=== PATIENT | male | born 1955 | race Hispanic/Latino ===

== ENCOUNTER 2018-12-13 10:05 | Outpatient (CLI) | payer MEDICAID, OTHER ==
[2018-12-13] MEDS ORDERED: XYLOCAINE TOPICAL 4% TP ONE (10:11)
[2018-12-13] MEDS ORDERED: AD OINTMENT TP SCH (12:00)
== END 2018-12-13 10:06 | disposition home or self-care (01) ==
LOC: WOUND 10:05
PROVIDERS: ATTEND Surgery
DX: I87.311 Chronic venous hypertension (idiopathic) with ulcer of right lower extremity (principal); E11.622 Type 2 diabetes mellitus with other skin ulcer; L97.812 Non-pressure chronic ulcer of other part of right lower leg with fat layer exposed; E11.40 Type 2 diabetes mellitus with diabetic neuropathy, unspecified; I89.0 Lymphedema, not elsewhere classified; F17.210 Nicotine dependence, cigarettes, uncomplicated

== ENCOUNTER 2018-12-20 10:57 | Outpatient (CLI) | payer OTHER | END 2018-12-20 10:58 | disposition home or self-care (01) | LOC: WOUND 10:57 | PROVIDERS: ATTEND Surgery | DX: E11.622 Type 2 diabetes mellitus with other skin ulcer (principal); I87.311 Chronic venous hypertension (idiopathic) with ulcer of right lower extremity; L97.812 Non-pressure chronic ulcer of other part of right lower leg with fat layer exposed; E11.40 Type 2 diabetes mellitus with diabetic neuropathy, unspecified; I89.0 Lymphedema, not elsewhere classified; F17.290 Nicotine dependence, other tobacco product, uncomplicated ==

== ENCOUNTER 2018-12-27 10:53 | Outpatient (CLI) | payer OTHER ==
[2018-12-27] MEDS ORDERED: XYLOCAINE TOPICAL 4% TP ONE (11:00)
== END 2018-12-27 10:54 | disposition home or self-care (01) ==
LOC: WOUND 10:53
PROVIDERS: ATTEND Surgery
DX: E11.622 Type 2 diabetes mellitus with other skin ulcer (principal); L97.812 Non-pressure chronic ulcer of other part of right lower leg with fat layer exposed; I87.311 Chronic venous hypertension (idiopathic) with ulcer of right lower extremity; E11.40 Type 2 diabetes mellitus with diabetic neuropathy, unspecified; I89.0 Lymphedema, not elsewhere classified; I10 Essential (primary) hypertension; I87.8 Other specified disorders of veins; F17.290 Nicotine dependence, other tobacco product, uncomplicated

== ENCOUNTER 2019-03-25 04:42 | Inpatient (IN) | payer OTHER ==
[2019-03-25] MEDS ORDERED: NACL 0.9% 1000 ML 1,000 ML IV ONE ×6 (05:02→16:36)
[2019-03-25 05:46] LABS: Hematocrit 31.5 % (35.5-45.6); Hemoglobin 10.6 gm/dl (11.8-15.2); Mean Corpuscular HGB Conc 34 % (32-34); Mean Corpuscular Volume 93 fl (84-94); Platelet Count 519 K/mm3 (140-440); Red Blood Count 3.38 M/mm3 (3.65-5.03); Red Cell Distribution Width 14.5 % (13.2-15.2)
--- NOTE | 2019-03-25 05:46 | XRay Report ---
PROCEDURE: XR CHEST 1V AP TECHNIQUE: Chest radiograph single view. HISTORY: hypotension COMPARISONS: None . FINDINGS: Single frontal view of the chest was acquired. The heart is mildly large. There is no evide nce of congestive heart failure. There is no consolidative infiltrate. IMPRESSION: Mild cardiomegaly. Otherwise, no active disease in the chest This document is electronically signed by Justin Foley MD., March 25 2019 05:44:58 AM ET
[2019-03-25 06:10] LABS: Albumin 2.2 g/dL (3.9-5); Calcium 8.8 mg/dL (8.4-10.2)
[2019-03-25] MEDS ORDERED: ZOSYN/NS 4.5GM/100ML 4.5 GM/100 ML VIAL IV ONE (06:10)
[2019-03-25] MEDS ORDERED: VANCOMYCIN PHARMACY TO DOSE IV ONE (06:18)
[2019-03-25] MEDS ORDERED: VANCOMYCIN 2,000 MG in NACL 0.9% 500 ML 500 ML IV ONE ×2 (06:30→11:30)
--- NOTE | 2019-03-25 07:05 | Cat Scan Report ---
PROCEDURE: CT ABDOMEN PELVIS WO CON TECHNIQUE: Routine axial imaging was obtained of the abdomen and pelvis without oral or IV contrast. Sagittal and coronal reconstructions were reviewed. HISTORY: abd pain COMPARISONS: None FINDINGS: Images through the lung bases reveal atelectatic changes and airspace disease in the left lower lobe. Pneumonia cannot be excluded. There is minimal atelectasis in the right lung base. The liver is normal in size and reveals diminished attenuation compatible hepatic steatosis. The gall bladder and biliary tree appear normal. The pancreas reveals partial fatty replacement. The spleen an d adrenal glands appear normal. The kidneys show no evidence of stones or hydronephrosis. There is a 2.5 cm benign cortical cyst in the middle third of the right kidney. There is calcification of the ab dominal aorta which is normal in caliber. The bowel loops are normal in caliber and course. The colon is not well-distended. Because of this the mucosa appears subtly prominent. There is minimal free fl uid in the pelvis and upper abdomen. In the pelvis the prostate gland and bladder appear normal. The skeletal structures reveal degenerative arthritic changes in the lumbar spine. IMPRESSION: Left lower lobe atelectatic changes and airspace disease. Developing pneumonia cannot be excluded. Mi nimal atelectasis right lung base. Hepatic steatosis. Partial fatty replacement of the pancreas. Small cortical cyst in the right kidney.. No evidence of hydronephrosis. Slight prominence of the mucosa in the colon which is in part related to poor distention of the colon . Mild colitis still cannot be excluded. Minimal ascites. Degenerative arthritic changes lumbar spine. Appendix not identified. No evidence of any inflammatory process in the right lower quadrant. This document is electronically signed by Natanael Hou MD., March 25 2019 07:02:38 AM ET
[2019-03-25] MEDS ORDERED: ATROVENT IH ONE (07:08)
[2019-03-25] MEDS ORDERED: PROVENTIL IH ONE ×2 (07:08→17:34)
[2019-03-25 07:31] LABS: INR 1.11 (0.87-1.13)
[2019-03-25 07:32] LABS: Partial Thromboplastin Time 31.4 Sec. (24.2-36.6)
[2019-03-25 07:35] LABS: Band Neutrophils # (Manual) 1.5 K/mm3; Basophils % (Manual) 0 % (0.0-1.8); Eosinophils % (Manual) 0 % (0.0-4.3); Myelocytes # (Manual) 0.5 K/mm3; Total Cells Counted 100
[2019-03-25 07:36] LABS: Anisocytosis 1+; Platelet Estimate Consistent w Auto
--- NOTE | 2019-03-25 07:47 | Emergency Department Report ---
ED General Adult HPI - General Chief complaint: Abdominal Pain Stated complaint: ABD PAIN Time Seen by Provider: 03/25/19 06:06 Source: patient, EMS Mode of arrival: Stretcher Limitations: No Limitations - History of Present Illness Initial comments: This is a 63 year old type II diabetic male who has had abdominal pain for approximately 1 week. It appears he mostly in the periumbilical suprapubic area. EMS was summoned on Wednesday and responded. Patient was informed he had an irregular heart rhythm at that time. He admits he did not want to go to the hospital. He states "hindsight is ". It is nice gentleman and quite cooperative. He presented to the emergency department prior to my arrival and was found to have a blood pressure in the 60s. Some preliminary medical screening was ordered. Initially after my encounter a plain CT of the abdomen was ordered to screen the patient for any sort of intra-abdominal catastrophe. It was essentially negative. Patient presents with his who states that he has been going to Dr. Casas at the wound care clinic; see associated records. Apparently he has not been admitted to the hospital here before. He has no prior history of abdominal surgery. He has wounds of his left leg as well as bilateral lymphedema. Patient admits to increasing leg swelling and redness. He denies any shortness of breath. However his breathing is obviously labored. He denies chest pain. He states the abdominal pain is been intermittent for nearly a week. -: Gradual, week(s) Location: abdomen Radiation: non-radiation Quality: aching Consistency: constant Improves with: none Worsens with: none Associated Symptoms: denies other symptoms Treatments Prior to Arrival: none - Related Data Allergies Allergy/AdvReac Type Severity Reaction Status Date / Time venom-honey bee AdvReac Shortness Verified 03/25/19 04:55 of Breath ED Review of Systems ROS: Stated complaint: ABD PAIN Other details as noted in HPI Constitutional: denies: chills, fever Eyes: denies: eye pain, eye discharge, vision change ENT: denies: ear pain, throat pain Respiratory: denies: cough, shortness of breath, wheezing Cardiovascular: denies: chest pain, palpitations Endocrine: no symptoms reported Gastrointestinal: abdominal pain. denies: nausea, vomiting, diarrhea Genitourinary: denies: urgency, dysuria Musculoskeletal: as per HPI. 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 Absent: tenderness, meningismus - Respiratory Respiratory exam: Present: respiratory distress, rhonchi (lateral) - Cardiovascular Cardiovascular Exam: Present: tachycardia, irregular rhythm. Absent: systolic murmur, diastolic murmur, rubs, gallop - GI/Abdominal GI/Abdominal exam: Present: soft, distended, tenderness (mild suprapubic), normal bowel sounds. Absent: guarding, rebound, rigid, organomegaly, mass (Limited exam) - Rectal Rectal exam: Present: deferred - Extremities Exam Extremities exam: Present: other (Jah lymphedema bilaterally with erythema of both legs and dressed wound on the right. Somewhat poorly palpated peripheral pulses but severe edema present. No signs of arterial ischemia) - Back Exam Back exam: Present: normal inspection - Neurological Exam Neurological exam: Present: alert, oriented X3 - Psychiatric Psychiatric exam: Present: normal affect, normal mood - Skin Skin exam: Present: warm, dry, intact, normal color. Absent: rash ED Course Vital Signs 03/25/19 03/25/19 03/25/19 04:44 04:49 05:00 Temperature 97.7 F Pulse Rate 81 85 82 Pulse Rate [ Anterior Bilateral] Respiratory 23 22 25 H Rate Respiratory Rate [Anterior Bilateral] Blood Pressure 63/32 59/20 O2 Sat by Pulse 96 90 Oximetry 03/25/19 03/25/19 03/25/19 05:15 05:30 05:45 Temperature Pulse Rate 77 83 86 Pulse Rate [ Anterior Bilateral] Respiratory 24 28 H 25 H Rate Respiratory Rate [Anterior Bilateral] Blood Pressure 58/31 61/29 71/35 O2 Sat by Pulse Oximetry 03/25/19 03/25/19 03/25/19 06:00 06:15 06:52 Temperature Pulse Rate 93 H 95 H 100 H Pulse Rate [ Anterior Bilateral] Respiratory 26 H 23 31 H Rate Respiratory Rate [Anterior Bilateral] Blood Pressure 63/36 74/44 O2 Sat by Pulse 99 Oximetry 03/25/19 03/25/19 03/25/19 06:59 07:04 07:06 Temperature Pulse Rate 96 H 98 H Pulse Rate [ Anterior Bilateral] Respiratory 34 H 28 H 29 H Rate Respiratory Rate [Anterior Bilateral] Blood Pressure O2 Sat by Pulse Oximetry 03/25/19 03/25/19 03/25/19 07:08 07:10 07:12 Temperature Pulse Rate 98 H 99 H 99 H Pulse Rate [ Anterior Bilateral] Respiratory 26 H 28 H 27 H Rate Respiratory Rate [Anterior Bilateral] Blood Pressure 80/43 O2 Sat by Pulse 80 L Oximetry 03/25/19 03/25/19 03/25/19 07:13 07:14 07:15 Temperature Pulse Rate 101 H 98 H 98 H Pulse Rate [ Anterior Bilateral] Respiratory 28 H 26 H 28 H Rate Respiratory Rate [Anterior Bilateral] Blood Pressure 80/43 80/43 73/42 O2 Sat by Pulse 95 91 Oximetry 03/25/19 03/25/19 03/25/19 07:16 07:20 07:30 Temperature Pulse Rate 105 H 98 H Pulse Rate [ 101 H Anterior Bilateral] Respiratory 28 H 29 H Rate Respiratory 24 Rate [Anterior Bilateral] Blood Pressure 79/39 82/45 O2 Sat by Pulse 91 Oximetry 03/25/19 03/25/19 03/25/19 07:40 07:42 07:46 Temperature Pulse Rate 104 H 111 H Pulse Rate [ 106 H Anterior Bilateral] Respiratory 29 H 26 H Rate Respiratory 22 Rate [Anterior Bilateral] Blood Pressure 93/54 89/46 O2 Sat by Pulse 90 Oximetry 03/25/19 03/25/19 03/25/19 07:50 07:56 08:00 Temperature Pulse Rate 115 H 111 H 106 H Pulse Rate [ Anterior Bilateral] Respiratory 21 22 27 H Rate Respiratory Rate [Anterior Bilateral] Blood Pressure 79/46 79/39 84/54 O2 Sat by Pulse 81 L 92 80 L Oximetry 03/25/19 03/25/19 03/25/19 08:06 08:10 08:16 Temperature Pulse Rate 141 H 114 H 121 H Pulse Rate [ Anterior Bilateral] Respiratory 20 21 21 Rate Respiratory Rate [Anterior Bilateral] Blood Pressure 84/54 79/39 104/64 O2 Sat by Pulse 86 90 Oximetry 03/25/19 03/25/19 03/25/19 08:20 08:26 08:30 Temperature Pulse Rate 143 H 151 H 155 H Pulse Rate [ Anterior Bilateral] Respiratory 22 22 19 Rate Respiratory Rate [Anterior Bilateral] Blood Pressure 104/64 104/64 99/56 O2 Sat by Pulse 86 85 80 L Oximetry 03/25/19 03/25/19 03/25/19 08:36 08:40 08:45 Temperature Pulse Rate 143 H 150 H 163 H Pulse Rate [ Anterior Bilateral] Respiratory 24 16 19 Rate Respiratory Rate [Anterior Bilateral] Blood Pressure 99/56 99/56 105/60 O2 Sat by Pulse 75 L 65 L 69 L Oximetry 03/25/19 03/25/19 03/25/19 08:50 08:56 09:00 Temperature Pulse Rate 137 H 117 H 120 H Pulse Rate [ Anterior Bilateral] Respiratory 16 17 22 Rate Respiratory Rate [Anterior Bilateral] Blood Pressure 105/60 105/60 105/60 O2 Sat by Pulse 91 89 87 Oximetry 03/25/19 03/25/19 03/25/19 09:06 09:10 09:16 Temperature Pulse Rate 122 H 116 H 114 H Pulse Rate [ Anterior Bilateral] Respiratory 22 25 H 27 H Rate Respiratory Rate [Anterior Bilateral] Blood Pressure 79/47 79/47 75/57 O2 Sat by Pulse 91 60 L Oximetry 03/25/19 03/25/19 03/25/19 09:20 09:26 09:30 Temperature Pulse Rate 114 H 112 H 112 H Pulse Rate [ Anterior Bilateral] Respiratory 24 20 22 Rate Respiratory Rate [Anterior Bilateral] Blood Pressure 75/57 75/57 117/85 O2 Sat by Pulse 89 Oximetry - Reevaluation(s) Reevaluation #1: CT abdomen and pelvis really showed nothing acute. Dr. Chavarria was involved in the case early on and came to see the patient. The patient required fluid bolus spite it is elevated BNP as he was substantially hypotensive. His blood pressure did transiently rise to the 90s and low 100s. However, it dropped to the 70s again despite fluid. Patient continued to state that he was not having breathing difficulty although he did appear to have an obvious increased work of breathing. Ultimately it was decided to place a central line in his right femoral vein. This was really the only available access as the patient literally has no neck and a very kyphotic chest. Anatomically this was the only option short of a PICC line which was not available. That was placed without difficulty. I decided to utilize dopamine with the hope that this might be a better choice than Levophed considering the patient's congestive heart failure. A Elder was placed. Patient was given antibiotic coverage initially by me and further coverage per hospitalist staff. Patient continued to mentate well. He states his abdominal pain had improved. He was given bicarbonate and insulin/D50. It is expected that his potassium of 5.6 should improve considering his prerenal state. Another BMP is ordered. Lactic acid level of 4 decreased to 2.4. The patient did not complain of shortness of breath. Notwithstanding, he was placed on BiPAP. I did observe him to be ventilating well after BiPAP which he accepted without difficulty. Patient will be admitted to the intensive care unit for further care and evaluation and treatment by the hospitalist staff/their consultants. 03/25/19 11:30 03/25/19 11:35 03/25/19 11:36 - Central Line Placement Right Femoral Consent Obtained: verbal consent Time Out Performed: No Patient Placed on Monitor/Pulse Ox: Yes Prep: mask, gown, gloves Central Line Prep: Povidone-Iodine 1%, Chlorhexidine scrub Local Anesthesia Used: Lidocaine 1% Amount of Anesthesia Used (mls): 8 Ultrasound Used for Placement: No Central Line Lumen Inserted: triple Bloods Obtained for Lab: No Central Line Position: good blood return (dark red nonpulsatile), sutured in place with nyl Dressing Applied: Tegaderm, other (antibiotic this) Patient Tolerated Procedure: well (single attempt) Complications: none ED Medical Decision Making - Lab Data Result diagrams: 03/25/19 05:20 03/25/19 05:20 Laboratory Results - last 24 hr 03/25/19 03/25/19 03/25/19 05:11 05:20 05:20 WBC 25.2 H RBC 3.38 L Hgb 10.6 L Hct 31.5 L MCV 93 MCH 31 MCHC 34 RDW 14.5 Plt Count 519 H Add Manual Diff Complete Total Counted 100 Seg Neuts % (Manual) 80.0 H Band Neutrophils % 6.0 Lymphocytes % (Manual) 5.0 L Reactive Lymphs % (Man) 0 Monocytes % (Manual) 7.0 Eosinophils % (Manual) 0 Basophils % (Manual) 0 Metamyelocytes % 0 Myelocytes % 2.0 Promyelocytes % 0 Blast Cells % 0 Nucleated RBC % Not Reportable Seg Neutrophils # Man 20.2 H Band Neutrophils # 1.5 Lymphocytes # (Manual) 1.3 Abs React Lymphs (Man) 0.0 Monocytes # (Manual) 1.8 H Eosinophils # (Manual) 0.0 Basophils # (Manual) 0.0 Metamyelocytes # 0.0 Myelocytes # 0.5 Promyelocytes # 0.0 Blast Cells # 0.0 WBC Morphology Not Reportable Hypersegmented Neuts Not Reportable Hyposegmented Neuts Not Reportable Hypogranular Neuts Not Reportable Smudge Cells Not Reportable Toxic Granulation Not Reportable Toxic Vacuolation Not Reportable Dohle Bodies Not Reportable Pelger-Huet Anomaly Not Reportable Gianluca Rods Not Reportable Platelet Estimate Consistent w auto Clumped Platelets Not Reportable Plt Clumps, EDTA Not Reportable Large Platelets Not Reportable Giant Platelets Not Reportable Platelet Satelliting Not Reportable Plt Morphology Comment Not Reportable RBC Morphology Not Reportable Dimorphic RBCs Not Reportable Polychromasia Not Reportable Hypochromasia Not Reportable Poikilocytosis Not Reportable Anisocytosis 1+ Microcytosis Not Reportable Macrocytosis Not Reportable Spherocytes Not Reportable Pappenheimer Bodies Not Reportable Sickle Cells Not Reportable Target Cells Not Reportable Tear Drop Cells Not Reportable Ovalocytes Not Reportable Helmet Cells Not Reportable [place] Bodies Not Reportable [place] Rings Not Reportable Kwame Cells Not Reportable Bite Cells Not Reportable Crenated Cell Not Reportable Elliptocytes Not Reportable Acanthocytes (Spur) Not Reportable Rouleaux Not Reportable Hemoglobin C Crystals Not Reportable Schistocytes Not Reportable Malaria parasites Not Reportable Didier Bodies Not Reportable Hem Pathologist Commnt No PT INR APTT POC ABG pH POC ABG pCO2 POC ABG pO2 POC ABG HCO3 POC ABG Total CO2 POC ABG O2 Sat POC ABG Base Excess FiO2 Sodium 156 H Potassium 5.4 H Chloride 117.6 H Carbon Dioxide 16 L Anion Gap 28 BUN 99 H Creatinine 4.3 H Estimated GFR 14 BUN/Creatinine Ratio 23 Glucose 73 L POC Glucose 74 Lactic Acid Calcium 8.8 Magnesium Total Bilirubin 0.30 AST 54 H ALT 35 Alkaline Phosphatase 185 H Total Creatine Kinase CK-MB (CK-2) CK-MB (CK-2) Rel Index Troponin T NT-Pro-B Natriuret Pep Total Protein 7.3 Albumin 2.2 L Albumin/Globulin Ratio 0.4 Lipase Blood Type Antibody Screen 03/25/19 03/25/19 03/25/19 05:20 05:20 05:40 WBC RBC Hgb Hct MCV MCH MCHC RDW Plt Count Add Manual Diff Total Counted Seg Neuts % (Manual) Band Neutrophils % Lymphocytes % (Manual) Reactive Lymphs % (Man) Monocytes % (Manual) Eosinophils % (Manual) Basophils % (Manual) Metamyelocytes % Myelocytes % Promyelocytes % Blast Cells % Nucleated RBC % Seg Neutrophils # Man Band Neutrophils # Lymphocytes # (Manual) Abs React Lymphs (Man) Monocytes # (Manual) Eosinophils # (Manual) Basophils # (Manual) Metamyelocytes # Myelocytes # Promyelocytes # Blast Cells # WBC Morphology Hypersegmented Neuts Hyposegmented Neuts Hypogranular Neuts Smudge Cells Toxic Granulation Toxic Vacuolation Dohle Bodies Pelger-Huet Anomaly Gianluca Rods Platelet Estimate Clumped Platelets Plt Clumps, EDTA Large Platelets Giant Platelets Platelet Satelliting Plt Morphology Comment RBC Morphology Dimorphic RBCs Polychromasia Hypochromasia Poikilocytosis Anisocytosis Microcytosis Macrocytosis Spherocytes Pappenheimer Bodies Sickle Cells Target Cells Tear Drop Cells Ovalocytes Helmet Cells [place] Bodies [place] Rings [place] Cells Bite Cells Crenated Cell Elliptocytes Acanthocytes (Spur) Rouleaux Hemoglobin C Crystals Schistocytes Malaria parasites Didier Bodies Hem Pathologist Commnt PT INR APTT POC ABG pH POC ABG pCO2 POC ABG pO2 POC ABG HCO3 POC ABG Total CO2 POC ABG O2 Sat POC ABG Base Excess FiO2 Sodium Potassium Chloride Carbon Dioxide Anion Gap BUN Creatinine Estimated GFR BUN/Creatinine Ratio Glucose POC Glucose 81 Lactic Acid 4.00 H* Calcium Magnesium 2.30 Total Bilirubin AST ALT Alkaline Phosphatase Total Creatine Kinase 773 H CK-MB (CK-2) 40.0 H CK-MB (CK-2) Rel Index 5.1 H Troponin T < 0.010 NT-Pro-B Natriuret Pep 976.1 H Total Protein Albumin Albumin/Globulin Ratio Lipase 36 Blood Type Antibody Screen 03/25/19 03/25/19 03/25/19 06:47 07:14 07:29 WBC RBC Hgb Hct MCV MCH MCHC RDW Plt Count Add Manual Diff Total Counted Seg Neuts % (Manual) Band Neutrophils % Lymphocytes % (Manual) Reactive Lymphs % (Man) Monocytes % (Manual) Eosinophils % (Manual) Basophils % (Manual) Metamyelocytes % Myelocytes % Promyelocytes % Blast Cells % Nucleated RBC % Seg Neutrophils # Man Band Neutrophils # Lymphocytes # (Manual) Abs React Lymphs (Man) Monocytes # (Manual) Eosinophils # (Manual) Basophils # (Manual) Metamyelocytes # Myelocytes # Promyelocytes # Blast Cells # WBC Morphology Hypersegmented Neuts Hyposegmented Neuts Hypogranular Neuts Smudge Cells Toxic Granulation Toxic Vacuolation Dohle Bodies Pelger-Huet Anomaly Gianluca Rods Platelet Estimate Clumped Platelets Plt Clumps, EDTA Large Platelets Giant Platelets Platelet Satelliting Plt Morphology Comment RBC Morphology Dimorphic RBCs Polychromasia Hypochromasia Poikilocytosis Anisocytosis Microcytosis Macrocytosis Spherocytes Pappenheimer Bodies Sickle Cells Target Cells Tear Drop Cells Ovalocytes Helmet Cells [place] Bodies [place] Rings [place] Cells Bite Cells Crenated Cell Elliptocytes Acanthocytes (Spur) Rouleaux Hemoglobin C Crystals Schistocytes Malaria parasites Didier Bodies Hem Pathologist Commnt PT 15.0 H INR 1.11 APTT 31.4 POC ABG pH 7.270 L POC ABG pCO2 37.2 POC ABG pO2 65 L POC ABG HCO3 17.1 POC ABG Total CO2 18 POC ABG O2 Sat 90 POC ABG Base Excess -10 FiO2 32 Sodium Potassium Chloride Carbon Dioxide Anion Gap BUN Creatinine Estimated GFR BUN/Creatinine Ratio Glucose POC Glucose 109 H Lactic Acid Calcium Magnesium Total Bilirubin AST ALT Alkaline Phosphatase Total Creatine Kinase CK-MB (CK-2) CK-MB (CK-2) Rel Index Troponin T NT-Pro-B Natriuret Pep Total Protein Albumin Albumin/Globulin Ratio Lipase Blood Type Antibody Screen 03/25/19 03/25/19 03/25/19 08:49 08:54 09:31 WBC RBC Hgb Hct MCV MCH MCHC RDW Plt Count Add Manual Diff Total Counted Seg Neuts % (Manual) Band Neutrophils % Lymphocytes % (Manual) Reactive Lymphs % (Man) Monocytes % (Manual) Eosinophils % (Manual) Basophils % (Manual) Metamyelocytes % Myelocytes % Promyelocytes % Blast Cells % Nucleated RBC % Seg Neutrophils # Man Band Neutrophils # Lymphocytes # (Manual) Abs React Lymphs (Man) Monocytes # (Manual) Eosinophils # (Manual) Basophils # (Manual) Metamyelocytes # Myelocytes # Promyelocytes # Blast Cells # WBC Morphology Hypersegmented Neuts Hyposegmented Neuts Hypogranular Neuts Smudge Cells Toxic Granulation Toxic Vacuolation Dohle Bodies Pelger-Huet Anomaly Gianluca Rods Platelet Estimate Clumped Platelets Plt Clumps, EDTA Large Platelets Giant Platelets Platelet Satelliting Plt Morphology Comment RBC Morphology Dimorphic RBCs Polychromasia Hypochromasia Poikilocytosis Anisocytosis Microcytosis Macrocytosis Spherocytes Pappenheimer Bodies Sickle Cells Target Cells Tear Drop Cells Ovalocytes Helmet Cells [place] Bodies [place] Rings Kwame Cells Bite Cells Crenated Cell Elliptocytes Acanthocytes (Spur) Rouleaux Hemoglobin C Crystals Schistocytes Malaria parasites Didier Bodies Hem Pathologist Commnt PT INR APTT POC ABG pH POC ABG pCO2 POC ABG pO2 POC ABG HCO3 POC ABG Total CO2 POC ABG O2 Sat POC ABG Base Excess FiO2 Sodium Potassium Chloride Carbon Dioxide Anion Gap BUN Creatinine Estimated GFR BUN/Creatinine Ratio Glucose POC Glucose Lactic Acid 2.40 H* 1.70 Calcium Magnesium Total Bilirubin AST ALT Alkaline Phosphatase Total Creatine Kinase CK-MB (CK-2) CK-MB (CK-2) Rel Index Troponin T NT-Pro-B Natriuret Pep Total Protein Albumin Albumin/Globulin Ratio Lipase Blood Type O POSITIVE Antibody Screen Negative 03/25/19 11:06 WBC RBC Hgb Hct MCV MCH MCHC RDW Plt Count Add Manual Diff Total Counted Seg Neuts % (Manual) Band Neutrophils % Lymphocytes % (Manual) Reactive Lymphs % (Man) Monocytes % (Manual) Eosinophils % (Manual) Basophils % (Manual) Metamyelocytes % Myelocytes % Promyelocytes % Blast Cells % Nucleated RBC % Seg Neutrophils # Man Band Neutrophils # Lymphocytes # (Manual) Abs React Lymphs (Man) Monocytes # (Manual) Eosinophils # (Manual) Basophils # (Manual) Metamyelocytes # Myelocytes # Promyelocytes # Blast Cells # WBC Morphology Hypersegmented Neuts Hyposegmented Neuts Hypogranular Neuts Smudge Cells Toxic Granulation Toxic Vacuolation Dohle Bodies Pelger-Huet Anomaly Gianluca Rods Platelet Estimate Clumped Platelets Plt Clumps, EDTA Large Platelets Giant Platelets Platelet Satelliting Plt Morphology Comment RBC Morphology Dimorphic RBCs Polychromasia Hypochromasia Poikilocytosis Anisocytosis Microcytosis Macrocytosis Spherocytes Pappenheimer Bodies Sickle Cells Target Cells Tear Drop Cells Ovalocytes Helmet Cells [place] Bodies [place] Rings Kwame Cells Bite Cells Crenated Cell Elliptocytes Acanthocytes (Spur) Rouleaux Hemoglobin C Crystals Schistocytes Malaria parasites Didier Bodies Hem Pathologist Commnt PT INR APTT POC ABG pH 7.169 L POC ABG pCO2 43.7 POC ABG pO2 63 L POC ABG HCO3 15.9 POC ABG Total CO2 17 POC ABG O2 Sat 85 POC ABG Base Excess -13 FiO2 45 Sodium Potassium Chloride Carbon Dioxide Anion Gap BUN Creatinine Estimated GFR BUN/Creatinine Ratio Glucose POC Glucose Lactic Acid Calcium Magnesium Total Bilirubin AST ALT Alkaline Phosphatase Total Creatine Kinase CK-MB (CK-2) CK-MB (CK-2) Rel Index Troponin T NT-Pro-B Natriuret Pep Total Protein Albumin Albumin/Globulin Ratio Lipase Blood Type Antibody Screen - EKG Data -: EKG Interpreted by Ga EKG shows normal: axis (normal), intervals (intraventricular conduction delay right bundloid) Rate: tachycardia - EKG Data When compared to previous EKG there are: previous EKG unavailable Interpretation: nonspecific ST-T wave luz Atrial fibrillation versus multifocal atrial tachycardia 03/25/19 11:43 - Radiology Data Radiology results: report reviewed (CT abdomen and pelvis have initiated, Dopplers no DVT no mention of arterial flow problems, chest x-ray cardiomegaly without decompensation) Critical Care Time: Yes Critical care time in (mins) excluding proc time.: 110 Critical care attestation.: If time is entered above; I have spent that time in minutes in the direct care of this critically ill patient, excluding procedure time. ED Disposition Clinical Impression: Septic shock, Lymphangitis, Atrial fibrillation with RVR, Prerenal azotemia, Hyperkalemia Disposition: [id number] OP ADMIT IP TO THIS HOSP Is pt being admited?: Yes Does the pt Need Aspirin: Yes Condition: Stable Time of Disposition: 11:44
[2019-03-25] MEDS ORDERED: D50W (25GM) Syringe IV ONE ×4 (07:50→23:00)
[2019-03-25] MEDS ORDERED: HumuLIN R IV ONE ×3 (07:50→23:00)
[2019-03-25] MEDS ORDERED: XYLOCAINE 1% 20 mL ONE (08:20)
--- NOTE | 2019-03-25 09:04 | Vascular Lab Report ---
PROCEDURE: VL VENOUS DUPLEX LE BILAT TECHNIQUE: Grayscale, color and spectral Doppler ultrasound evaluation of both lower extremities for DVT HISTORY: leg swelling hypotension COMPARISONS: None FINDINGS: The deep veins in the right lower extremity demonstrate normal compression, color Doppler appearance and spectral Doppler waveforms. Normal respiratory variation and response to augmentation (where perf ormed.) The deep veins in the left lower extremity demonstrate normal compression, color Doppler appearance a nd spectral Doppler waveforms. Normal respiratory variation and response to augmentation (where perfo rmed.) IMPRESSION: No sonographic evidence of DVT in the imaged portions of the right and left lower extremities. This document is electronically signed by Washington Doyle MD., March 25 2019 09:02:48 AM ET
[2019-03-25] MEDS ORDERED: INTROPIN DRIP 800 MG/D5W 250 ML 800 MG/250 ML BAG IV ONE (09:36)
[2019-03-25] MEDS ORDERED: XYLOCAINE 1% 20 mL INFILTRATI ONE (09:51)
[2019-03-25] MEDS ORDERED: VANCOMYCIN PHARMACY TO DOSE IV SCH (11:00)
[2019-03-25] MEDS: DUONEB *Not for PRN Use IH SCH ×3 (11:13→20:49)
--- NOTE | 2019-03-25 11:57 | History and Physical Report ---
History of Present Illness Date of examination: 03/25/19 Date of admission: 03/25/19 09:37 Chief complaint: Abdominal pain History of present illness: Patient is poor historian 63-year-old male with past medical history significant for morbid obesity, bilateral neck edema, diabetes mellitus, hypertension presented to the emergency department with complaints of lower abdominal pain. Pain was sharp, 10 out of 10 intensity, with no radiation, not alleviating or aggravating factors identified. Patient had bowel movement last night. Patient denied nausea, vomiting, diarrhea, constipation, fever, chills. Patient also complains shortness of breath on exertion, denied chest pain, palpitation that admitted for occasional cough productive of whitish sputum. Patient said he has chronic bilateral leg swelling but recently it is getting worse. There is a discharge from right leg. Patient said he was scheduled to see a wound doctor. In the emergency department patient was in septic shock, acute renal failure, lactic acidosis, respiratory failure and A. fib with RVR. Patient will be admitted to ICU for further evaluation and management. Back Sewer, community product specialist and body masker consulted. REVIEW OF SYSTEMS: GENERAL: no weight change, no fatigue, no fever HEAD: no head ache EYES: no blurry vision, no acute visual loss EARS: no hearing loss, no discharge, no earache NOSE: no stuffiness, no sneezing, no discharge MOUTH, THROAT AND NECK: no bleeding gums, no sore throat, no swollen neck CARDIAC: As stated in the HPI. RESPIRATORY: As stated in HPI. GI: As stated in HPI. URINARY: no change in frequency, no urgency, no polyuria, no hematuria, no incontinence MUSCULOSKELETAL: no muscle weakness, no pain, no joint stiffness NEUROLOGIC: no loss of sensation/numbness, no tingling, no tremors, no weakness/paralysis HEMATOLOGIC: no anemia, no easy bruising SKIN: no rashes ENDOCRINE: no heat/cold intolerance, no polyuria, no polydipsia, no thyroid problems, no diabetes PSYCHIATRIC: no anxiety, no depression, no suicidal ideations Past History Past Medical History: diabetes, hypertension Past Surgical History: Other (removal of skin cancer on his shoulder area) Social history: smoking (smoked 2 packs of cigarettes per day), full code. denies: alcohol abuse, prescription drug abuse, IV drug use Family history: no significant family history Medications and Allergies Allergies Allergy/AdvReac Type Severity Reaction Status Date / Time venom-honey bee AdvReac Shortness Verified 03/25/19 04:55 of Breath Active Meds: Active Medications Albuterol/Ipratropium (Duoneb *Not For Prn Use*) 1 ampul IH Q4HRT [facility] Last Admin: 03/25/19 11:13 Dose: 1 ampul Documented by: Arformoterol Tartrate (Brovana Nebu) 15 mcg IH Q12HRT [facility] Aspirin (Baby Aspirin) 162 mg PO QDAY ONE Stop: 03/26/19 11:45 Budesonide (Pulmicort) 0.5 mg IH Q12HRT [facility] Dopamine HCl/Dextrose (Intropin Drip 800 Mg/D5w 250 Ml) 800 mg in 250 mls @ 5.475 mls/hr IV TITR ONE; Protocol Stop: 03/27/19 07:15 Last Titration: 03/25/19 10:15 Dose: 4 mcg/kg/min, 10.95 mls/hr Documented by: Sodium Chloride (Nacl 0.9% 1000 Ml) 1,000 mls @ 999 mls/hr IV BOLUS ONE Stop: 03/25/19 11:59 Cefepime HCl 0.5 gm/ Sodium (Chloride) 100 mls @ 200 mls/hr IV Q12HR [facility] Sodium Chloride (Nacl 0.9% 1000 Ml) 1,000 mls @ 999 mls/hr IV BOLUS ONE Stop: 03/25/19 12:45 Vasopressin 20 unit/ Sodium (Chloride) 101 mls @ 9.09 mls/hr IV TITR [facility]; Protocol Exam - Physical Exam Narrative exam: Patient is in cardiopulmonary distress. The patient appeared well nourished and normally developed. Vital signs as documented. Head exam is unremarkable. No scleral icterus . Neck is without jugular venous distension, thyromegaly, or carotid bruits. Lungs wheezing all over the chest Cardiac exam reveals regular rate and Rhythm. Tachycardic. Abdominal exam reveals mild abdominal tenderness and rigidity. Extremities bilateral lower extremity swelling, non-pitting edema. Oozing wound in the right lower leg. BARIATRIC PHYSICIAN: Alert and oriented 3. No focal weakness. - Constitutional Vitals: Temp Pulse Resp BP Pulse Ox 99.2 F 124 H 25 H 109/65 96 03/25/19 10:47 03/25/19 11:15 03/25/19 11:15 03/25/19 11:04 03/25/19 11:04 Results - Labs CBC & Chem 7: 03/25/19 05:20 03/25/19 05:20 Labs: Laboratory Last Values WBC 25.2 K/mm3 (4.5-11.0) H 03/25/19 05:20 RBC 3.38 M/mm3 (3.65-5.03) L 03/25/19 05:20 Hgb 10.6 gm/dl (11.8-15.2) L 03/25/19 05:20 Hct 31.5 % (35.5-45.6) L 03/25/19 05:20 MCV 93 fl (84-94) 03/25/19 05:20 MCH 31 pg (28-32) 03/25/19 05:20 MCHC 34 % (32-34) 03/25/19 05:20 RDW 14.5 % (13.2-15.2) 03/25/19 05:20 Plt Count 519 K/mm3 (140-440) H 03/25/19 05:20 Add Manual Diff Complete 03/25/19 05:20 Total Counted 100 03/25/19 05:20 Seg Neuts % (Manual) 80.0 % (40.0-70.0) H 03/25/19 05:20 6.0 % 03/25/19 05:20 5.0 % (13.4-35.0) L 03/25/19 05:20 Reactive Lymphs % (Man) 0 % 03/25/19 05:20 7.0 % (0.0-7.3) 03/25/19 05:20 0 % (0.0-4.3) 03/25/19 05:20 0 % (0.0-1.8) 03/25/19 05:20 0 % 03/25/19 05:20 2.0 % 03/25/19 05:20 0 % 03/25/19 05:20 0 % 03/25/19 05:20 Nucleated RBC % Not Reportable 03/25/19 05:20 Seg Neutrophils # Man 20.2 K/mm3 (1.8-7.7) H 03/25/19 05:20 Band Neutrophils # 1.5 K/mm3 03/25/19 05:20 1.3 K/mm3 (1.2-5.4) 03/25/19 05:20 Abs React Lymphs (Man) 0.0 K/mm3 03/25/19 05:20 1.8 K/mm3 (0.0-0.8) H 03/25/19 05:20 0.0 K/mm3 (0.0-0.4) 03/25/19 05:20 0.0 K/mm3 (0.0-0.1) 03/25/19 05:20 0.0 K/mm3 03/25/19 05:20 0.5 K/mm3 03/25/19 05:20 0.0 K/mm3 03/25/19 05:20 Blast Cells # 0.0 K/mm3 03/25/19 05:20 WBC Morphology Not Reportable 03/25/19 05:20 Hypersegmented Neuts Not Reportable 03/25/19 05:20 Hyposegmented Neuts Not Reportable 03/25/19 05:20 Hypogranular Neuts Not Reportable 03/25/19 05:20 Not Reportable 03/25/19 05:20 Not Reportable 03/25/19 05:20 Not Reportable 03/25/19 05:20 Not Reportable 03/25/19 05:20 Not Reportable 03/25/19 05:20 Not Reportable 03/25/19 05:20 Consistent w auto 03/25/19 05:20 Not Reportable 03/25/19 05:20 Plt Clumps, EDTA Not Reportable 03/25/19 05:20 Not Reportable 03/25/19 05:20 Not Reportable 03/25/19 05:20 Not Reportable 03/25/19 05:20 Plt Morphology Comment Not Reportable 03/25/19 05:20 RBC Morphology Not Reportable 03/25/19 05:20 Dimorphic RBCs Not Reportable 03/25/19 05:20 Not Reportable 03/25/19 05:20 Not Reportable 03/25/19 05:20 Not Reportable 03/25/19 05:20 1+ 03/25/19 05:20 Not Reportable 03/25/19 05:20 Not Reportable 03/25/19 05:20 Not Reportable 03/25/19 05:20 Not Reportable 03/25/19 05:20 Not Reportable 03/25/19 05:20 Not Reportable 03/25/19 05:20 Not Reportable 03/25/19 05:20 Not Reportable 03/25/19 05:20 Not Reportable 03/25/19 05:20 Not Reportable 03/25/19 05:20 Not Reportable 03/25/19 05:20 Not Reportable 03/25/19 05:20 Not Reportable 03/25/19 05:20 Not Reportable 03/25/19 05:20 Not Reportable 03/25/19 05:20 Acanthocytes (Spur) Not Reportable 03/25/19 05:20 Rouleaux Not Reportable 03/25/19 05:20 Not Reportable 03/25/19 05:20 Not Reportable 03/25/19 05:20 Not Reportable 03/25/19 05:20 Not Reportable 03/25/19 05:20 Hem Pathologist Commnt No 03/25/19 05:20 PT 15.0 Sec. (12.2-14.9) H 03/25/19 07:14 INR 1.11 (0.87-1.13) 03/25/19 07:14 APTT 31.4 Sec. (24.2-36.6) 03/25/19 07:14 POC ABG pH 7.169 (7.35-7.45) L 03/25/19 11:06 POC ABG pCO2 43.7 (35-45) 03/25/19 11:06 POC ABG pO2 63 (80-105) L 03/25/19 11:06 POC ABG HCO3 15.9 (22-26 mml/L) 03/25/19 11:06 POC ABG Total CO2 17 (23-27mmol/L) 03/25/19 11:06 POC ABG O2 Sat 85 03/25/19 11:06 POC ABG Base Excess -13 ((-2) - (+3)mmol/L) 03/25/19 11:06 45 % 03/25/19 11:06 Sodium 156 mmol/L (137-145) H 03/25/19 05:20 Potassium 5.4 mmol/L (3.6-5.0) H 03/25/19 05:20 Chloride 117.6 mmol/L (98-107) H 03/25/19 05:20 Carbon Dioxide 16 mmol/L (22-30) L 03/25/19 05:20 28 mmol/L 03/25/19 05:20 BUN 99 mg/dL (9-20) H 03/25/19 05:20 4.3 mg/dL (0.8-1.5) H 03/25/19 05:20 Estimated GFR 14 ml/min 03/25/19 05:20 23 % 03/25/19 05:20 Glucose 73 mg/dL (75-100) L 03/25/19 05:20 POC Glucose 109 (70-105) H 03/25/19 06:47 Lactic Acid 1.70 mmol/L (0.7-2.0) 03/25/19 09:31 Calcium 8.8 mg/dL (8.4-10.2) 03/25/19 05:20 Magnesium 2.30 mg/dL (1.7-2.3) 03/25/19 05:20 0.30 mg/dL (0.1-1.2) 03/25/19 05:20 AST 54 units/L (5-40) H 03/25/19 05:20 ALT 35 units/L (7-56) 03/25/19 05:20 185 units/L (35-129) H 03/25/19 05:20 773 units/L (55-170) H 03/25/19 05:20 CK-MB (CK-2) 40.0 ng/mL (0.0-4.0) H 03/25/19 05:20 CK-MB (CK-2) Rel Index 5.1 (0-4) H 03/25/19 05:20 < 0.010 ng/mL (0.00-0.029) 03/25/19 05:20 NT-Pro-B Natriuret Pep 976.1 pg/mL (0-900) H 03/25/19 05:20 7.3 g/dL (6.3-8.2) 03/25/19 05:20 2.2 g/dL (3.9-5) L 03/25/19 05:20 0.4 % 03/25/19 05:20 36 units/L (13-60) 03/25/19 05:20 Blood Type O POSITIVE 03/25/19 08:54 Antibody Screen Negative 03/25/19 08:54 Assessment and Plan Assessment and plan: Septic shock, source could be likely right leg wound - Patient was given multiple IV doses of fluids - Started on Levophed - Patient is on IV vancomycin and Zosyn - Blood and urine culture - Back Sewer consulted Metabolic acidosis - Elevated lactic acid level - We give him bicarbonate and will put him on bicarbonate drip - Continue management as above Right leg wound - Wound care consulted Acute renal failure, likely vasomotor nephropathy - We'll continue with IV fluids - Monitor BMP Hypernatremia - Likely due to dehydration Abdominal pain - CT abdomen and pelvis is negative - Symptomatic management Diabetes mellitus - Sliding-scale insulin, Accu-Chek, ADA diet Alcohol abuse -I will put him on CIWA protocol COPD - Duonebs, Brovana and Pulmicort, nebulizer treatment, BiPAP - We'll likely give Solu-Medrol because of severe infection DVT prophylaxis - Heparin The high probability of a clinically significant, sudden or life threatening deterioration of the [CV, renal] system(s) required my full and direct attention, intervention and personal management. The aggregate critical care time was [] minutes. This time is in addition to time spent performing reported procedures but includes the following: [x] Data Review and interpretation [x] Patient assessment and monitoring of vital signs [x] Documentation [x] Medication orders and management Advance Directives: Yes VTE prophylaxis?: Chemical Plan of care discussed with patient/family: Yes
[2019-03-25] MEDS ORDERED: NACL 0.9% 1000 ML 2,000 ML ONE ×2 (11:59→16:33)
[2019-03-25] MEDS: BROVANA NEBU IH SCH ×2 (12:00→20:49)
[2019-03-25] MEDS: PULMICORT IH SCH ×2 (12:00→20:49)
[2019-03-25] MEDS ORDERED: BROVANA NEBU IH ONE ×2 (12:02→20:49)
[2019-03-25] MEDS ORDERED: PULMICORT IH ONE ×2 (12:02→20:50)
[2019-03-25] MEDS ORDERED: D50W (25GM) Syringe IV PRN (12:07)
[2019-03-25] MEDS: MAXIPIME 0.5 GM in NACL 0.9% 100 ML IV SCH (12:13)
[2019-03-25] MEDS: Vasostrict 20 UNIT in NACL 0.9% 100 ML IV SCH (12:29)
[2019-03-25] MEDS ORDERED: SODIUM BICARBONATE 150 MEQ in STERILE WATER 1,000 ML IV SCH (13:00)
[2019-03-25] MEDS ORDERED: MAXIPIME/NS 1 GM/100 ML 1 GM/100 ML BAG IV SCH (14:00)
[2019-03-25] MEDS: HEPARIN SUB-Q SCH (14:04)
[2019-03-25] MEDS ORDERED: HEPARIN ONE (14:08)
--- NOTE | 2019-03-25 14:31 | Consultation ---
History of Present Illness - Reason for Consult Consult date: 03/25/19 acute renal failure, hyperkalemia - History of Present Illness The patient is a 63 YO male with history significant for Morbid obesity, DM type 2, Hypertension, COPD, heavy tobacco use, chronic bilateral leg swelling and Liz betic R leg infection who presented to [facility] ED with complaints of lower abdominal pain. Patient was not able to provide history and the information was obtained from his at the bedside. Pain was sharp, 10 out of 10, no radiation and constant. His also found him confused and short of breath. No h/o nausea, vomiting, diarrhea, constipation, fever, chills, cp, syncope or urinary symptoms. He was prescribed Neurontin, Bactrim and Etodolac. Patient was admitted for septic shock, KAIDEN, respiratory failure and A. fib with RVR. Creatinine is 4.3 with k 5.4. Dental Assistant was consulted for evaluation and management of KAIDEN. Past History Past Medical History: diabetes, hypertension Past Surgical History: Other (removal of skin cancer on his shoulder area) Social history: smoking (smoked 2 packs of cigarettes per day), full code. denies: alcohol abuse, prescription drug abuse, IV drug use Family history: no significant family history Medications and Allergies Allergies Allergy/AdvReac Type Severity Reaction Status Date / Time venom-honey bee AdvReac Shortness Verified 03/25/19 04:55 of Breath Active Meds: Active Medications Albuterol/Ipratropium (Duoneb *Not For Prn Use*) 1 ampul IH Q4HRT [facility] Last Admin: 03/25/19 11:13 Dose: 1 ampul Documented by: Arformoterol Tartrate (Brovana Nebu) 15 mcg IH Q12HRT [facility] Last Admin: 03/25/19 12:00 Dose: 15 mcg Documented by: Aspirin (Baby Aspirin) 162 mg PO QDAY ONE Stop: 03/26/19 11:45 Budesonide (Pulmicort) 0.5 mg IH Q12HRT [facility] Last Admin: 03/25/19 12:00 Dose: 0.5 mg Documented by: Dextrose (D50w (25gm) Syringe) 50 ml IV PRN PRN PRN Reason: Hypoglycemia Heparin Sodium (Porcine) (Heparin) 5,000 unit SUB-Q Q8HR [facility] Last Admin: 03/25/19 14:04 Dose: 5,000 unit Documented by: Dopamine HCl/Dextrose (Intropin Drip 800 Mg/D5w 250 Ml) 800 mg in 250 mls @ 5.475 mls/hr IV TITR ONE; Protocol Stop: 03/27/19 07:15 Last Titration: 03/25/19 13:16 Dose: 0 mcg/kg/min, 0 mls/hr Documented by: Cefepime HCl 0.5 gm/ Sodium (Chloride) 100 mls @ 200 mls/hr IV Q12HR [facility] Last Admin: 03/25/19 12:13 Dose: 200 mls/hr Documented by: Vasopressin 20 unit/ Sodium (Chloride) 101 mls @ 9.09 mls/hr IV TITR [facility]; Protocol Last Admin: 03/25/19 12:29 Dose: 0.03 units/min, 9.09 mls/hr Documented by: Sodium Bicarbonate 150 meq/ (Sterile Water) 1,150 mls @ 75 mls/hr IV DIRECT [facility] Last Admin: 03/25/19 14:04 Dose: 75 mls/hr Documented by: Insulin Human Lispro (Humalog) 0 unit SUB-Q ACHS [facility]; Protocol Review of Systems ROS unobtainable: due to mental status Exam - Vital Signs Vital signs: Vital Signs Temp Pulse Resp BP Pulse Ox 97.7 F 81 23 63/32 96 03/25/19 04:44 03/25/19 04:44 03/25/19 04:44 03/25/19 04:44 03/25/19 04:44 - General Appearance General appearance: well-developed, well-nourished, obese, other (on BIPAP) EENT: ATNC, PERRL Neck: Present: neck supple, trachea midline Respiratory: Ronchi Heart: regular, S1S2, no murmurs Gastrointestinal: Present: normoactive bowel sounds, obese. Absent: tenderness Integumentary: erythema (both LEs), chronic venous stasis, other (R leg covered with dressing) Neurologic: other (able to move extremities) Musculoskeletal: Present: other (1+ edema of both LEs noted) Results - Lab Results 03/25/19 05:20 03/25/19 15:14 Most recent lab results Calcium 8.8 mg/dL (8.4-10.2) 03/25/19 05:20 Magnesium 2.30 mg/dL (1.7-2.3) 03/25/19 05:20 - Image Kidney/bladder ultrasound: other Assessment and Plan 1. Acute kidney injury: Vasomotor KAIDEN in the setting of hypotension / shock. CT abdomen was negative for hydro. Urine studies ordered. Continue IV fluids. Renal prognosis is guarded. Avoid nephrotoxic agents. Meds dosage based on GFR. Patient's gave permission for dialysis if needed. 2. FEN: Hyperkalemia, s/p Insulin-dextrose. Anion gap MA in the setting of lactic acidosis and KAIDEN. Continue Bicarb drip. Hypernatremia. Monitor lytes. 3. Septic shock: On Vasopressin. 4. Respiratory failure: On BIPAP. H/o COPD. 5. Diabetic LE infection. 6. Anemia: POA. 7. DM type 2.
[2019-03-25 15:18] LABS: Creatinine,Urine 69.5 mg/dL (0.1-20.0)
[2019-03-25 15:23] LABS: Bilirubin,Urine NEG (Negative); Blood,Urine SM (Negative); Color,Urine Yellow (Yellow); Hyaline Casts,Urine 6 /LPF; Mucus,Urine FEW /HPF; Protein,Urine <15 mg/dL mg/dL (Negative); WBC,Urine < 1.0 /HPF (0.0-6.0)
--- NOTE | 2019-03-25 15:39 | Consultation ---
History of Present Illness Consult date: 03/25/19 Requesting physician: BRII TAI Reason for consult: other (Metabolic acidosis) History of present illness: 63-year-old male with past medical history significant for morbid obesity, bilateral neck edema, diabetes mellitus, hypertension presented to the emergency department with complaints of lower abdominal pain. Pain was sharp, 10 out of 10 intensity, with no radiation, not alleviating or aggravating factors identified. Patient had bowel movement last night. Patient denied nausea, vomiting, diarrhea, constipation, fever, chills. Patient also complains shortness of breath on exertion, denied chest pain, palpitation that admitted for occasional cough productive of whitish sputum. Patient said he has chronic bilateral leg swelling but recently it is getting worse. There is a discharge from right leg. Patient said he was scheduled to see a wound doctor. Called this am by RT to report critical ABG which showed severe metabolic acidosis likely secondary to sepsis and lactic acidosis. CT of abdomen pelvis done but without contrast was negative. Reanl following as well. Past History Past Medical History: diabetes, hypertension, other (obesity, chronic lymphedema) Past Surgical History: Other (removal of skin cancer on his shoulder area) Social history: smoking (smoked 2 packs of cigarettes per day), full code. denies: alcohol abuse, prescription drug abuse, IV drug use Family history: no significant family history Medications and Allergies Allergies Allergy/AdvReac Type Severity Reaction Status Date / Time venom-honey bee AdvReac Shortness Verified 03/25/19 04:55 of Breath Active Meds: Active Medications Albuterol/Ipratropium (Duoneb *Not For Prn Use*) 1 ampul IH Q4HRT [facility] Last Admin: 03/25/19 11:13 Dose: 1 ampul Documented by: Arformoterol Tartrate (Brovana Nebu) 15 mcg IH Q12HRT [facility] Last Admin: 03/25/19 12:00 Dose: 15 mcg Documented by: Aspirin (Baby Aspirin) 162 mg PO QDAY ONE Stop: 03/26/19 11:45 Budesonide (Pulmicort) 0.5 mg IH Q12HRT [facility] Last Admin: 03/25/19 12:00 Dose: 0.5 mg Documented by: Dextrose (D50w (25gm) Syringe) 50 ml IV PRN PRN PRN Reason: Hypoglycemia Heparin Sodium (Porcine) (Heparin) 5,000 unit SUB-Q Q8HR [facility] Last Admin: 03/25/19 14:04 Dose: 5,000 unit Documented by: Dopamine HCl/Dextrose (Intropin Drip 800 Mg/D5w 250 Ml) 800 mg in 250 mls @ 5.475 mls/hr IV TITR ONE; Protocol Stop: 03/27/19 07:15 Last Titration: 03/25/19 13:16 Dose: 0 mcg/kg/min, 0 mls/hr Documented by: Cefepime HCl 0.5 gm/ Sodium (Chloride) 100 mls @ 200 mls/hr IV Q12HR [facility] Last Admin: 03/25/19 12:13 Dose: 200 mls/hr Documented by: Vasopressin 20 unit/ Sodium (Chloride) 101 mls @ 9.09 mls/hr IV TITR [facility]; Protocol Last Admin: 03/25/19 12:29 Dose: 0.03 units/min, 9.09 mls/hr Documented by: Sodium Bicarbonate 150 meq/ (Sterile Water) 1,150 mls @ 75 mls/hr IV DIRECT [facility] Last Admin: 03/25/19 14:04 Dose: 75 mls/hr Documented by: Insulin Human Lispro (Humalog) 0 unit SUB-Q ACHS [facility]; Protocol Review of Systems All systems: negative Physical Examination Vital signs: Vital Signs Temp Pulse Resp BP Pulse Ox 97.7 F 81 23 63/32 96 03/25/19 04:44 03/25/19 04:44 03/25/19 04:44 03/25/19 04:44 03/25/19 04:44 General appearance: appears uncomfortable, other (morbidly obese) Eyes: non-icteric ENT: oropharynx dry Neck: supple, other (extremely large in circumference) Effort: mildly labored Ascultation: Bilateral: diminished breath sounds Cardiovascular: irregular rhythm Gastrointestinal: hypoactive bowel sounds, non-tender Extremities: anasarca unable to assess Results - Laboratory Findings CBC and BMP: 03/26/19 05:35 03/26/19 05:35 ABG POC ABG pH 7.169 (7.35-7.45) L 03/25/19 11:06 POC ABG pCO2 43.7 (35-45) 03/25/19 11:06 POC ABG pO2 63 (80-105) L 03/25/19 11:06 POC ABG HCO3 15.9 (22-26 mml/L) 03/25/19 11:06 POC ABG Total CO2 17 (23-27mmol/L) 03/25/19 11:06 POC ABG O2 Sat 85 03/25/19 11:06 PT/INR, D-dimer PT 15.0 Sec. (12.2-14.9) H 03/25/19 07:14 INR 1.11 (0.87-1.13) 03/25/19 07:14 Abnormal lab findings: Abnormal Labs 03/25/19 03/25/19 03/25/19 05:20 05:20 05:20 WBC 25.2 H RBC 3.38 L Hgb 10.6 L Hct 31.5 L Plt Count 519 H Seg Neuts % (Manual) 80.0 H Lymphocytes % (Manual) 5.0 L Seg Neutrophils # Man 20.2 H Monocytes # (Manual) 1.8 H PT POC ABG pH POC ABG pO2 Sodium 156 H Potassium 5.4 H Chloride 117.6 H Carbon Dioxide 16 L BUN 99 H Creatinine 4.3 H Glucose 73 L POC Glucose Hemoglobin A1c Lactic Acid 4.00 H* AST 54 H Alkaline Phosphatase 185 H Total Creatine Kinase CK-MB (CK-2) CK-MB (CK-2) Rel Index NT-Pro-B Natriuret Pep Albumin 2.2 L Urine Creatinine 03/25/19 03/25/19 03/25/19 05:20 06:47 07:14 WBC RBC Hgb Hct Plt Count Seg Neuts % (Manual) Lymphocytes % (Manual) Seg Neutrophils # Man Monocytes # (Manual) PT 15.0 H POC ABG pH POC ABG pO2 Sodium Potassium Chloride Carbon Dioxide BUN Creatinine Glucose POC Glucose 109 H Hemoglobin A1c Lactic Acid AST Alkaline Phosphatase Total Creatine Kinase 773 H CK-MB (CK-2) 40.0 H CK-MB (CK-2) Rel Index 5.1 H NT-Pro-B Natriuret Pep 976.1 H Albumin Urine Creatinine 03/25/19 03/25/19 03/25/19 07:29 08:49 11:06 WBC RBC Hgb Hct Plt Count Seg Neuts % (Manual) Lymphocytes % (Manual) Seg Neutrophils # Man Monocytes # (Manual) PT POC ABG pH 7.270 L 7.169 L POC ABG pO2 65 L 63 L Sodium Potassium Chloride Carbon Dioxide BUN Creatinine Glucose POC Glucose Hemoglobin A1c Lactic Acid 2.40 H* AST Alkaline Phosphatase Total Creatine Kinase CK-MB (CK-2) CK-MB (CK-2) Rel Index NT-Pro-B Natriuret Pep Albumin Urine Creatinine 03/25/19 03/25/19 12:58 14:45 WBC RBC Hgb Hct Plt Count Seg Neuts % (Manual) Lymphocytes % (Manual) Seg Neutrophils # Man Monocytes # (Manual) PT POC ABG pH POC ABG pO2 Sodium Potassium Chloride Carbon Dioxide BUN Creatinine Glucose POC Glucose Hemoglobin A1c 6.4 H Lactic Acid AST Alkaline Phosphatase Total Creatine Kinase CK-MB (CK-2) CK-MB (CK-2) Rel Index NT-Pro-B Natriuret Pep Albumin Urine Creatinine 69.5 H - Diagnostic Findings Chest x-ray: image reviewed Assessment and Plan 63 y/o morbidly obese male with septic shock, severe metabolic acidosis and worsening renal failure. 1. Given 2 more amps of NaHCO3. Renal about to see, may require bicarb drip. I changed dopamine to vasopressin and BP has been stable. Suspect patient is severely volume deplete given Na of 156 on admit. Continue fluid resuscitation. May need HD 2. At this point it does not appears the patient requires intubation 3. Broad spec abx therapy. CCT 31 minutes.
[2019-03-25 15:50] LABS: Calcium 7.4 mg/dL (8.4-10.2)
[2019-03-25] MEDS ORDERED: PROVENTIL IH STA (16:08)
[2019-03-25] MEDS ORDERED: HumaLOG SUB-Q SCH (16:30)
[2019-03-25] MEDS: SODIUM BICARBONATE 150 MEQ in STERILE WATER 1,000 ML IV SCH ×2 (16:56→23:04)
[2019-03-25] MEDS ORDERED: CALCIUM GLUCONATE 2,000 MG in NACL 0.9% 100 ML IV ONE (17:00)
[2019-03-25] MEDS ORDERED: DUONEB *Not for PRN Use IH ONE ×2 (17:01→20:50)
[2019-03-25] MEDS ORDERED: HumuLIN R ONE (17:03)
[2019-03-25] MEDS ORDERED: DIPRIVAN 10 MG/ML 1,000 MG/100 ML BOTTLE IV ONE (18:07)
[2019-03-25] MEDS ORDERED: LEVOPHED DRIP 4 MG/NS 250 ML 4 MG/250 ML BAG IV ONE (18:07)
[2019-03-25] MEDS: DIPRIVAN 10 MG/ML 1,000 MG/100 ML BOTTLE IV SCH (18:12)
[2019-03-25] MEDS: LEVOPHED DRIP 4 MG/NS 250 ML 4 MG/250 ML BAG IV SCH (18:15)
[2019-03-25] MEDS ORDERED: AMIDATE IV ONE (18:19)
[2019-03-25] MEDS ORDERED: ZEMURON IV ONE (18:20)
[2019-03-25] MEDS ORDERED: ARTIFICIAL TEARS OPHTH OINT OU PRN (18:31)
[2019-03-25] MEDS ORDERED: VASELINE LIP THERAPY TP PRN (18:31)
--- NOTE | 2019-03-25 18:38 | Event Note ---
Date: 03/25/19 I received a call from Dr. Tanner, burn out tender lace, asking if I can intubate Mr. Pierce due to persistent hypoxia. Mr. Pierce is a 63 years old male admitted for sepsis. Patient on BiPAP but his oxygen saturation remained in the mid 80s percent. Patient in need of emergency intubation. Using a drug assisted intubation , Patient intubated by me using a glidoscope. A 7.5 endotracheal tube passed through the vocal cord with no difficulties. There is an immediate color change. Good breath sounds on both sides. Chest x-ray order to confirm the tube. Patient tolerated the procedure very well was no complication. Chest x-ray showed a endotracheal tube in a satisfactory position.
--- NOTE | 2019-03-25 19:35 | XRay Report ---
PROCEDURE: XR CHEST 1V AP TECHNIQUE: Chest radiograph single view. HISTORY: ETT placement COMPARISONS: CXR 03/25/2019 at 5:18 AM . FINDINGS: Heart: Heart is enlarged but stable. Mediastinum/Vessels: Normal. Lungs/Pleural space: Normal. Bony thorax: No acute osseous abnormality. Life support devices: Endotracheal tube terminates 4.5 cm above the alison.. IMPRESSION: No acute cardiopulmonary abnormality. Satisfactory ET tube placement. Stable cardiomegal y This document is electronically signed by Quin Clifford MD., March 25 2019 07:33:02 PM ET
[2019-03-25 20:14] LABS: Albumin 1.6 g/dL (3.9-5); Calcium 7.5 mg/dL (8.4-10.2)
[2019-03-25] MEDS ORDERED: KIONEX PR ONE (23:00)
[2019-03-26] MEDS: MAXIPIME 0.5 GM in NACL 0.9% 100 ML IV SCH ×3 (00:51→21:56)
[2019-03-26] MEDS: HEPARIN SUB-Q SCH ×4 (00:53→21:56)
--- NOTE | 2019-03-26 01:47 | XRay Report ---
PROCEDURE: XR ABDOMEN 1V AP TECHNIQUE: Abdominal radiograph, single view. HISTORY: Dobbhoff placement COMPARISONS: None . FINDINGS: Bowel gas pattern: Nonobstructive . Masses or calcifications: None . Bony structures: No significant abnormality . Other: NG tube is in the upper abdomen which could be at the gastroesophageal junction or in the fun dus of the stomach. . IMPRESSION: Normal bowel gas pattern.. NG tube is in the upper abdomen which could be at the gastroesophageal evangelina ction or in the fundus of the stomach. . This document is electronically signed by Janes Yates MD., March 26 2019 01:45:40 AM ET
[2019-03-26] MEDS: DUONEB *Not for PRN Use IH SCH ×4 (01:54→19:44)
--- NOTE | 2019-03-26 02:41 | XRay Report ---
PROCEDURE: XR ABDOMEN 1V AP TECHNIQUE: Abdominal radiograph, single view. HISTORY: dobhoff placement COMPARISONS: None . FINDINGS: Bowel gas pattern: Nonobstructive . Masses or calcifications: None . Bony structures: No significant abnormality . Other: The feeding tube ends in the distal stomach . IMPRESSION: The feeding tube ends in the distal stomach. This document is electronically signed by Brenda Stafford DO., March 26 2019 02:40:09 AM ET
[2019-03-26] MEDS: DIPRIVAN 10 MG/ML 1,000 MG/100 ML BOTTLE IV SCH ×2 (05:01→19:20)
[2019-03-26] MEDS ORDERED: INTROPIN DRIP 800 MG/D5W 250 ML 800 MG/250 ML BAG IV SCH (06:00)
[2019-03-26 06:12] LABS: Hematocrit 31.9 % (35.5-45.6); Hemoglobin 10.8 gm/dl (11.8-15.2); Mean Corpuscular HGB Conc 34 % (32-34); Mean Corpuscular Volume 93 fl (84-94); Platelet Count 528 K/mm3 (140-440); Red Blood Count 3.42 M/mm3 (3.65-5.03)
[2019-03-26] MEDS: LEVOPHED DRIP 4 MG/NS 250 ML 4 MG/250 ML BAG IV SCH ×2 (06:45→16:00)
[2019-03-26 06:47] LABS: Band Neutrophils # (Manual) 2.1 K/mm3; Basophils % (Manual) 0 % (0.0-1.8); Eosinophils % (Manual) 0 % (0.0-4.3); Total Cells Counted 100
[2019-03-26 06:48] LABS: Large Platelets 1+; Platelet Estimate Appears Increased; RBC Morphology Normal
[2019-03-26] MEDS: SODIUM BICARBONATE 150 MEQ in STERILE WATER 1,000 ML IV SCH (06:50)
[2019-03-26] MEDS: Vasostrict 20 UNIT in NACL 0.9% 100 ML IV SCH ×2 (07:46→18:14)
[2019-03-26] MEDS: HumaLOG SUB-Q SCH ×3 (07:59→18:18)
--- NOTE | 2019-03-26 08:19 | Progress Note ---
Assessment and Plan 63 y/o morbidly obese male with septic shock, severe metabolic acidosis and worsening renal failure. 1. increased rate on bicarb drip to 150. Increase RR to 24. PEAK pressures in the high 20's. Likely needs HD to fix acidemia, cannot do it all with vent changes. 2. Wean Diprovan for RASS of 0. Will need triglycerides in 48 hours. 3. Broad spec abx therapy. 4. Follow up renal recs, thinking her will need HD 5. Overall prognosis is guarded to poor. CCT 31 minutes. Subjective Date of service: 03/26/19 Interval history: patient required intubation yesterday evening. Even after several fluid boluses BUN and CR continue to rise. Made about 450 per nursing last night during their shift. Currently on Vaso, Dopamine and Levo. Patient is very sensitive to dopamine. No family present at bedside. Objective Vital Signs - 12hr 03/25/19 03/25/19 03/25/19 20:00 20:15 20:30 Temperature Pulse Rate 106 H 106 H 106 H Pulse Rate [ Anterior Bilateral] Respiratory 19 20 20 Rate Respiratory Rate [Anterior Bilateral] Blood Pressure 92/38 97/44 95/40 O2 Sat by Pulse 94 94 92 Oximetry 03/25/19 03/25/19 03/25/19 20:45 20:50 21:00 Temperature Pulse Rate 106 H 105 H Pulse Rate [ 104 H Anterior Bilateral] Respiratory 20 15 Rate Respiratory 20 Rate [Anterior Bilateral] Blood Pressure 101/47 96/49 O2 Sat by Pulse 93 93 Oximetry 03/25/19 03/25/19 03/25/19 21:01 21:05 21:15 Temperature Pulse Rate 105 H Pulse Rate [ 106 H Anterior Bilateral] Respiratory 21 Rate Respiratory 20 Rate [Anterior Bilateral] Blood Pressure 93/46 O2 Sat by Pulse 100 98 Oximetry 03/25/19 03/25/19 03/25/19 21:30 21:52 22:00 Temperature 97.1 F L Pulse Rate 104 H Pulse Rate [ Anterior Bilateral] Respiratory 19 Rate Respiratory Rate [Anterior Bilateral] Blood Pressure 97/52 103/61 O2 Sat by Pulse 93 Oximetry 03/25/19 03/25/19 03/25/19 22:19 22:30 22:45 Temperature Pulse Rate 115 H 109 H 111 H Pulse Rate [ Anterior Bilateral] Respiratory 24 20 21 Rate Respiratory Rate [Anterior Bilateral] Blood Pressure 110/60 99/28 96/55 O2 Sat by Pulse 88 87 92 Oximetry 03/25/19 03/25/19 03/25/19 23:00 23:16 23:30 Temperature Pulse Rate 108 H 106 H 103 H Pulse Rate [ Anterior Bilateral] Respiratory 18 19 20 Rate Respiratory Rate [Anterior Bilateral] Blood Pressure 108/44 96/62 108/25 O2 Sat by Pulse Oximetry 03/25/19 03/25/19 03/26/19 23:32 23:45 00:00 Temperature 97.8 F Pulse Rate 103 H 102 H 101 H Pulse Rate [ Anterior Bilateral] Respiratory 18 21 Rate Respiratory Rate [Anterior Bilateral] Blood Pressure 108/25 105/56 97/67 O2 Sat by Pulse 93 90 88 Oximetry 03/26/19 03/26/19 03/26/19 00:15 00:30 00:45 Temperature Pulse Rate 101 H 101 H 104 H Pulse Rate [ Anterior Bilateral] Respiratory 14 22 20 Rate Respiratory Rate [Anterior Bilateral] Blood Pressure 111/45 114/54 110/54 O2 Sat by Pulse 89 93 93 Oximetry 03/26/19 03/26/19 03/26/19 01:00 01:15 01:30 Temperature Pulse Rate 107 H 111 H 109 H Pulse Rate [ Anterior Bilateral] Respiratory 26 H 19 19 Rate Respiratory Rate [Anterior Bilateral] Blood Pressure 110/54 117/51 108/45 O2 Sat by Pulse 80 L 85 90 Oximetry 03/26/19 03/26/19 03/26/19 01:45 01:55 02:00 Temperature Pulse Rate 108 H 112 H Pulse Rate [ 113 H Anterior Bilateral] Respiratory 17 19 Rate Respiratory 22 Rate [Anterior Bilateral] Blood Pressure 94/55 100/47 O2 Sat by Pulse 68 L 95 Oximetry 03/26/19 03/26/19 03/26/19 02:11 02:16 02:30 Temperature Pulse Rate 103 H 105 H Pulse Rate [ 104 H Anterior Bilateral] Respiratory 18 20 Rate Respiratory 21 Rate [Anterior Bilateral] Blood Pressure 98/52 102/56 O2 Sat by Pulse 96 94 Oximetry 03/26/19 03/26/19 03/26/19 02:45 03:00 03:15 Temperature Pulse Rate 114 H 112 H 105 H Pulse Rate [ Anterior Bilateral] Respiratory 21 19 19 Rate Respiratory Rate [Anterior Bilateral] Blood Pressure 119/72 101/58 88/43 O2 Sat by Pulse 85 89 90 Oximetry 03/26/19 03/26/19 03/26/19 03:30 03:42 03:45 Temperature Pulse Rate 107 H 104 H 105 H Pulse Rate [ Anterior Bilateral] Respiratory 20 21 Rate Respiratory Rate [Anterior Bilateral] Blood Pressure 88/43 78/54 100/46 O2 Sat by Pulse 91 93 94 Oximetry 03/26/19 03/26/19 03/26/19 04:00 04:15 04:30 Temperature Pulse Rate 108 H 105 H 109 H Pulse Rate [ Anterior Bilateral] Respiratory 24 21 23 Rate Respiratory Rate [Anterior Bilateral] Blood Pressure 108/51 105/51 117/69 O2 Sat by Pulse 87 93 89 Oximetry 03/26/19 03/26/19 03/26/19 04:45 05:00 05:15 Temperature Pulse Rate 111 H 108 H 106 H Pulse Rate [ Anterior Bilateral] Respiratory 27 H 24 24 Rate Respiratory Rate [Anterior Bilateral] Blood Pressure 109/67 106/61 91/55 O2 Sat by Pulse 88 88 89 Oximetry 03/26/19 03/26/19 03/26/19 05:30 05:46 06:00 Temperature Pulse Rate 103 H 102 H 102 H Pulse Rate [ Anterior Bilateral] Respiratory 24 17 27 H Rate Respiratory Rate [Anterior Bilateral] Blood Pressure 101/45 96/25 86/55 O2 Sat by Pulse 93 87 92 Oximetry 03/26/19 03/26/19 06:15 06:30 Temperature Pulse Rate 100 H 101 H Pulse Rate [ Anterior Bilateral] Respiratory 21 23 Rate Respiratory Rate [Anterior Bilateral] Blood Pressure 99/51 104/57 O2 Sat by Pulse 92 93 Oximetry Constitutional: appears uncomfortable, other (morbidly obese) Eyes: non-icteric ENT: oropharynx dry Neck: supple, other (extremely large in circumference) Effort: mildly labored Ascultation: Bilateral: diminished breath sounds Cardiovascular: irregular rhythm Gastrointestinal: hypoactive bowel sounds, non-tender Extremities: anasarca Neurologic: unable to assess CBC and BMP: 03/26/19 05:35 03/26/19 05:35 ABG, PT/INR, D-dimer: ABG POC ABG pH 7.183 (7.35-7.45) L 03/26/19 04:41 POC ABG pCO2 56.9 (35-45) H 03/26/19 04:41 POC ABG pO2 77 (80-105) L 03/26/19 04:41 POC ABG HCO3 21.4 (22-26 mml/L) 03/26/19 04:41 POC ABG Total CO2 23 (23-27mmol/L) 03/26/19 04:41 POC ABG O2 Sat 91 03/26/19 04:41 PT/INR, D-dimer PT 15.0 Sec. (12.2-14.9) H 03/25/19 07:14 INR 1.11 (0.87-1.13) 03/25/19 07:14 Abnormal lab findings: Abnormal Labs 03/25/19 03/25/19 03/25/19 05:20 05:20 05:20 WBC 25.2 H RBC 3.38 L Hgb 10.6 L Hct 31.5 L Plt Count 519 H Seg Neuts % (Manual) 80.0 H Lymphocytes % (Manual) 5.0 L Seg Neutrophils # Man 20.2 H Lymphocytes # (Manual) Monocytes # (Manual) 1.8 H PT POC ABG pH POC ABG pCO2 POC ABG pO2 Sodium 156 H Potassium 5.4 H Chloride 117.6 H Carbon Dioxide 16 L BUN 99 H Creatinine 4.3 H Glucose 73 L POC Glucose Hemoglobin A1c Lactic Acid 4.00 H* Calcium AST 54 H Alkaline Phosphatase 185 H Total Creatine Kinase CK-MB (CK-2) CK-MB (CK-2) Rel Index NT-Pro-B Natriuret Pep Total Protein Albumin 2.2 L Urine Creatinine 03/25/19 03/25/19 03/25/19 05:20 06:47 07:14 WBC RBC Hgb Hct Plt Count Seg Neuts % (Manual) Lymphocytes % (Manual) Seg Neutrophils # Man Lymphocytes # (Manual) Monocytes # (Manual) PT 15.0 H POC ABG pH POC ABG pCO2 POC ABG pO2 Sodium Potassium Chloride Carbon Dioxide BUN Creatinine Glucose POC Glucose 109 H Hemoglobin A1c Lactic Acid Calcium AST Alkaline Phosphatase Total Creatine Kinase 773 H CK-MB (CK-2) 40.0 H CK-MB (CK-2) Rel Index 5.1 H NT-Pro-B Natriuret Pep 976.1 H Total Protein Albumin Urine Creatinine 03/25/19 03/25/19 03/25/19 07:29 08:49 11:06 WBC RBC Hgb Hct Plt Count Seg Neuts % (Manual) Lymphocytes % (Manual) Seg Neutrophils # Man Lymphocytes # (Manual) Monocytes # (Manual) PT POC ABG pH 7.270 L 7.169 L POC ABG pCO2 POC ABG pO2 65 L 63 L Sodium Potassium Chloride Carbon Dioxide BUN Creatinine Glucose POC Glucose Hemoglobin A1c Lactic Acid 2.40 H* Calcium AST Alkaline Phosphatase Total Creatine Kinase CK-MB (CK-2) CK-MB (CK-2) Rel Index NT-Pro-B Natriuret Pep Total Protein Albumin Urine Creatinine 03/25/19 03/25/19 03/25/19 12:58 14:45 15:14 WBC RBC Hgb Hct Plt Count Seg Neuts % (Manual) Lymphocytes % (Manual) Seg Neutrophils # Man Lymphocytes # (Manual) Monocytes # (Manual) PT POC ABG pH POC ABG pCO2 POC ABG pO2 Sodium 136 L D Potassium 5.5 H Chloride Carbon Dioxide 17 L BUN 97 H Creatinine 4.4 H Glucose 122 H POC Glucose Hemoglobin A1c 6.4 H Lactic Acid Calcium 7.4 L D AST Alkaline Phosphatase Total Creatine Kinase CK-MB (CK-2) CK-MB (CK-2) Rel Index NT-Pro-B Natriuret Pep Total Protein Albumin Urine Creatinine 69.5 H 03/25/19 03/25/19 03/25/19 19:23 23:17 23:27 WBC RBC Hgb Hct Plt Count Seg Neuts % (Manual) Lymphocytes % (Manual) Seg Neutrophils # Man Lymphocytes # (Manual) Monocytes # (Manual) PT POC ABG pH 7.147 L POC ABG pCO2 51.8 H POC ABG pO2 76 L Sodium Potassium 5.6 H Chloride Carbon Dioxide 18 L BUN 95 H Creatinine 3.9 H Glucose 135 H POC Glucose 192 H Hemoglobin A1c Lactic Acid Calcium 7.5 L AST 93 H Alkaline Phosphatase 144 H Total Creatine Kinase CK-MB (CK-2) CK-MB (CK-2) Rel Index NT-Pro-B Natriuret Pep Total Protein 6.2 L Albumin 1.6 L Urine Creatinine 03/26/19 03/26/19 03/26/19 04:41 05:35 05:35 WBC 15.3 H RBC 3.42 L Hgb 10.8 L Hct 31.9 L Plt Count 528 H Seg Neuts % (Manual) 81.0 H Lymphocytes % (Manual) 3.0 L Seg Neutrophils # Man 12.4 H Lymphocytes # (Manual) 0.5 L Monocytes # (Manual) PT POC ABG pH 7.183 L POC ABG pCO2 56.9 H POC ABG pO2 77 L Sodium 136 L Potassium 5.9 H Chloride 97.5 L Carbon Dioxide 20 L BUN 100 H Creatinine 4.8 H Glucose 169 H POC Glucose Hemoglobin A1c Lactic Acid Calcium 7.0 L AST Alkaline Phosphatase Total Creatine Kinase CK-MB (CK-2) CK-MB (CK-2) Rel Index NT-Pro-B Natriuret Pep Total Protein Albumin Urine Creatinine 03/26/19 07:41 WBC RBC Hgb Hct Plt Count Seg Neuts % (Manual) Lymphocytes % (Manual) Seg Neutrophils # Man Lymphocytes # (Manual) Monocytes # (Manual) PT POC ABG pH POC ABG pCO2 POC ABG pO2 Sodium Potassium Chloride Carbon Dioxide BUN Creatinine Glucose POC Glucose 172 H Hemoglobin A1c Lactic Acid Calcium AST Alkaline Phosphatase Total Creatine Kinase CK-MB (CK-2) CK-MB (CK-2) Rel Index NT-Pro-B Natriuret Pep Total Protein Albumin Urine Creatinine
[2019-03-26] MEDS ORDERED: HumuLIN R IV ONE ×3 (08:31→22:23)
[2019-03-26] MEDS ORDERED: D50W (25GM) Syringe IV ONE ×3 (08:31→22:23)
[2019-03-26] MEDS ORDERED: CALCIUM GLUCONATE 2,000 MG in NACL 0.9% 100 ML IV ONE ×2 (08:31→22:23)
[2019-03-26] MEDS ORDERED: PROVENTIL IH STA (08:31)
[2019-03-26] MEDS: PULMICORT IH SCH ×2 (08:46→19:44)
[2019-03-26] MEDS: BROVANA NEBU IH SCH ×2 (08:47→19:44)
[2019-03-26] MEDS: SODIUM BICARBONATE 150 MEQ in D5W 1,000 ML IV SCH ×2 (09:26→18:17)
[2019-03-26] MEDS: KIONEX PO SCH ×2 (09:26→16:57)
[2019-03-26] MEDS ORDERED: BABY ASPIRIN PO ONE (11:44)
--- NOTE | 2019-03-26 11:59 | Progress Note ---
Assessment and Plan Assessment and plan: Abdominal pain History of present illness: Patient is poor historian 63-year-old male with past medical history significant for morbid obesity, bilateral neck edema, diabetes mellitus, hypertension presented to the emergency department with complaints of lower abdominal pain. Pain was sharp, 10 out of 10 intensity, with no radiation, not alleviating or aggravating f actors identified. Patient had bowel movement last night. Patient denied nausea, vomiting, diarrhea, constipation, fever, chills. Patient also complains shortness of breath on exertion, denied chest pain, palpitation that admitted for occasional cough productive of whitish sputum. Patient said he has chronic bilateral leg swelling but recently it is getting worse. There is a discharge from right leg. Patient said he was scheduled to see a wound doctor. In the emergency department patient was in septic shock, acute renal failure, lactic acidosis, respiratory failure and A. fib with RVR. Patient will be admitted to ICU for further evaluation and management. 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 acute respiratory failure on MV > 96 hours Septic shock/ severe sepsis, source could be likely right leg wound vs intra- abdominal source IV abx, pressors, ID on board Metabolic acidosis cont bicarb ggt Right leg wound, R leg cellulitis? abscess, -had increased drainage per his - Wound care consulted, GS consulted, vascular consulted Acute renal failure, likely ATN cont pressors and ivf Hypernatremia - Likely due to dehydration, cont free water replacement Abdominal pain - CT abdomen and pelvis is negative - Symptomatic management -DW dr ruelas, there is some free air, KUB is wnl, need repeat CT A/P Diabetes mellitus - Sliding-scale insulin, Accu-Chek, ADA diet Alcohol abuse CIWA protocol COPD exacerbation mgt per pulmonology DVT prophylaxis - Heparin The high probability of a clinically significant, sudden or life threatening deterioration of the [CV, renal] system(s) required my full and direct attention, intervention and personal management. The aggregate critical care time was [] minutes. This time is in addition to time spent performing reported procedures but includes the following: [x] Data Review and interpretation [x] Patient assessment and monitoring of vital signs [x] Documentation [x] Medication orders and management History Interval history: Patient had fever MAXIMUM TEMPERATURE of 100.5 No vomiting Continues to be vent dependent, continues to be tachycardic No seizures Hospitalist Physical - Physical exam Narrative exam: General.: Appears ill, toxic appearance, intubated HEENT: Moist mucous membranes, extraocular muscles intact, no lymphadenopathy Neck: supple Cardiac: S1-S2 heard Lungs: Decreased air entry Abdomen: soft , nontender, nondistended, bowel sounds positive Extremities: Bilateral lower extremity lymphedema, there is a necrotic wound on the right lateral leg which is draining some foul-smelling mucopurulent drainage Skin: No rash Neurologic: no gross focal deficits Psych: calm, and cooperative - Constitutional Vitals: Temp Pulse Resp BP Pulse Ox 97.7 F 108 H 22 101/54 90 03/26/19 08:00 03/26/19 11:30 03/26/19 11:30 03/26/19 11:30 03/26/19 11:30 Results - Labs CBC & Chem 7: 03/26/19 05:35 03/27/19 19:30 Labs: Laboratory Last Values WBC 15.3 K/mm3 (4.5-11.0) H 03/26/19 05:35 RBC 3.42 M/mm3 (3.65-5.03) L 03/26/19 05:35 Hgb 10.8 gm/dl (11.8-15.2) L 03/26/19 05:35 Hct 31.9 % (35.5-45.6) L 03/26/19 05:35 MCV 93 fl (84-94) 03/26/19 05:35 MCH 32 pg (28-32) 03/26/19 05:35 MCHC 34 % (32-34) 03/26/19 05:35 RDW 15.0 % (13.2-15.2) 03/26/19 05:35 Plt Count 528 K/mm3 (140-440) H 03/26/19 05:35 Lymph % (Auto) Media Services Coordinator 03/26/19 05:35 [place] % (Auto) Media Services Coordinator 03/26/19 05:35 Eos % (Auto) Media Services Coordinator 03/26/19 05:35 Baso % (Auto) Media Services Coordinator 03/26/19 05:35 Lymph # Media Services Coordinator 03/26/19 05:35 [place] # Media Services Coordinator 03/26/19 05:35 Eos # Media Services Coordinator 03/26/19 05:35 Baso # Media Services Coordinator 03/26/19 05:35 Add Manual Diff Complete 03/26/19 05:35 Total Counted 100 03/26/19 05:35 Seg Neutrophils % Media Services Coordinator 03/26/19 05:35 Seg Neuts % (Manual) 81.0 % (40.0-70.0) H 03/26/19 05:35 14.0 % 03/26/19 05:35 3.0 % (13.4-35.0) L 03/26/19 05:35 Reactive Lymphs % (Man) 0 % 03/26/19 05:35 2.0 % (0.0-7.3) 03/26/19 05:35 0 % (0.0-4.3) 03/26/19 05:35 0 % (0.0-1.8) 03/26/19 05:35 0 % 03/26/19 05:35 0 % 03/26/19 05:35 0 % 03/26/19 05:35 0 % 03/26/19 05:35 Nucleated RBC % Not Reportable 03/26/19 05:35 Seg Neutrophils # Media Services Coordinator 03/26/19 05:35 Seg Neutrophils # Man 12.4 K/mm3 (1.8-7.7) H 03/26/19 05:35 Band Neutrophils # 2.1 K/mm3 03/26/19 05:35 0.5 K/mm3 (1.2-5.4) L 03/26/19 05:35 Abs React Lymphs (Man) 0.0 K/mm3 03/26/19 05:35 0.3 K/mm3 (0.0-0.8) 03/26/19 05:35 0.0 K/mm3 (0.0-0.4) 03/26/19 05:35 0.0 K/mm3 (0.0-0.1) 03/26/19 05:35 0.0 K/mm3 03/26/19 05:35 0.0 K/mm3 03/26/19 05:35 0.0 K/mm3 03/26/19 05:35 Blast Cells # 0.0 K/mm3 03/26/19 05:35 WBC Morphology Not Reportable 03/26/19 05:35 Hypersegmented Neuts Not Reportable 03/26/19 05:35 Hyposegmented Neuts Not Reportable 03/26/19 05:35 Hypogranular Neuts Not Reportable 03/26/19 05:35 Not Reportable 03/26/19 05:35 Not Reportable 03/26/19 05:35 Not Reportable 03/26/19 05:35 Not Reportable 03/26/19 05:35 Not Reportable 03/26/19 05:35 Not Reportable 03/26/19 05:35 Appears increased 03/26/19 05:35 Not Reportable 03/26/19 05:35 Plt Clumps, EDTA Not Reportable 03/26/19 05:35 1+ 03/26/19 05:35 Not Reportable 03/26/19 05:35 Not Reportable 03/26/19 05:35 Plt Morphology Comment Not Reportable 03/26/19 05:35 RBC Morphology Normal 03/26/19 05:35 Dimorphic RBCs Not Reportable 03/26/19 05:35 Not Reportable 03/26/19 05:35 Not Reportable 03/26/19 05:35 Not Reportable 03/26/19 05:35 Not Reportable 03/26/19 05:35 Not Reportable 03/26/19 05:35 Not Reportable 03/26/19 05:35 Not Reportable 03/26/19 05:35 Not Reportable 03/26/19 05:35 Not Reportable 03/26/19 05:35 Not Reportable 03/26/19 05:35 Not Reportable 03/26/19 05:35 Not Reportable 03/26/19 05:35 Not Reportable 03/26/19 05:35 Not Reportable 03/26/19 05:35 Not Reportable 03/26/19 05:35 Not Reportable 03/26/19 05:35 Not Reportable 03/26/19 05:35 Not Reportable 03/26/19 05:35 Not Reportable 03/26/19 05:35 Acanthocytes (Spur) Not Reportable 03/26/19 05:35 Rouleaux Not Reportable 03/26/19 05:35 Not Reportable 03/26/19 05:35 Not Reportable 03/26/19 05:35 Not Reportable 03/26/19 05:35 Not Reportable 03/26/19 05:35 Hem Pathologist Commnt No 03/26/19 05:35 PT 15.0 Sec. (12.2-14.9) H 03/25/19 07:14 INR 1.11 (0.87-1.13) 03/25/19 07:14 APTT 31.4 Sec. (24.2-36.6) 03/25/19 07:14 POC ABG pH 7.183 (7.35-7.45) L 03/26/19 04:41 POC ABG pCO2 56.9 (35-45) H 03/26/19 04:41 POC ABG pO2 77 (80-105) L 03/26/19 04:41 POC ABG HCO3 21.4 (22-26 mml/L) 03/26/19 04:41 POC ABG Total CO2 23 (23-27mmol/L) 03/26/19 04:41 POC ABG O2 Sat 91 03/26/19 04:41 POC ABG Base Excess -7 ((-2) - (+3)mmol/L) 03/26/19 04:41 100 % 03/26/19 04:41 Sodium 136 mmol/L (137-145) L 03/26/19 05:35 Potassium 5.9 mmol/L (3.6-5.0) H 03/26/19 05:35 Chloride 97.5 mmol/L (98-107) L 03/26/19 05:35 Carbon Dioxide 20 mmol/L (22-30) L 03/26/19 05:35 24 mmol/L 03/26/19 05:35 BUN 100 mg/dL (9-20) H 03/26/19 05:35 4.8 mg/dL (0.8-1.5) H 03/26/19 05:35 Estimated GFR 12 ml/min 03/26/19 05:35 21 % 03/26/19 05:35 Glucose 169 mg/dL (75-100) H 03/26/19 05:35 POC Glucose 172 (70-105) H 03/26/19 07:41 6.4 % (4-6) H 03/25/19 12:58 Lactic Acid 1.50 mmol/L (0.7-2.0) 03/25/19 12:58 Calcium 7.0 mg/dL (8.4-10.2) L 03/26/19 05:35 Magnesium 2.30 mg/dL (1.7-2.3) 03/25/19 05:20 0.30 mg/dL (0.1-1.2) 03/25/19 19:23 AST 93 units/L (5-40) H 03/25/19 19:23 ALT 42 units/L (7-56) 03/25/19 19:23 144 units/L (35-129) H 03/25/19 19:23 773 units/L (55-170) H 03/25/19 05:20 CK-MB (CK-2) 40.0 ng/mL (0.0-4.0) H 03/25/19 05:20 CK-MB (CK-2) Rel Index 5.1 (0-4) H 03/25/19 05:20 < 0.010 ng/mL (0.00-0.029) 03/25/19 05:20 NT-Pro-B Natriuret Pep 976.1 pg/mL (0-900) H 03/25/19 05:20 6.2 g/dL (6.3-8.2) L 03/25/19 19:23 1.6 g/dL (3.9-5) L 03/25/19 19:23 0.3 % 03/25/19 19:23 36 units/L (13-60) 03/25/19 05:20 Yellow (Yellow) 03/25/19 14:45 Clear (Clear) 03/25/19 14:45 5.0 (5.0-7.0) 03/25/19 14:45 Ur Specific [place] 1.013 (1.003-1.030) 03/25/19 14:45 <15 mg/dl mg/dL (Negative) 03/25/19 14:45 Neg mg/dL (Negative) 03/25/19 14:45 Neg mg/dL (Negative) 03/25/19 14:45 Sm (Negative) 03/25/19 14:45 Neg (Negative) 03/25/19 14:45 Neg (Negative) 03/25/19 14:45 2.0 mg/dL (<2.0) 03/25/19 14:45 Ur Leukocyte Esterase Neg (Negative) 03/25/19 14:45 < 1.0 /HPF (0.0-6.0) 03/25/19 14:45 9.0 /HPF (0.0-6.0) 03/25/19 14:45 U Epithel Cells (Auto) 1.0 /HPF (0-13.0) 03/25/19 14:45 Hyaline Casts 6 /LPF 03/25/19 14:45 Few /HPF 03/25/19 14:45 69.5 mg/dL (0.1-20.0) H 03/25/19 14:45 52 mmol/L 03/25/19 14:45 Blood Type O POSITIVE 03/25/19 08:54 Antibody Screen Negative 03/25/19 08:54 Active Medications - Current Medications Current Medications: Generic Name Dose Route Start Last Admin Trade Name Freq PRN Reason Stop Dose Admin Albuterol/Ipratropium 1 ampul 03/26/19 02:00 03/26/19 08:46 Duoneb *Not For Prn Use* IH 1 ampul Q6HRT GIO Administration Arformoterol Tartrate 15 mcg 03/25/19 12:45 03/26/19 08:47 Brovana Nebu IH 15 mcg Q12HRT GIO Administration Budesonide 0.5 mg 03/25/19 12:45 03/26/19 08:46 Pulmicort IH 0.5 mg Q12HRT GIO Administration Dextrose 50 ml 03/25/19 12:07 D50w (25gm) Syringe IV PRN PRN Hypoglycemia Heparin Sodium (Porcine) 5,000 unit 03/25/19 14:00 03/26/19 07:57 Heparin SUB-Q 5,000 unit Q8HR GIO Administration Hydrophilic Ointment 1 applic 03/25/19 18:31 Vaseline Lip Therapy TP Q2HR PRN Dry Lips Cefepime HCl 0.5 gm/ Sodium 100 mls @ 200 mls/hr 03/25/19 10:00 03/26/19 10:07 Chloride IV 200 mls/hr Q12HR GIO Administration Vasopressin 20 unit/ Sodium 101 mls @ 9.09 mls/hr 03/25/19 12:00 03/26/19 07:46 Chloride IV 0.03 units/min TITR GIO 9.09 mls/hr Administration Protocol 0.03 UNITS/MIN Norepinephrine 4 mg in 250 mls @ 7.5 mls/hr 03/25/19 18:27 03/26/19 11:30 Levophed Drip 4 Mg/Ns 250 Ml IV 6 mcg/min TITR GIO 22.5 mls/hr Titration Protocol 2 MCG/MIN Propofol 1,000 mg in 100 mls @ 4.38 mls/hr 03/25/19 19:00 03/26/19 10:15 Diprivan 10 Mg/Ml IV 5 mcg/kg/min TITR GIO 4.38 mls/hr Titration Protocol 5 MCG/KG/MIN Dopamine HCl/Dextrose 800 mg in 250 mls @ 5.475 mls/hr 03/26/19 06:00 03/26/19 10:05 Intropin Drip 800 Mg/D5w 250 Ml IV 0 mcg/kg/min TITR GIO 0 mls/hr Titration Protocol 2 MCG/KG/MIN Sodium Bicarbonate 150 meq/ 1,150 mls @ 125 mls/hr 03/26/19 09:00 03/26/19 09:26 Dextrose IV 125 mls/hr DIRECT GIO Administration Insulin Human Lispro 0 unit 03/26/19 07:00 03/26/19 07:59 Humalog SUB-Q 1 unit Q6HR GIO Administration Protocol Multi-Ingred Cream/Lotion/Oil/Oint 1 applic 03/25/19 18:31 Artificial Tears Ophth Oint OU Q4HR PRN Dry Eye(s) Sodium Polystyrene Sulfonate 30 gm 03/26/19 09:00 03/26/19 09:26 Kionex PO 03/26/19 12:01 30 gm Q6HR GIO Administration
--- NOTE | 2019-03-26 12:03 | Progress Note ---
Assessment and Plan 1. Acute kidney injury: Vasomotor KAIDEN in the setting of hypotension / shock. CT abdomen was negative for hydro. Renal function continue to decline. Continue IV fluids. Renal prognosis is guarded. Avoid nephrotoxic agents. Meds dosage based on GFR. D/w patient's and son regarding treatment options for hyperkalemia. Patient would not tolerate hemodialysis at this point due to severe hypotension / shock requiring 2 different pressors. They gave permission for dialysis if needed. Monitor for CVIR TECH needs. 2. FEN: Hyperkalemia, continue Insulin-dextrose, IV Calcium and Albuterol. Anion gap MA in the setting of lactic acidosis and KAIDEN. Continue Bicarb drip. Hypernatremia, improved. Monitor lytes. 3. Septic shock: On Levophed and Vasopressin. 4. Respiratory failure: On vent. H/o COPD. 5. Diabetic LE infection. 6. Anemia: POA. 7. DM type 2. 8. A.fib: SR now. Subjective Date of service: 03/26/19 Interval history: Patient was seen and examined at the bedside. and son at the bedside. Objective - Vital Signs Vital signs: Vital Signs - 12hr 03/26/19 03/26/19 03/26/19 00:15 00:30 00:45 Temperature Pulse Rate 101 H 101 H 104 H Pulse Rate [ Anterior Bilateral] Pulse Rate [ From Monitor] Respiratory 14 22 20 Rate Respiratory Rate [Anterior Bilateral] Blood Pressure 111/45 114/54 110/54 O2 Sat by Pulse 89 93 93 Oximetry 03/26/19 03/26/19 03/26/19 01:00 01:15 01:30 Temperature Pulse Rate 107 H 111 H 109 H Pulse Rate [ Anterior Bilateral] Pulse Rate [ From Monitor] Respiratory 26 H 19 19 Rate Respiratory Rate [Anterior Bilateral] Blood Pressure 110/54 117/51 108/45 O2 Sat by Pulse 80 L 85 90 Oximetry 03/26/19 03/26/19 03/26/19 01:45 01:55 02:00 Temperature Pulse Rate 108 H 112 H Pulse Rate [ 113 H Anterior Bilateral] Pulse Rate [ 112 H From Monitor] Respiratory 17 19 Rate Respiratory 22 Rate [Anterior Bilateral] Blood Pressure 94/55 100/47 O2 Sat by Pulse 68 L 95 Oximetry 03/26/19 03/26/19 03/26/19 02:11 02:16 02:30 Temperature Pulse Rate 103 H 105 H Pulse Rate [ 104 H Anterior Bilateral] Pulse Rate [ From Monitor] Respiratory 18 20 Rate Respiratory 21 Rate [Anterior Bilateral] Blood Pressure 98/52 102/56 O2 Sat by Pulse 96 94 Oximetry 03/26/19 03/26/19 03/26/19 02:45 03:00 03:15 Temperature Pulse Rate 114 H 112 H 105 H Pulse Rate [ Anterior Bilateral] Pulse Rate [ From Monitor] Respiratory 21 19 19 Rate Respiratory Rate [Anterior Bilateral] Blood Pressure 119/72 101/58 88/43 O2 Sat by Pulse 85 89 90 Oximetry 03/26/19 03/26/19 03/26/19 03:30 03:42 03:45 Temperature Pulse Rate 107 H 104 H 105 H Pulse Rate [ Anterior Bilateral] Pulse Rate [ From Monitor] Respiratory 20 21 Rate Respiratory Rate [Anterior Bilateral] Blood Pressure 88/43 78/54 100/46 O2 Sat by Pulse 91 93 94 Oximetry 03/26/19 03/26/19 03/26/19 04:00 04:15 04:30 Temperature Pulse Rate 108 H 105 H 109 H Pulse Rate [ Anterior Bilateral] Pulse Rate [ From Monitor] Respiratory 24 21 23 Rate Respiratory Rate [Anterior Bilateral] Blood Pressure 108/51 105/51 117/69 O2 Sat by Pulse 87 93 89 Oximetry 03/26/19 03/26/19 03/26/19 04:45 05:00 05:15 Temperature 97.3 F L Pulse Rate 111 H 108 H 106 H Pulse Rate [ Anterior Bilateral] Pulse Rate [ From Monitor] Respiratory 27 H 24 24 Rate Respiratory Rate [Anterior Bilateral] Blood Pressure 109/67 106/61 91/55 O2 Sat by Pulse 88 88 89 Oximetry 03/26/19 03/26/19 03/26/19 05:30 05:46 06:00 Temperature Pulse Rate 103 H 102 H 102 H Pulse Rate [ Anterior Bilateral] Pulse Rate [ 102 H From Monitor] Respiratory 24 17 27 H Rate Respiratory Rate [Anterior Bilateral] Blood Pressure 101/45 96/25 86/55 O2 Sat by Pulse 93 87 92 Oximetry 03/26/19 03/26/19 03/26/19 06:15 06:30 06:45 Temperature Pulse Rate 100 H 101 H 101 H Pulse Rate [ Anterior Bilateral] Pulse Rate [ From Monitor] Respiratory 21 23 24 Rate Respiratory Rate [Anterior Bilateral] Blood Pressure 99/51 104/57 85/49 O2 Sat by Pulse 92 93 93 Oximetry 03/26/19 03/26/19 03/26/19 07:00 07:15 07:30 Temperature Pulse Rate 101 H 100 H 101 H Pulse Rate [ Anterior Bilateral] Pulse Rate [ From Monitor] Respiratory 26 H 21 24 Rate Respiratory Rate [Anterior Bilateral] Blood Pressure 106/53 94/29 94/53 O2 Sat by Pulse 93 94 92 Oximetry 03/26/19 03/26/19 03/26/19 07:46 08:00 08:16 Temperature 97.7 F Pulse Rate 109 H 101 H 103 H Pulse Rate [ Anterior Bilateral] Pulse Rate [ 101 H From Monitor] Respiratory 24 25 H 25 H Rate Respiratory Rate [Anterior Bilateral] Blood Pressure 76/52 97/49 104/41 O2 Sat by Pulse 91 93 91 Oximetry 03/26/19 03/26/19 03/26/19 08:22 08:30 08:35 Temperature Pulse Rate 103 H 105 H Pulse Rate [ 104 H 104 H Anterior Bilateral] Pulse Rate [ From Monitor] Respiratory 1 L 26 H Rate Respiratory 24 24 Rate [Anterior Bilateral] Blood Pressure 113/50 113/50 O2 Sat by Pulse 89 89 Oximetry 03/26/19 03/26/19 03/26/19 08:46 09:00 09:15 Temperature Pulse Rate 105 H 103 H 100 H Pulse Rate [ Anterior Bilateral] Pulse Rate [ From Monitor] Respiratory 24 24 24 Rate Respiratory Rate [Anterior Bilateral] Blood Pressure 108/73 105/61 112/58 O2 Sat by Pulse 90 90 91 Oximetry 03/26/19 03/26/19 03/26/19 09:30 09:45 10:00 Temperature Pulse Rate 102 H 109 H 114 H Pulse Rate [ Anterior Bilateral] Pulse Rate [ From Monitor] Respiratory 24 25 H 25 H Rate Respiratory Rate [Anterior Bilateral] Blood Pressure 106/55 106/51 116/58 O2 Sat by Pulse 91 89 89 Oximetry 03/26/19 03/26/19 03/26/19 10:15 10:30 10:46 Temperature Pulse Rate 113 H 115 H 115 H Pulse Rate [ Anterior Bilateral] Pulse Rate [ From Monitor] Respiratory 25 H 24 25 H Rate Respiratory Rate [Anterior Bilateral] Blood Pressure 123/56 126/66 115/61 O2 Sat by Pulse 90 91 89 Oximetry 06/09/19 06/09/19 06/09/19 11:00 11:15 11:30 Temperature Pulse Rate 111 H 112 H 108 H Pulse Rate [ Anterior Bilateral] Pulse Rate [ From Monitor] Respiratory 24 25 H 22 Rate Respiratory Rate [Anterior Bilateral] Blood Pressure 106/52 111/60 101/54 O2 Sat by Pulse 91 90 90 Oximetry - General Appearance General appearance: well-developed, well-nourished, appears stated age, obese, sedated on ventilator, intubated EENT: ATNC, PERRL Neck: supple Respiratory: Present: Clear to Ascultation Cardiology: regular, S1S2, no murmurs Gastrointestinal: no tenderness, obese, other (BS sluggish) Integumentary: erythema (both LEs) Neurologic: obtunded Musculoskeletal: other (1+ edema of both LEs noted) - Lab 03/26/19 05:35 03/26/19 21:24 Most recent lab results Calcium 7.0 mg/dL (8.4-10.2) L 03/26/19 05:35 Magnesium 2.30 mg/dL (1.7-2.3) 03/25/19 05:20 69.5 mg/dL (0.1-20.0) H 03/25/19 14:45 52 mmol/L 03/25/19 14:45 Medications & Allergies - Medications Allergies/Adverse Reactions: Allergies venom-honey bee Adverse Reaction (Verified 03/25/19 04:55) Shortness of Breath Home Medications: Home Medications Medication Instructions Recorded Confirmed Last Taken Type Bactrim 400-80 mg Tablet 2 tab PO BID 03/26/19 03/26/19 03/23/19 History Etodolac 500 mg PO BID 03/26/19 03/26/19 03/23/19 10:00 History Gabapentin [Neurontin] 300 mg PO BID 03/26/19 03/26/19 03/23/19 10:00 History Lisinopril 03/26/19 03/24/19 10:00 History metFORMIN 03/26/19 03/24/19 History predniSONE [Deltasone] 40 mg PO QDAY 03/26/19 03/26/19 03/23/19 10:00 History Active Medications: Generic Name Dose Route Start Last Admin Trade Name Freq PRN Reason Stop Dose Admin Albuterol/Ipratropium 1 ampul 03/26/19 02:00 03/26/19 08:46 Duoneb *Not For Prn Use* IH 1 ampul Q6HRT GIO Administration Arformoterol Tartrate 15 mcg 03/25/19 12:45 03/26/19 08:47 Brojuhi Nebu IH 15 mcg Q12HRT GIO Administration Budesonide 0.5 mg 03/25/19 12:45 03/26/19 08:46 Pulmicort IH 0.5 mg Q12HRT GIO Administration Dextrose 50 ml 03/25/19 12:07 D50w (25gm) Syringe IV PRN PRN Hypoglycemia Heparin Sodium (Porcine) 5,000 unit 03/25/19 14:00 03/26/19 07:57 Heparin SUB-Q 5,000 unit Q8HR GIO Administration Hydrophilic Ointment 1 applic 03/25/19 18:31 Vaseline Lip Therapy TP Q2HR PRN Dry Lips Cefepime HCl 0.5 gm/ Sodium 100 mls @ 200 mls/hr 03/25/19 10:00 03/26/19 10:07 Chloride IV 200 mls/hr Q12HR GIO Administration Vasopressin 20 unit/ Sodium 101 mls @ 9.09 mls/hr 03/25/19 12:00 03/26/19 07:46 Chloride IV 0.03 units/min TITR GIO 9.09 mls/hr Administration Protocol 0.03 UNITS/MIN Norepinephrine 4 mg in 250 mls @ 7.5 mls/hr 03/25/19 18:27 03/26/19 11:30 Levophed Drip 4 Mg/Ns 250 Ml IV 6 mcg/min TITR GIO 22.5 mls/hr Titration Protocol 2 MCG/MIN Propofol 1,000 mg in 100 mls @ 4.38 mls/hr 03/25/19 19:00 03/26/19 10:15 Diprivan 10 Mg/Ml IV 5 mcg/kg/min TITR GIO 4.38 mls/hr Titration Protocol 5 MCG/KG/MIN Dopamine HCl/Dextrose 800 mg in 250 mls @ 5.475 mls/hr 03/26/19 06:00 03/26/19 10:05 Intropin Drip 800 Mg/D5w 250 Ml IV 0 mcg/kg/min TITR GIO 0 mls/hr Titration Protocol 2 MCG/KG/MIN Sodium Bicarbonate 150 meq/ 1,150 mls @ 125 mls/hr 03/26/19 09:00 03/26/19 09:26 Dextrose IV 125 mls/hr DIRECT GIO Administration Insulin Human Lispro 0 unit 03/26/19 07:00 03/26/19 07:59 Humalog SUB-Q 1 unit Q6HR GIO Administration Protocol Multi-Ingred Cream/Lotion/Oil/Oint 1 applic 03/25/19 18:31 Artificial Tears Ophth Oint OU Q4HR PRN Dry Eye(s)
[2019-03-26] MEDS ORDERED: AMIDATE IV ONE (13:26)
[2019-03-26] MEDS ORDERED: ZEMURON IV ONE (13:26)
[2019-03-26 13:27] LABS: Calcium 7.3 mg/dL (8.4-10.2)
--- NOTE | 2019-03-26 13:37 | Consultation ---
History of Present Illness Consult date: 03/26/19 Consult reason: atrial fibrillation History of present illness: The patient is a 63-year-old male with diabetes, chronic nonhealing diabetic ulcer on his right lower leg, presents to the emergency room with increasing shortness of breath, abdominal pain, altered mental status and respiratory failure, ultimately intubated and is currently sedated on the vent. Further evaluation revealed a severe leukocytosis and he has a diagnosis of sepsis. Cardiac consultation is requested for the finding of a rapid atrial fibrillation on presentation. Despite his long history of diabetes, no patient's states no history of coronary artery disease, heart failure or cardiac tachyarrhythmias. 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 On review of his telemetry, during the night he apparently has spontaneously resolved to a mild sinus tachycardia, currently 107/min. The ECG otherwise shows an incomplete right bundle branch block, but no acute ST or T-wave abnormalities. Laboratory values show an elevation of the CK-MB at 5.1%, but negative troponin levels. Past History Past Medical History: diabetes, hypertension, other (obesity, chronic lymphedema) Past Surgical History: Other (removal of skin cancer on his shoulder area) Social history: smoking (smoked 2 packs of cigarettes per day), full code. denies: alcohol abuse, prescription drug abuse, IV drug use Family history: no significant family history Medications and Allergies Allergies Allergy/AdvReac Type Severity Reaction Status Date / Time venom-honey bee AdvReac Shortness Verified 03/25/19 04:55 of Breath Home Medications Medication Instructions Recorded Confirmed Last Taken Type Bactrim 400-80 mg Tablet 2 tab PO BID 03/26/19 03/26/19 03/23/19 History Etodolac 500 mg PO BID 03/26/19 03/26/19 03/23/19 10:00 History Gabapentin [Neurontin] 300 mg PO BID 03/26/19 03/26/19 03/23/19 10:00 History Lisinopril 03/26/19 03/24/19 10:00 History metFORMIN 03/26/19 03/24/19 History predniSONE [Deltasone] 40 mg PO QDAY 03/26/19 03/26/19 03/23/19 10:00 History Active Meds: Active Medications Albuterol/Ipratropium (Duoneb *Not For Prn Use*) 1 ampul IH Q6HRT GIO Last Admin: 03/26/19 08:46 Dose: 1 ampul Documented by: Arformoterol Tartrate (Brovana Nebu) 15 mcg IH Q12HRT GIO Last Admin: 03/26/19 08:47 Dose: 15 mcg Documented by: Budesonide (Pulmicort) 0.5 mg IH Q12HRT GIO Last Admin: 03/26/19 08:46 Dose: 0.5 mg Documented by: Dextrose (D50w (25gm) Syringe) 50 ml IV PRN PRN PRN Reason: Hypoglycemia Heparin Sodium (Porcine) (Heparin) 5,000 unit SUB-Q Q8HR GIO Last Admin: 03/26/19 13:01 Dose: 5,000 unit Documented by: Hydrophilic Ointment (Vaseline Lip Therapy) 1 applic TP Q2HR PRN PRN Reason: Dry Lips Cefepime HCl 0.5 gm/ Sodium (Chloride) 100 mls @ 200 mls/hr IV Q12HR GIO Last Admin: 03/26/19 10:07 Dose: 200 mls/hr Documented by: Vasopressin 20 unit/ Sodium (Chloride) 101 mls @ 9.09 mls/hr IV TITR GIO; Protocol Last Admin: 03/26/19 07:46 Dose: 0.03 units/min, 9.09 mls/hr Documented by: Norepinephrine (Levophed Drip 4 Mg/Ns 250 Ml) 4 mg in 250 mls @ 7.5 mls/hr IV TITR GIO; Protocol Last Titration: 03/26/19 12:46 Dose: 6 mcg/min, 22.5 mls/hr Documented by: Propofol (Diprivan 10 Mg/Ml) 1,000 mg in 100 mls @ 4.38 mls/hr IV TITR GIO; Protocol Last Titration: 03/26/19 10:15 Dose: 5 mcg/kg/min, 4.38 mls/hr Documented by: Dopamine HCl/Dextrose (Intropin Drip 800 Mg/D5w 250 Ml) 800 mg in 250 mls @ 5.475 mls/hr IV TITR GIO; Protocol Last Titration: 03/26/19 10:05 Dose: 0 mcg/kg/min, 0 mls/hr Documented by: Sodium Bicarbonate 150 meq/ (Dextrose) 1,150 mls @ 125 mls/hr IV DIRECT GIO Last Admin: 03/26/19 09:26 Dose: 125 mls/hr Documented by: Insulin Human Lispro (Humalog) 0 unit SUB-Q Q6HR GIO; Protocol Last Admin: 03/26/19 12:43 Dose: 2 unit Documented by: Multi-Ingred Cream/Lotion/Oil/Oint (Artificial Tears Ophth Oint) 1 applic OU Q4HR PRN PRN Reason: Dry Eye(s) Review of Systems ROS unobtainable: due to endotracheal tube, due to mental status Physical Examination Vital Signs Temp Pulse Resp BP Pulse Ox 97.7 F 81 23 63/32 96 03/25/19 04:44 03/25/19 04:44 03/25/19 04:44 03/25/19 04:44 03/25/19 04:44 General appearance: other (patient is sedated, on the vent) HEENT: Positive: PERRL Neck: Positive: neck supple Cardiac: Positive: Regular Rhythm Lungs: Positive: Decreased Breath Sounds Neuro: Positive: Weakness (patient is sedated, and event) Abdomen: Positive: Soft Male genitourinary: Positive: deferred Skin: Positive: Clear Extremities: Absent: edema Results 03/26/19 05:35 03/26/19 12:55 Cardiac Enzymes 03/25/19 Range/Units 19:23 AST 93 H (5-40) units/L CBC 03/26/19 Range/Units 05:35 WBC 15.3 H (4.5-11.0) K/mm3 RBC 3.42 L (3.65-5.03) M/mm3 Hgb 10.8 L (11.8-15.2) gm/dl Hct 31.9 L (35.5-45.6) % Plt Count 528 H (140-440) K/mm3 Lymph # [employer] [place] # [employer] Eos # [employer] Baso # [employer] Comprehensive Metabolic Panel 03/25/19 03/25/19 03/26/19 Range/Units 15:14 19:23 05:35 Sodium 136 L D 137 136 L (137-145) mmol/L Potassium 5.5 H 5.6 H 5.9 H (3.6-5.0) mmol/L Chloride 100.6 104.3 97.5 L (98-107) mmol/L Carbon Dioxide 17 L 18 L 20 L (22-30) mmol/L BUN 97 H 95 H 100 H (9-20) mg/dL Creatinine 4.4 H 3.9 H 4.8 H (0.8-1.5) mg/dL Glucose 122 H 135 H 169 H (75-100) mg/dL Calcium 7.4 L D 7.5 L 7.0 L (8.4-10.2) mg/dL AST 93 H (5-40) units/L ALT 42 (7-56) units/L Alkaline Phosphatase 144 H (35-129) units/L Total Protein 6.2 L (6.3-8.2) g/dL Albumin 1.6 L (3.9-5) g/dL 03/26/19 Range/Units 12:55 Sodium 137 (137-145) mmol/L Potassium 5.7 H (3.6-5.0) mmol/L Chloride 98.5 (98-107) mmol/L Carbon Dioxide 21 L (22-30) mmol/L BUN 100 H (9-20) mg/dL Creatinine 4.9 H (0.8-1.5) mg/dL Glucose 164 H (75-100) mg/dL Calcium 7.3 L (8.4-10.2) mg/dL AST (5-40) units/L ALT (7-56) units/L Alkaline Phosphatase (35-129) units/L Total Protein (6.3-8.2) g/dL Albumin (3.9-5) g/dL EKG interpretations - Telemetry EKG Rhythm: Atrial Fibrillation Assessment and Plan - Patient Problems (1) Atrial fibrillation with RVR Current Visit: Yes Status: Acute Plan to address problem: Patient presented with respiratory failure, sepsis, acute kidney injury, and rapid atrial fibrillation. Atrial fibrillation has spontaneously resolved, patient reports no prior history of paroxysmal atrial fibrillation. We will treat with intravenous metoprolol, and order an electrocardiogram for left atrial size, left ventricular chamber size and systolic function. Further cardiac evaluation and management will depend on clinical course.
[2019-03-26 22:03] LABS: Calcium 7.1 mg/dL (8.4-10.2)
[2019-03-27] MEDS: HumaLOG SUB-Q SCH ×2 (01:06→06:16)
[2019-03-27] MEDS: DUONEB *Not for PRN Use IH SCH ×4 (02:16→19:32)
[2019-03-27] MEDS: LEVOPHED DRIP 4 MG/NS 250 ML 4 MG/250 ML BAG IV SCH ×4 (02:51→17:04)
[2019-03-27] MEDS: Vasostrict 20 UNIT in NACL 0.9% 100 ML IV SCH ×2 (04:11→17:04)
[2019-03-27] MEDS: HEPARIN SUB-Q SCH ×2 (06:23→17:02)
[2019-03-27] MEDS ORDERED: CALCIUM GLUCONATE 2,000 MG in NACL 0.9% 100 ML IV ONE ×4 (08:00→21:20)
[2019-03-27] MEDS ORDERED: HumuLIN R IV ONE ×4 (08:00→21:26)
[2019-03-27] MEDS ORDERED: D50W (25GM) Syringe IV ONE ×4 (08:00→21:25)
[2019-03-27] MEDS: PULMICORT IH SCH ×2 (09:04→19:32)
[2019-03-27] MEDS: BROVANA NEBU IH SCH (09:04)
--- NOTE | 2019-03-27 09:11 | Progress Note ---
Assessment and Plan Acute respiratory failure, mechanical ventilation support Severe sepsis Shock on pressors A. fib episode Right lower extremity ulcer Hyperkalemia Acute on chronic renal failure Recommendations Continue antibiotics and adjust per cultures nephrology follow-up. Looks like he will need a status report at some point Echocardiogram BETSY for assessment of right, left ventricular function status Serial BP monitoring Keep MAP > 65 Monitor UO, keep > 30 cc/ hr Serial lactate levels q 6-8 hr x 4 NSS bolus-patient already got 6 L fluids PRBC if Hgb < 7 monitor for any bleeding Mechanical ventilation support reviewed, ventilator triage done. Currently tidal volume 550 mL, PEEP 20 , bedside oximetry 85-87% but likely unreliable in the presence or hypotension. Adjusted volume to 500 cc, after PIP of over 50 cm H2O noted, PEEP level down to 18. This produced PIP of 42 but no change on blood pressure otherwise. We'll reassess with ABGs Sedation as needed for patient comfort, adjust to RASS -1 to - 3 Maintain extubation precautions Surgical consult done, already in progress. DVT prophylaxis PPI prophylaxis Currently DO NOT RESUSCITATE. Prognosis is poor, concerned of intra-abdominal crisis at this point Critical care time was 31 minutes of [id number] evaluation and coordination of care Subjective Date of service: 03/27/19 Principal diagnosis: shock, sepsis, respiratory failure Interval history: Intubated and poorly responsive on ventilatory support Objective Vital Signs - 12hr 03/26/19 03/26/19 03/26/19 21:15 21:30 21:45 Temperature Pulse Rate 111 H 111 H 115 H Pulse Rate [ From Monitor] Respiratory 24 24 23 Rate Blood Pressure 93/45 103/43 94/52 O2 Sat by Pulse 84 84 83 L Oximetry 03/26/19 03/26/19 03/26/19 22:00 22:04 22:15 Temperature Pulse Rate 115 H 112 H 116 H Pulse Rate [ From Monitor] Respiratory 24 24 24 Rate Blood Pressure 102/49 110/50 115/53 O2 Sat by Pulse 83 L 83 L 82 L Oximetry 03/26/19 03/26/19 03/26/19 22:30 22:45 22:50 Temperature Pulse Rate 115 H 114 H Pulse Rate [ From Monitor] Respiratory 24 24 Rate Blood Pressure 120/55 114/49 O2 Sat by Pulse 82 L 83 L 82 L Oximetry 03/26/19 03/26/19 03/26/19 23:00 23:15 23:30 Temperature Pulse Rate 117 H 117 H 114 H Pulse Rate [ From Monitor] Respiratory 22 25 H 24 Rate Blood Pressure 120/52 112/64 112/50 O2 Sat by Pulse 82 L 80 L 82 L Oximetry 03/26/19 03/27/19 03/27/19 23:45 00:00 00:08 Temperature 98.0 F Pulse Rate 114 H 130 H 123 H Pulse Rate [ 130 H From Monitor] Respiratory 24 24 Rate Blood Pressure 107/43 119/56 119/56 O2 Sat by Pulse 80 L 74 L 77 L Oximetry 03/27/19 03/27/19 03/27/19 00:15 00:30 00:45 Temperature Pulse Rate 121 H 126 H 120 H Pulse Rate [ From Monitor] Respiratory 24 24 24 Rate Blood Pressure 110/49 130/50 107/51 O2 Sat by Pulse 76 L 74 L 78 L Oximetry 03/27/19 03/27/19 03/27/19 01:00 01:15 01:30 Temperature Pulse Rate 116 H 115 H 110 H Pulse Rate [ From Monitor] Respiratory 24 21 24 Rate Blood Pressure 108/50 98/50 108/49 O2 Sat by Pulse 78 L 79 L 80 L Oximetry 03/27/19 03/27/19 03/27/19 01:45 02:00 02:15 Temperature Pulse Rate 108 H 113 H 107 H Pulse Rate [ From Monitor] Respiratory 21 24 24 Rate Blood Pressure 110/51 98/47 114/47 O2 Sat by Pulse 81 L 80 L 80 L Oximetry 03/27/19 03/27/19 03/27/19 02:30 02:45 03:00 Temperature Pulse Rate 114 H 112 H 114 H Pulse Rate [ From Monitor] Respiratory 22 24 25 H Rate Blood Pressure 114/54 107/56 112/62 O2 Sat by Pulse 81 L 81 L 82 L Oximetry 03/27/19 03/27/19 03/27/19 03:15 03:30 03:40 Temperature Pulse Rate 112 H 114 H 120 H Pulse Rate [ From Monitor] Respiratory 24 24 Rate Blood Pressure 117/54 116/58 116/58 O2 Sat by Pulse 81 L 81 L 82 L Oximetry 03/27/19 03/27/19 03/27/19 03:45 04:00 04:15 Temperature 97.4 F L Pulse Rate 117 H 117 H 115 H Pulse Rate [ 117 H From Monitor] Respiratory 24 26 H 24 Rate Blood Pressure 122/54 123/63 127/62 O2 Sat by Pulse 82 L 80 L 81 L Oximetry 03/27/19 03/27/19 03/27/19 04:30 04:45 05:00 Temperature Pulse Rate 118 H 118 H 120 H Pulse Rate [ From Monitor] Respiratory 24 24 24 Rate Blood Pressure 122/60 107/50 107/50 O2 Sat by Pulse 81 L 81 L 81 L Oximetry 03/27/19 03/27/19 03/27/19 05:15 05:30 05:45 Temperature Pulse Rate 120 H 121 H 127 H Pulse Rate [ From Monitor] Respiratory 22 27 H 25 H Rate Blood Pressure 87/54 87/54 109/64 O2 Sat by Pulse 80 L 80 L 81 L Oximetry 03/27/19 03/27/19 03/27/19 06:00 06:16 06:30 Temperature Pulse Rate 198 H 189 H 165 H Pulse Rate [ From Monitor] Respiratory 27 H 24 25 H Rate Blood Pressure 120/63 124/97 124/97 O2 Sat by Pulse 81 L 78 L 78 L Oximetry 03/27/19 03/27/19 03/27/19 06:45 07:01 07:15 Temperature Pulse Rate 149 H 144 H 151 H Pulse Rate [ From Monitor] Respiratory 26 H 26 H 26 H Rate Blood Pressure 88/46 100/45 81/46 O2 Sat by Pulse 79 L 80 L 76 L Oximetry 03/27/19 03/27/19 03/27/19 07:30 07:45 08:00 Temperature 100.3 F H Pulse Rate 156 H 152 H 155 H Pulse Rate [ From Monitor] Respiratory 25 H 26 H 26 H Rate Blood Pressure 81/41 77/51 79/45 O2 Sat by Pulse 82 L 83 L 83 L Oximetry 03/27/19 03/27/19 03/27/19 08:15 08:30 08:45 Temperature Pulse Rate 152 H 167 H 173 H Pulse Rate [ From Monitor] Respiratory 26 H 27 H 28 H Rate Blood Pressure 77/53 83/36 96/44 O2 Sat by Pulse 85 Oximetry 03/27/19 03/27/19 09:00 09:08 Temperature 100.3 F H Pulse Rate 133 H Pulse Rate [ From Monitor] Respiratory 23 24 Rate Blood Pressure 96/44 64/35 O2 Sat by Pulse 87 84 Oximetry Constitutional: appears uncomfortable, other (morbidly obese) Eyes: non-icteric ENT: oropharynx dry Neck: supple, other (extremely large in circumference) Effort: mildly labored Ascultation: Bilateral: clear, diminished breath sounds Cardiovascular: irregular rhythm Gastrointestinal: hypoactive bowel sounds, non-tender, other (distended and tender) Extremities: anasarca, other ( leg wound ulcer) Neurologic: unable to assess, other (poor response to pain) CBC and BMP: 03/26/19 05:35 03/27/19 10:00 ABG, PT/INR, D-dimer: ABG POC ABG pH 7.183 (7.35-7.45) L 03/26/19 04:41 POC ABG pCO2 56.9 (35-45) H 03/26/19 04:41 POC ABG pO2 77 (80-105) L 03/26/19 04:41 POC ABG HCO3 21.4 (22-26 mml/L) 03/26/19 04:41 POC ABG Total CO2 23 (23-27mmol/L) 03/26/19 04:41 POC ABG O2 Sat 91 03/26/19 04:41 PT/INR, D-dimer PT 15.0 Sec. (12.2-14.9) H 03/25/19 07:14 INR 1.11 (0.87-1.13) 03/25/19 07:14 Abnormal lab findings: Abnormal Labs 03/25/19 03/25/19 03/25/19 05:20 05:20 05:20 WBC 25.2 H RBC 3.38 L Hgb 10.6 L Hct 31.5 L Plt Count 519 H Seg Neuts % (Manual) 80.0 H Lymphocytes % (Manual) 5.0 L Seg Neutrophils # Man 20.2 H Lymphocytes # (Manual) Monocytes # (Manual) 1.8 H PT POC ABG pH POC ABG pCO2 POC ABG pO2 Sodium 156 H Potassium 5.4 H Chloride 117.6 H Carbon Dioxide 16 L BUN 99 H Creatinine 4.3 H Glucose 73 L POC Glucose Hemoglobin A1c Lactic Acid 4.00 H* Calcium AST 54 H Alkaline Phosphatase 185 H Total Creatine Kinase CK-MB (CK-2) CK-MB (CK-2) Rel Index NT-Pro-B Natriuret Pep Total Protein Albumin 2.2 L Urine Creatinine 03/25/19 03/25/19 03/25/19 05:20 06:47 07:14 WBC RBC Hgb Hct Plt Count Seg Neuts % (Manual) Lymphocytes % (Manual) Seg Neutrophils # Man Lymphocytes # (Manual) Monocytes # (Manual) PT 15.0 H POC ABG pH POC ABG pCO2 POC ABG pO2 Sodium Potassium Chloride Carbon Dioxide BUN Creatinine Glucose POC Glucose 109 H Hemoglobin A1c Lactic Acid Calcium AST Alkaline Phosphatase Total Creatine Kinase 773 H CK-MB (CK-2) 40.0 H CK-MB (CK-2) Rel Index 5.1 H NT-Pro-B Natriuret Pep 976.1 H Total Protein Albumin Urine Creatinine 03/25/19 03/25/19 03/25/19 07:29 08:49 11:06 WBC RBC Hgb Hct Plt Count Seg Neuts % (Manual) Lymphocytes % (Manual) Seg Neutrophils # Man Lymphocytes # (Manual) Monocytes # (Manual) PT POC ABG pH 7.270 L 7.169 L POC ABG pCO2 POC ABG pO2 65 L 63 L Sodium Potassium Chloride Carbon Dioxide BUN Creatinine Glucose POC Glucose Hemoglobin A1c Lactic Acid 2.40 H* Calcium AST Alkaline Phosphatase Total Creatine Kinase CK-MB (CK-2) CK-MB (CK-2) Rel Index NT-Pro-B Natriuret Pep Total Protein Albumin Urine Creatinine 03/25/19 03/25/19 03/25/19 12:58 14:45 15:14 WBC RBC Hgb Hct Plt Count Seg Neuts % (Manual) Lymphocytes % (Manual) Seg Neutrophils # Man Lymphocytes # (Manual) Monocytes # (Manual) PT POC ABG pH POC ABG pCO2 POC ABG pO2 Sodium 136 L D Potassium 5.5 H Chloride Carbon Dioxide 17 L BUN 97 H Creatinine 4.4 H Glucose 122 H POC Glucose Hemoglobin A1c 6.4 H Lactic Acid Calcium 7.4 L D AST Alkaline Phosphatase Total Creatine Kinase CK-MB (CK-2) CK-MB (CK-2) Rel Index NT-Pro-B Natriuret Pep Total Protein Albumin Urine Creatinine 69.5 H 03/25/19 03/25/19 03/25/19 19:23 23:17 23:27 WBC RBC Hgb Hct Plt Count Seg Neuts % (Manual) Lymphocytes % (Manual) Seg Neutrophils # Man Lymphocytes # (Manual) Monocytes # (Manual) PT POC ABG pH 7.147 L POC ABG pCO2 51.8 H POC ABG pO2 76 L Sodium Potassium 5.6 H Chloride Carbon Dioxide 18 L BUN 95 H Creatinine 3.9 H Glucose 135 H POC Glucose 192 H Hemoglobin A1c Lactic Acid Calcium 7.5 L AST 93 H Alkaline Phosphatase 144 H Total Creatine Kinase CK-MB (CK-2) CK-MB (CK-2) Rel Index NT-Pro-B Natriuret Pep Total Protein 6.2 L Albumin 1.6 L Urine Creatinine 03/26/19 03/26/19 03/26/19 04:41 05:35 05:35 WBC 15.3 H RBC 3.42 L Hgb 10.8 L Hct 31.9 L Plt Count 528 H Seg Neuts % (Manual) 81.0 H Lymphocytes % (Manual) 3.0 L Seg Neutrophils # Man 12.4 H Lymphocytes # (Manual) 0.5 L Monocytes # (Manual) PT POC ABG pH 7.183 L POC ABG pCO2 56.9 H POC ABG pO2 77 L Sodium 136 L Potassium 5.9 H Chloride 97.5 L Carbon Dioxide 20 L BUN 100 H Creatinine 4.8 H Glucose 169 H POC Glucose Hemoglobin A1c Lactic Acid Calcium 7.0 L AST Alkaline Phosphatase Total Creatine Kinase CK-MB (CK-2) CK-MB (CK-2) Rel Index NT-Pro-B Natriuret Pep Total Protein Albumin Urine Creatinine 03/26/19 03/26/19 03/26/19 07:41 12:31 12:55 WBC RBC Hgb Hct Plt Count Seg Neuts % (Manual) Lymphocytes % (Manual) Seg Neutrophils # Man Lymphocytes # (Manual) Monocytes # (Manual) PT POC ABG pH POC ABG pCO2 POC ABG pO2 Sodium Potassium 5.7 H Chloride Carbon Dioxide 21 L BUN 100 H Creatinine 4.9 H Glucose 164 H POC Glucose 172 H 210 H Hemoglobin A1c Lactic Acid Calcium 7.3 L AST Alkaline Phosphatase Total Creatine Kinase CK-MB (CK-2) CK-MB (CK-2) Rel Index NT-Pro-B Natriuret Pep Total Protein Albumin Urine Creatinine 03/26/19 03/26/19 03/27/19 17:48 21:24 00:53 WBC RBC Hgb Hct Plt Count Seg Neuts % (Manual) Lymphocytes % (Manual) Seg Neutrophils # Man Lymphocytes # (Manual) Monocytes # (Manual) PT POC ABG pH POC ABG pCO2 POC ABG pO2 Sodium Potassium 5.7 H Chloride 96.3 L Carbon Dioxide BUN 104 H Creatinine 5.3 H Glucose 152 H POC Glucose 200 H 163 H Hemoglobin A1c Lactic Acid Calcium 7.1 L AST Alkaline Phosphatase Total Creatine Kinase CK-MB (CK-2) CK-MB (CK-2) Rel Index NT-Pro-B Natriuret Pep Total Protein Albumin Urine Creatinine 03/27/19 05:20 WBC RBC Hgb Hct Plt Count Seg Neuts % (Manual) Lymphocytes % (Manual) Seg Neutrophils # Man Lymphocytes # (Manual) Monocytes # (Manual) PT POC ABG pH POC ABG pCO2 POC ABG pO2 Sodium Potassium 5.7 H Chloride 97.0 L Carbon Dioxide BUN 105 H Creatinine 5.2 H Glucose 147 H POC Glucose Hemoglobin A1c Lactic Acid Calcium 7.0 L AST Alkaline Phosphatase Total Creatine Kinase CK-MB (CK-2) CK-MB (CK-2) Rel Index NT-Pro-B Natriuret Pep Total Protein Albumin Urine Creatinine Chest x-ray: report reviewed, image reviewed
[2019-03-27] MEDS ORDERED: VANCOMYCIN/NS 1 GM/250 ML 1 GM/250 ML BAG IV ONE (10:00)
[2019-03-27] MEDS ORDERED: PEPCID IV SCH (10:00)
[2019-03-27] MEDS: MAXIPIME 0.5 GM in NACL 0.9% 100 ML IV SCH (10:23)
[2019-03-27] MEDS ORDERED: PROVENTIL IH ONE (11:45)
[2019-03-27] MEDS ORDERED: LANOXIN IV ONE (12:00)
--- NOTE | 2019-03-27 12:19 | Progress Note ---
Assessment and Plan 1. Acute kidney injury: Vasomotor KAIDEN in the setting of hypotension / shock. CT abdomen was negative for hydro. Renal function continue to decline. Continue IV fluids. Renal prognosis is guarded. Avoid nephrotoxic agents. Meds dosage based on GFR. D/w patient's and son regarding treatment options for hyperkalemia and Renal fialure. Unfortunately he would not tolerate hemodialysis at this point due to severe hypotension / shock requiring 2 different pressors and tachycardia. Family is aware that overall prognosis is poor. 2. FEN: Hyperkalemia, continue Insulin-dextrose, IV Calcium and Albuterol. Anion gap MA in the setting of lactic acidosis and KAIDEN, improving with Bicarb drip. Hypernatremia, improved. Monitor lytes. 3. Septic shock: On Levophed and Vasopressin. 4. Respiratory failure: On vent. H/o COPD. 5. Diabetic LE infection. 6. Anemia: POA. 7. DM type 2. 8. A.fib with RVR: Followed by Cards. Subjective Date of service: 03/27/19 Principal diagnosis: shock, sepsis, respiratory failure Interval history: Patient was seen and examined at the bedside. Objective - Vital Signs Vital signs: Vital Signs - 12hr 03/27/19 03/27/19 03/27/19 00:30 00:45 01:00 Temperature Pulse Rate 126 H 120 H 116 H Pulse Rate [ Anterior Bilateral] Pulse Rate [ Brachial] Pulse Rate [ From Monitor] Respiratory 24 24 24 Rate Respiratory Rate [Anterior Bilateral] Blood Pressure 130/50 107/51 108/50 O2 Sat by Pulse 74 L 78 L 78 L Oximetry 03/27/19 03/27/19 03/27/19 01:15 01:30 01:45 Temperature Pulse Rate 115 H 110 H 108 H Pulse Rate [ Anterior Bilateral] Pulse Rate [ Brachial] Pulse Rate [ From Monitor] Respiratory 21 24 21 Rate Respiratory Rate [Anterior Bilateral] Blood Pressure 98/50 108/49 110/51 O2 Sat by Pulse 79 L 80 L 81 L Oximetry 03/27/19 03/27/19 03/27/19 02:00 02:15 02:30 Temperature Pulse Rate 113 H 107 H 114 H Pulse Rate [ Anterior Bilateral] Pulse Rate [ Brachial] Pulse Rate [ From Monitor] Respiratory 24 24 22 Rate Respiratory Rate [Anterior Bilateral] Blood Pressure 98/47 114/47 114/54 O2 Sat by Pulse 80 L 80 L 81 L Oximetry 03/27/19 03/27/19 03/27/19 02:45 03:00 03:15 Temperature Pulse Rate 112 H 114 H 112 H Pulse Rate [ Anterior Bilateral] Pulse Rate [ Brachial] Pulse Rate [ From Monitor] Respiratory 24 25 H 24 Rate Respiratory Rate [Anterior Bilateral] Blood Pressure 107/56 112/62 117/54 O2 Sat by Pulse 81 L 82 L 81 L Oximetry 03/27/19 03/27/19 03/27/19 03:30 03:40 03:45 Temperature Pulse Rate 114 H 120 H 117 H Pulse Rate [ Anterior Bilateral] Pulse Rate [ Brachial] Pulse Rate [ From Monitor] Respiratory 24 24 Rate Respiratory Rate [Anterior Bilateral] Blood Pressure 116/58 116/58 122/54 O2 Sat by Pulse 81 L 82 L 82 L Oximetry 03/27/19 03/27/19 03/27/19 04:00 04:15 04:30 Temperature 97.4 F L Pulse Rate 117 H 115 H 118 H Pulse Rate [ Anterior Bilateral] Pulse Rate [ Brachial] Pulse Rate [ 117 H From Monitor] Respiratory 26 H 24 24 Rate Respiratory Rate [Anterior Bilateral] Blood Pressure 123/63 127/62 122/60 O2 Sat by Pulse 80 L 81 L 81 L Oximetry 03/27/19 03/27/19 03/27/19 04:45 05:00 05:15 Temperature Pulse Rate 118 H 120 H 120 H Pulse Rate [ Anterior Bilateral] Pulse Rate [ Brachial] Pulse Rate [ From Monitor] Respiratory 24 24 22 Rate Respiratory Rate [Anterior Bilateral] Blood Pressure 107/50 107/50 87/54 O2 Sat by Pulse 81 L 81 L 80 L Oximetry 03/27/19 03/27/19 03/27/19 05:30 05:45 06:00 Temperature Pulse Rate 121 H 127 H 198 H Pulse Rate [ Anterior Bilateral] Pulse Rate [ Brachial] Pulse Rate [ From Monitor] Respiratory 27 H 25 H 27 H Rate Respiratory Rate [Anterior Bilateral] Blood Pressure 87/54 109/64 120/63 O2 Sat by Pulse 80 L 81 L 81 L Oximetry 03/27/19 03/27/19 03/27/19 06:16 06:30 06:45 Temperature Pulse Rate 189 H 165 H 149 H Pulse Rate [ Anterior Bilateral] Pulse Rate [ Brachial] Pulse Rate [ From Monitor] Respiratory 24 25 H 26 H Rate Respiratory Rate [Anterior Bilateral] Blood Pressure 124/97 124/97 88/46 O2 Sat by Pulse 78 L 78 L 79 L Oximetry 03/27/19 03/27/19 03/27/19 07:01 07:15 07:30 Temperature Pulse Rate 144 H 151 H 156 H Pulse Rate [ Anterior Bilateral] Pulse Rate [ Brachial] Pulse Rate [ From Monitor] Respiratory 26 H 26 H 25 H Rate Respiratory Rate [Anterior Bilateral] Blood Pressure 100/45 81/46 81/41 O2 Sat by Pulse 80 L 76 L 82 L Oximetry 03/27/19 03/27/19 03/27/19 07:45 08:00 08:15 Temperature 100.3 F H Pulse Rate 152 H 155 H 152 H Pulse Rate [ Anterior Bilateral] Pulse Rate [ Brachial] Pulse Rate [ From Monitor] Respiratory 26 H 26 H 26 H Rate Respiratory Rate [Anterior Bilateral] Blood Pressure 77/51 79/45 77/53 O2 Sat by Pulse 83 L 83 L Oximetry 03/27/19 03/27/19 03/27/19 08:30 08:45 09:00 Temperature Pulse Rate 167 H 173 H 133 H Pulse Rate [ Anterior Bilateral] Pulse Rate [ Brachial] Pulse Rate [ From Monitor] Respiratory 27 H 28 H 23 Rate Respiratory Rate [Anterior Bilateral] Blood Pressure 83/36 96/44 96/44 O2 Sat by Pulse 85 87 Oximetry 03/27/19 03/27/19 03/27/19 09:04 09:05 09:08 Temperature 100.3 F H Pulse Rate 129 H Pulse Rate [ 129 H Anterior Bilateral] Pulse Rate [ Brachial] Pulse Rate [ From Monitor] Respiratory 24 Rate Respiratory 25 H Rate [Anterior Bilateral] Blood Pressure 55/27 64/35 O2 Sat by Pulse 85 84 Oximetry 03/27/19 03/27/19 03/27/19 09:14 09:22 11:11 Temperature 100.6 F H Pulse Rate 167 H Pulse Rate [ 130 H Anterior Bilateral] Pulse Rate [ 175 H Brachial] Pulse Rate [ From Monitor] Respiratory 27 H Rate Respiratory 26 H Rate [Anterior Bilateral] Blood Pressure 81/48 99/51 O2 Sat by Pulse 81 L 87 Oximetry 03/27/19 03/27/19 12:08 12:14 Temperature Pulse Rate 184 H Pulse Rate [ 203 H Anterior Bilateral] Pulse Rate [ Brachial] Pulse Rate [ From Monitor] Respiratory Rate Respiratory 27 H Rate [Anterior Bilateral] Blood Pressure 99/60 O2 Sat by Pulse Oximetry - General Appearance General appearance: well-developed, well-nourished, appears stated age, obese, intubated, other (on vent) EENT: ATNC, PERRL Neck: supple Respiratory: Present: Clear to Ascultation Cardiology: tachycardia, S1S2, no murmurs Gastrointestinal: distended, obese Integumentary: erythema, chronic venous stasis Neurologic: obtunded Musculoskeletal: other (bilateral LE edema noted) - Lab 03/26/19 05:35 03/27/19 10:00 Most recent lab results Calcium 7.0 mg/dL (8.4-10.2) L 03/27/19 05:20 Magnesium 2.30 mg/dL (1.7-2.3) 03/25/19 05:20 69.5 mg/dL (0.1-20.0) H 03/25/19 14:45 52 mmol/L 03/25/19 14:45 Medications & Allergies - Medications Allergies/Adverse Reactions: Allergies venom-honey bee Adverse Reaction (Verified 03/25/19 04:55) Shortness of Breath Home Medications: Home Medications Medication Instructions Recorded Confirmed Last Taken Type Bactrim 400-80 mg Tablet 2 tab PO BID 03/26/19 03/26/19 03/23/19 History Etodolac 500 mg PO BID 03/26/19 03/26/19 03/23/19 10:00 History Gabapentin [Neurontin] 300 mg PO BID 03/26/19 03/26/19 03/23/19 10:00 History Lisinopril 03/26/19 03/24/19 10:00 History metFORMIN 03/26/19 03/24/19 History predniSONE [Deltasone] 40 mg PO QDAY 03/26/19 03/26/19 03/23/19 10:00 History Active Medications: Generic Name Dose Route Start Last Admin Trade Name Freq PRN Reason Stop Dose Admin Albuterol/Ipratropium 1 ampul 03/26/19 02:00 03/27/19 09:04 Duoneb *Not For Prn Use* IH Not Given Q6HRT GIO Budesonide 0.5 mg 03/25/19 12:45 03/27/19 09:04 Pulmicort IH 0.5 mg Q12HRT GIO Administration Dextrose 50 ml 03/25/19 12:07 D50w (25gm) Syringe IV PRN PRN Hypoglycemia Digoxin 0.125 mg 03/29/19 17:00 Lanoxin IV Q48H GIO Famotidine 20 mg 03/27/19 10:00 Pepcid IV DAILY GIO Heparin Sodium (Porcine) 5,000 unit 03/25/19 14:00 03/27/19 06:23 Heparin SUB-Q 5,000 unit Q8HR GIO Administration Hydrophilic Ointment 1 applic 03/25/19 18:31 Vaseline Lip Therapy TP Q2HR PRN Dry Lips Cefepime HCl 0.5 gm/ Sodium 100 mls @ 200 mls/hr 03/25/19 10:00 03/27/19 10:23 Chloride IV 200 mls/hr Q12HR GIO Administration Vasopressin 20 unit/ Sodium 101 mls @ 9.09 mls/hr 03/25/19 12:00 03/27/19 04:11 Chloride IV 0.03 units/min TITR GIO 9.09 mls/hr Administration Protocol 0.03 UNITS/MIN Norepinephrine 4 mg in 250 mls @ 7.5 mls/hr 03/25/19 18:27 03/27/19 10:40 Levophed Drip 4 Mg/Ns 250 Ml IV 24 mcg/min TITR GIO 90 mls/hr Titration Protocol 2 MCG/MIN Propofol 1,000 mg in 100 mls @ 4.38 mls/hr 03/25/19 19:00 03/26/19 20:00 Diprivan 10 Mg/Ml IV 0 mcg/kg/min TITR GIO 0 mls/hr Titration Protocol 5 MCG/KG/MIN Dopamine HCl/Dextrose 800 mg in 250 mls @ 5.475 mls/hr 03/26/19 06:00 03/27/19 06:25 Intropin Drip 800 Mg/D5w 250 Ml IV 0 mcg/kg/min TITR GIO 0 mls/hr Titration Protocol 2 MCG/KG/MIN Sodium Bicarbonate 150 meq/ 1,150 mls @ 125 mls/hr 03/26/19 09:00 03/27/19 04:09 Dextrose IV Infused DIRECT GIO Infusion Insulin Human Lispro 0 unit 03/26/19 07:00 03/27/19 06:16 Humalog SUB-Q Not Given Q6HR GIO Protocol Multi-Ingred Cream/Lotion/Oil/Oint 1 applic 03/25/19 18:31 Artificial Tears Ophth Oint OU Q4HR PRN Dry Eye(s)
--- NOTE | 2019-03-27 13:19 | Progress Note ---
Assessment and Plan Respiratory failure Sepsis Diabetes Chronic nonhealing diabetic ulcer on his right lower leg Rapid atrial fibrillation on presentation Renal failure Hyperkalemia DNR status For rapid atrial fibrillation we will use digoxin, dosed for renal function. Subjective Date of service: 03/27/19 Principal diagnosis: shock, sepsis, respiratory failure Interval history: Patient remains intubated on the vent, on multiple pressors, now DNR status. Rapid atrial fibrillation on telemetry. Objective Vital Signs Temp Pulse Pulse Pulse Pulse Resp Resp 03/27/19 12:46 100.7 F H 173 H 29 H 03/27/19 12:23 169 H 29 H 03/27/19 12:14 184 H 03/27/19 12:08 203 H 27 H 03/27/19 12:00 100.7 F H 03/27/19 11:11 167 H 03/27/19 09:22 100.6 F H 175 H 27 H 03/27/19 09:14 130 H 26 H 03/27/19 09:08 100.3 F H 24 03/27/19 09:05 129 H 03/27/19 09:04 129 H 25 H 03/27/19 09:00 133 H 23 03/27/19 08:45 173 H 28 H 03/27/19 08:30 167 H 27 H 03/27/19 08:15 152 H 26 H 03/27/19 08:00 100.3 F H 155 H 26 H 03/27/19 07:45 152 H 26 H 03/27/19 07:30 156 H 25 H 03/27/19 07:15 151 H 26 H 03/27/19 07:01 144 H 26 H 03/27/19 06:45 149 H 26 H 03/27/19 06:30 165 H 25 H 03/27/19 06:16 189 H 24 03/27/19 06:00 198 H 27 H 03/27/19 05:45 127 H 25 H 03/27/19 05:30 121 H 27 H 03/27/19 05:15 120 H 22 03/27/19 05:00 120 H 24 03/27/19 04:45 118 H 24 03/27/19 04:30 118 H 24 03/27/19 04:15 115 H 24 03/27/19 04:00 97.4 F L 117 H 117 H 26 H 03/27/19 03:45 117 H 24 03/27/19 03:40 120 H 03/27/19 03:30 114 H 24 03/27/19 03:15 112 H 24 03/27/19 03:00 114 H 25 H 03/27/19 02:45 112 H 24 03/27/19 02:30 114 H 22 03/27/19 02:15 107 H 24 03/27/19 02:00 113 H 24 03/27/19 01:45 108 H 21 03/27/19 01:30 110 H 24 03/27/19 01:15 115 H 21 03/27/19 01:00 116 H 24 03/27/19 00:45 120 H 24 03/27/19 00:30 126 H 24 03/27/19 00:15 121 H 24 03/27/19 00:08 123 H 03/27/19 00:00 98.0 F 130 H 130 H 24 03/26/19 23:45 114 H 24 03/26/19 23:30 114 H 24 03/26/19 23:15 117 H 25 H 03/26/19 23:00 117 H 22 03/26/19 22:50 03/26/19 22:45 114 H 24 03/26/19 22:30 115 H 24 03/26/19 22:15 116 H 24 03/26/19 22:04 112 H 24 03/26/19 22:00 115 H 24 03/26/19 21:45 115 H 23 03/26/19 21:30 111 H 24 03/26/19 21:15 111 H 24 03/26/19 21:00 111 H 24 03/26/19 20:45 109 H 22 03/26/19 20:35 03/26/19 20:30 108 H 108 H 25 H 26 H 03/26/19 20:15 109 H 24 03/26/19 20:00 97.8 F 107 H 107 H 24 03/26/19 19:50 109 H 108 H 24 03/26/19 19:45 109 H 24 03/26/19 19:30 113 H 24 03/26/19 19:15 108 H 21 03/26/19 19:00 108 H 24 03/26/19 18:45 111 H 24 03/26/19 18:30 110 H 24 03/26/19 18:15 114 H 25 H 03/26/19 18:00 112 H 24 03/26/19 17:45 117 H 24 03/26/19 17:30 116 H 24 03/26/19 17:15 112 H 25 H 03/26/19 17:00 106 H 24 03/26/19 16:45 109 H 26 H 03/26/19 16:30 109 H 25 H 03/26/19 16:15 108 H 24 03/26/19 16:00 100.5 F H 108 H 107 H 1 L 03/26/19 15:45 107 H 24 03/26/19 15:30 108 H 24 03/26/19 15:15 108 H 25 H 03/26/19 15:00 106 H 24 03/26/19 14:45 107 H 24 03/26/19 14:30 109 H 23 03/26/19 14:15 109 H 24 03/26/19 14:04 106 H 24 03/26/19 14:00 104 H 25 H 03/26/19 13:53 106 H 03/26/19 13:45 109 H 24 03/26/19 13:30 109 H 24 BP Pulse Ox 03/27/19 12:46 101/72 83 L 03/27/19 12:23 03/27/19 12:14 99/60 03/27/19 12:08 03/27/19 12:00 03/27/19 11:11 99/51 87 03/27/19 09:22 81/48 81 L 03/27/19 09:14 03/27/19 09:08 64/35 84 03/27/19 09:05 55/27 85 03/27/19 09:04 03/27/19 09:00 96/44 87 03/27/19 08:45 96/44 03/27/19 08:30 83/36 85 03/27/19 08:15 77/53 03/27/19 08:00 79/45 83 L 03/27/19 07:45 77/51 83 L 03/27/19 07:30 81/41 82 L 03/27/19 07:15 81/46 76 L 03/27/19 07:01 100/45 80 L 03/27/19 06:45 88/46 79 L 03/27/19 06:30 124/97 78 L 03/27/19 06:16 124/97 78 L 03/27/19 06:00 120/63 81 L 03/27/19 05:45 109/64 81 L 03/27/19 05:30 87/54 80 L 03/27/19 05:15 87/54 80 L 03/27/19 05:00 107/50 81 L 03/27/19 04:45 107/50 81 L 03/27/19 04:30 122/60 81 L 03/27/19 04:15 127/62 81 L 03/27/19 04:00 123/63 80 L 03/27/19 03:45 122/54 82 L 03/27/19 03:40 116/58 82 L 03/27/19 03:30 116/58 81 L 03/27/19 03:15 117/54 81 L 03/27/19 03:00 112/62 82 L 03/27/19 02:45 107/56 81 L 03/27/19 02:30 114/54 81 L 03/27/19 02:15 114/47 80 L 03/27/19 02:00 98/47 80 L 03/27/19 01:45 110/51 81 L 03/27/19 01:30 108/49 80 L 03/27/19 01:15 98/50 79 L 03/27/19 01:00 108/50 78 L 03/27/19 00:45 107/51 78 L 03/27/19 00:30 130/50 74 L 03/27/19 00:15 110/49 76 L 03/27/19 00:08 119/56 77 L 03/27/19 00:00 119/56 74 L 03/26/19 23:45 107/43 80 L 03/26/19 23:30 112/50 82 L 03/26/19 23:15 112/64 80 L 03/26/19 23:00 120/52 82 L 03/26/19 22:50 82 L 03/26/19 22:45 114/49 83 L 03/26/19 22:30 120/55 82 L 03/26/19 22:15 115/53 82 L 03/26/19 22:04 110/50 83 L 03/26/19 22:00 102/49 83 L 03/26/19 21:45 94/52 83 L 03/26/19 21:30 103/43 84 03/26/19 21:15 93/45 84 03/26/19 21:00 102/49 84 03/26/19 20:45 102/44 85 03/26/19 20:35 83 L 03/26/19 20:30 86/47 84 03/26/19 20:15 80/44 83 L 03/26/19 20:00 92/43 83 L 03/26/19 19:50 93/43 80 L 03/26/19 19:45 93/43 82 L 03/26/19 19:30 97/48 78 L 03/26/19 19:15 102/51 78 L 03/26/19 19:00 94/46 89 03/26/19 18:45 94/46 90 03/26/19 18:30 84/48 89 03/26/19 18:15 100/46 90 03/26/19 18:00 92/41 90 03/26/19 17:45 102/52 89 03/26/19 17:30 105/47 89 03/26/19 17:15 119/53 89 03/26/19 17:00 103/50 90 03/26/19 16:45 106/53 90 03/26/19 16:30 116/50 91 03/26/19 16:15 107/48 90 03/26/19 16:00 103/50 88 03/26/19 15:45 110/47 91 03/26/19 15:30 105/60 90 03/26/19 15:15 92/52 90 03/26/19 15:00 92/45 92 03/26/19 14:45 108/53 90 03/26/19 14:30 102/46 91 03/26/19 14:15 105/48 91 03/26/19 14:04 03/26/19 14:00 95/56 92 03/26/19 13:53 95/60 92 03/26/19 13:45 106/54 90 03/26/19 13:30 114/54 91 - Physical Examination General: Other (intubated on the vent) Cardiac: Positive: irregularly irregular Neuro: Positive: Weakness (patient is sedated, and event) Abdomen: Positive: Soft Skin: Positive: Clear Extremities: Absent: edema - Labs and Meds Comprehensive Metabolic Panel 03/26/19 03/26/19 03/27/19 Range/Units 12:55 21:24 05:20 Sodium 137 137 140 (137-145) mmol/L Potassium 5.7 H 5.7 H 5.7 H (3.6-5.0) mmol/L Chloride 98.5 96.3 L 97.0 L (98-107) mmol/L Carbon Dioxide 21 L 23 24 (22-30) mmol/L BUN 100 H 104 H 105 H (9-20) mg/dL Creatinine 4.9 H 5.3 H 5.2 H (0.8-1.5) mg/dL Glucose 164 H 152 H 147 H (75-100) mg/dL Calcium 7.3 L 7.1 L 7.0 L (8.4-10.2) mg/dL 03/27/19 Range/Units 10:00 Sodium (137-145) mmol/L Potassium 6.2 H* (3.6-5.0) mmol/L Chloride (98-107) mmol/L Carbon Dioxide (22-30) mmol/L BUN (9-20) mg/dL Creatinine (0.8-1.5) mg/dL Glucose (75-100) mg/dL Calcium (8.4-10.2) mg/dL
--- NOTE | 2019-03-27 14:29 | Progress Note ---
Assessment and Plan Assessment and plan: Abdominal pain History of present illness: Patient is poor historian 63-year-old male with past medical history significant for morbid obesity, bilateral neck edema, diabetes mellitus, hypertension presented to the emergency department with complaints of lower abdominal pain. Pain was sharp, 10 out of 10 intensity, with no radiation, not alleviating or aggravating f actors identified. Patient had bowel movement last night. Patient denied nausea, vomiting, diarrhea, constipation, fever, chills. Patient also complains shortness of breath on exertion, denied chest pain, palpitation that admitted for occasional cough productive of whitish sputum. Patient said he has chronic bilateral leg swelling but recently it is getting worse. There is a discharge from right leg. Patient said he was scheduled to see a wound doctor. In the emergency department patient was in septic shock, acute renal failure, lactic acidosis, respiratory failure and A. fib with RVR. Patient will be admitted to ICU for further evaluation and management. Seismology Technical Officer, wrist closer and general office associate consulted. acute respiratory failure on MV > 96 hours cont vent, mgt per pulmonology Septic shock/ severe sepsis, source could be likely right leg wound vs intra- abdominal source IV abx, pressors, ID on board Metabolic acidosis cont bicarb ggt Right leg wound, R leg cellulitis? abscess, -had increased drainage per his - Wound care consulted, GS consulted, vascular consulted Acute renal failure, likely ATN cont pressors and ivf hyperkalemia, medically rx by converter supervisor Hypernatremia - Likely due to dehydration, cont free water replacement Abdominal pain - CT abdomen and pelvis is negative - Symptomatic management -DW dr ruelas, there is some free air, KUB is wnl, need repeat CT A/P Diabetes mellitus - Sliding-scale insulin, Accu-Chek, ADA diet Afib w rvr rate control per cardiology Alcohol abuse CIWA protocol COPD exacerbation mgt per pulmonology DVT prophylaxis - Heparin Had family meeting, advance care planning done for > 30 minutes, discussed with , son and two brothers, and they would like to continue aggressive care, th ey would like DNR since he is already on vent and pressors, and would hold DNR if he needed any surgeries or emergent HD, the patient when he was verbal was clear that he did not want to be sustained on machines long-term The high probability of a clinically significant, sudden or life threatening deterioration of the [CV, renal] system(s) required my full and direct attention, intervention and personal management. The aggregate critical care time was [] minutes. This time is in addition to time spent performing reported procedures but includes the following: [x] Data Review and interpretation [x] Patient assessment and monitoring of vital signs [x] Documentation [x] Medication orders and management History Interval history: Patient had fever MAXIMUM TEMPERATURE of 100.5 No vomiting Continues to be vent dependent, continues to be tachycardic No seizures Hospitalist Physical - Physical exam Narrative exam: General.: Appears ill, toxic appearance, intubated HEENT: Moist mucous membranes, extraocular muscles intact, no lymphadenopathy Neck: supple Cardiac: S1-S2 heard Lungs: Decreased air entry Abdomen: soft , nontender, nondistended, bowel sounds positive Extremities: Bilateral lower extremity lymphedema, there is a necrotic wound on the right lateral leg which is draining some foul-smelling mucopurulent drainage Skin: No rash Neurologic: no gross focal deficits Psych: calm, and cooperative - Constitutional Vitals: Temp Pulse Resp BP Pulse Ox 100.7 F H 170 H 29 H 82/54 84 03/27/19 12:46 03/27/19 14:15 03/27/19 14:15 03/27/19 14:15 03/27/19 14:15 General appearance: Present: other (patient is sedated, on the vent) Results - Labs CBC & Chem 7: 03/26/19 05:35 03/27/19 19:30 Labs: Laboratory Last Values WBC 15.3 K/mm3 (4.5-11.0) H 03/26/19 05:35 RBC 3.42 M/mm3 (3.65-5.03) L 03/26/19 05:35 Hgb 10.8 gm/dl (11.8-15.2) L 03/26/19 05:35 Hct 31.9 % (35.5-45.6) L 03/26/19 05:35 MCV 93 fl (84-94) 03/26/19 05:35 MCH 32 pg (28-32) 03/26/19 05:35 MCHC 34 % (32-34) 03/26/19 05:35 RDW 15.0 % (13.2-15.2) 03/26/19 05:35 Plt Count 528 K/mm3 (140-440) H 03/26/19 05:35 Lymph % (Auto) Alarm Technician 03/26/19 05:35 [place] % (Auto) Alarm Technician 03/26/19 05:35 Eos % (Auto) Alarm Technician 03/26/19 05:35 Baso % (Auto) Alarm Technician 03/26/19 05:35 Lymph # Alarm Technician 03/26/19 05:35 [place] # Alarm Technician 03/26/19 05:35 Eos # Alarm Technician 03/26/19 05:35 Baso # Alarm Technician 03/26/19 05:35 Add Manual Diff Complete 03/26/19 05:35 Total Counted 100 03/26/19 05:35 Seg Neutrophils % Alarm Technician 03/26/19 05:35 Seg Neuts % (Manual) 81.0 % (40.0-70.0) H 03/26/19 05:35 14.0 % 03/26/19 05:35 3.0 % (13.4-35.0) L 03/26/19 05:35 Reactive Lymphs % (Man) 0 % 03/26/19 05:35 2.0 % (0.0-7.3) 03/26/19 05:35 0 % (0.0-4.3) 03/26/19 05:35 0 % (0.0-1.8) 03/26/19 05:35 0 % 03/26/19 05:35 0 % 03/26/19 05:35 0 % 03/26/19 05:35 0 % 03/26/19 05:35 Nucleated RBC % Not Reportable 03/26/19 05:35 Seg Neutrophils # Alarm Technician 03/26/19 05:35 Seg Neutrophils # Man 12.4 K/mm3 (1.8-7.7) H 03/26/19 05:35 Band Neutrophils # 2.1 K/mm3 03/26/19 05:35 0.5 K/mm3 (1.2-5.4) L 03/26/19 05:35 Abs React Lymphs (Man) 0.0 K/mm3 03/26/19 05:35 0.3 K/mm3 (0.0-0.8) 03/26/19 05:35 0.0 K/mm3 (0.0-0.4) 03/26/19 05:35 0.0 K/mm3 (0.0-0.1) 03/26/19 05:35 0.0 K/mm3 03/26/19 05:35 0.0 K/mm3 03/26/19 05:35 0.0 K/mm3 03/26/19 05:35 Blast Cells # 0.0 K/mm3 03/26/19 05:35 WBC Morphology Not Reportable 03/26/19 05:35 Hypersegmented Neuts Not Reportable 03/26/19 05:35 Hyposegmented Neuts Not Reportable 03/26/19 05:35 Hypogranular Neuts Not Reportable 03/26/19 05:35 Not Reportable 03/26/19 05:35 Not Reportable 03/26/19 05:35 Not Reportable 03/26/19 05:35 Not Reportable 03/26/19 05:35 Not Reportable 03/26/19 05:35 Not Reportable 03/26/19 05:35 Appears increased 03/26/19 05:35 Not Reportable 03/26/19 05:35 Plt Clumps, EDTA Not Reportable 03/26/19 05:35 1+ 03/26/19 05:35 Not Reportable 03/26/19 05:35 Not Reportable 03/26/19 05:35 Plt Morphology Comment Not Reportable 03/26/19 05:35 RBC Morphology Normal 03/26/19 05:35 Dimorphic RBCs Not Reportable 03/26/19 05:35 Not Reportable 03/26/19 05:35 Not Reportable 03/26/19 05:35 Not Reportable 03/26/19 05:35 Not Reportable 03/26/19 05:35 Not Reportable 03/26/19 05:35 Not Reportable 03/26/19 05:35 Not Reportable 03/26/19 05:35 Not Reportable 03/26/19 05:35 Not Reportable 03/26/19 05:35 Not Reportable 03/26/19 05:35 Not Reportable 03/26/19 05:35 Not Reportable 03/26/19 05:35 Not Reportable 03/26/19 05:35 Not Reportable 03/26/19 05:35 Not Reportable 03/26/19 05:35 Not Reportable 03/26/19 05:35 Not Reportable 03/26/19 05:35 Not Reportable 03/26/19 05:35 Not Reportable 03/26/19 05:35 Acanthocytes (Spur) Not Reportable 03/26/19 05:35 Rouleaux Not Reportable 03/26/19 05:35 Not Reportable 03/26/19 05:35 Not Reportable 03/26/19 05:35 Not Reportable 03/26/19 05:35 Not Reportable 03/26/19 05:35 Hem Pathologist Commnt No 03/26/19 05:35 PT 15.0 Sec. (12.2-14.9) H 03/25/19 07:14 INR 1.11 (0.87-1.13) 03/25/19 07:14 APTT 31.4 Sec. (24.2-36.6) 03/25/19 07:14 POC ABG pH 7.278 (7.35-7.45) L 03/27/19 13:29 POC ABG pCO2 52.3 (35-45) H 03/27/19 13:29 POC ABG pO2 51 (80-105) L 03/27/19 13:29 POC ABG HCO3 24.5 (22-26 mml/L) 03/27/19 13:29 POC ABG Total CO2 26 (23-27mmol/L) 03/27/19 13:29 POC ABG O2 Sat 81 03/27/19 13:29 POC ABG Base Excess -2 ((-2) - (+3)mmol/L) 03/27/19 13:29 100 % 03/27/19 13:29 Sodium 140 mmol/L (137-145) 03/27/19 05:20 Potassium 6.2 mmol/L (3.6-5.0) H* 03/27/19 10:00 Chloride 97.0 mmol/L (98-107) L 03/27/19 05:20 Carbon Dioxide 24 mmol/L (22-30) 03/27/19 05:20 25 mmol/L 03/27/19 05:20 BUN 105 mg/dL (9-20) H 03/27/19 05:20 5.2 mg/dL (0.8-1.5) H 03/27/19 05:20 Estimated GFR 11 ml/min 03/27/19 05:20 20 % 03/27/19 05:20 Glucose 147 mg/dL (75-100) H 03/27/19 05:20 POC Glucose 249 (70-105) H 03/27/19 12:49 6.4 % (4-6) H 03/25/19 12:58 Lactic Acid 1.50 mmol/L (0.7-2.0) 03/25/19 12:58 Calcium 7.0 mg/dL (8.4-10.2) L 03/27/19 05:20 Magnesium 2.30 mg/dL (1.7-2.3) 03/25/19 05:20 0.30 mg/dL (0.1-1.2) 03/25/19 19:23 AST 93 units/L (5-40) H 03/25/19 19:23 ALT 42 units/L (7-56) 03/25/19 19:23 144 units/L (35-129) H 03/25/19 19:23 773 units/L (55-170) H 03/25/19 05:20 CK-MB (CK-2) 40.0 ng/mL (0.0-4.0) H 03/25/19 05:20 CK-MB (CK-2) Rel Index 5.1 (0-4) H 03/25/19 05:20 < 0.010 ng/mL (0.00-0.029) 03/25/19 05:20 NT-Pro-B Natriuret Pep 976.1 pg/mL (0-900) H 03/25/19 05:20 6.2 g/dL (6.3-8.2) L 03/25/19 19:23 1.6 g/dL (3.9-5) L 03/25/19 19:23 0.3 % 03/25/19 19:23 36 units/L (13-60) 03/25/19 05:20 Yellow (Yellow) 03/25/19 14:45 Clear (Clear) 03/25/19 14:45 5.0 (5.0-7.0) 03/25/19 14:45 Ur Specific [place] 1.013 (1.003-1.030) 03/25/19 14:45 <15 mg/dl mg/dL (Negative) 03/25/19 14:45 Neg mg/dL (Negative) 03/25/19 14:45 Neg mg/dL (Negative) 03/25/19 14:45 Sm (Negative) 03/25/19 14:45 Neg (Negative) 03/25/19 14:45 Neg (Negative) 03/25/19 14:45 2.0 mg/dL (<2.0) 03/25/19 14:45 Ur Leukocyte Esterase Neg (Negative) 03/25/19 14:45 < 1.0 /HPF (0.0-6.0) 03/25/19 14:45 9.0 /HPF (0.0-6.0) 03/25/19 14:45 U Epithel Cells (Auto) 1.0 /HPF (0-13.0) 03/25/19 14:45 Hyaline Casts 6 /LPF 03/25/19 14:45 Few /HPF 03/25/19 14:45 69.5 mg/dL (0.1-20.0) H 03/25/19 14:45 52 mmol/L 03/25/19 14:45 Random Vancomycin 9.1 ug/mL (0-40.0) 03/27/19 05:20 Blood Type O POSITIVE 03/25/19 08:54 Antibody Screen Negative 03/25/19 08:54 Active Medications - Current Medications Current Medications: Generic Name Dose Route Start Last Admin Trade Name Freq PRN Reason Stop Dose Admin Albuterol/Ipratropium 1 ampul 03/26/19 02:00 03/27/19 13:31 Duoneb *Not For Prn Use* IH Not Given Q6HRT GIO Budesonide 0.5 mg 03/25/19 12:45 03/27/19 09:04 Pulmicort IH 0.5 mg Q12HRT GIO Administration Dextrose 50 ml 03/25/19 12:07 D50w (25gm) Syringe IV PRN PRN Hypoglycemia Digoxin 0.125 mg 03/29/19 17:00 Lanoxin IV Q48H GIO Famotidine 20 mg 03/27/19 10:00 Pepcid IV DAILY GIO Heparin Sodium (Porcine) 5,000 unit 03/25/19 14:00 03/27/19 06:23 Heparin SUB-Q 5,000 unit Q8HR GIO Administration Hydrophilic Ointment 1 applic 03/25/19 18:31 Vaseline Lip Therapy TP Q2HR PRN Dry Lips Cefepime HCl 0.5 gm/ Sodium 100 mls @ 200 mls/hr 03/25/19 10:00 03/27/19 10:23 Chloride IV 200 mls/hr Q12HR GIO Administration Vasopressin 20 unit/ Sodium 101 mls @ 9.09 mls/hr 03/25/19 12:00 03/27/19 04:11 Chloride IV 0.03 units/min TITR GIO 9.09 mls/hr Administration Protocol 0.03 UNITS/MIN Norepinephrine 4 mg in 250 mls @ 7.5 mls/hr 03/25/19 18:27 03/27/19 12:44 Levophed Drip 4 Mg/Ns 250 Ml IV 24 mcg/min TITR GIO 90 mls/hr Administration Protocol 2 MCG/MIN Propofol 1,000 mg in 100 mls @ 4.38 mls/hr 03/25/19 19:00 03/26/19 20:00 Diprivan 10 Mg/Ml IV 0 mcg/kg/min TITR GIO 0 mls/hr Titration Protocol 5 MCG/KG/MIN Dopamine HCl/Dextrose 800 mg in 250 mls @ 5.475 mls/hr 03/26/19 06:00 03/27/19 06:25 Intropin Drip 800 Mg/D5w 250 Ml IV 0 mcg/kg/min TITR GIO 0 mls/hr Titration Protocol 2 MCG/KG/MIN Sodium Bicarbonate 150 meq/ 1,150 mls @ 125 mls/hr 03/26/19 09:00 03/27/19 04 :09 Dextrose IV Infused DIRECT GIO Infusion Insulin Human Lispro 0 unit 03/26/19 07:00 03/27/19 06:16 Humalog SUB-Q Not Given Q6HR GIO Protocol Multi-Ingred Cream/Lotion/Oil/Oint 1 applic 03/25/19 18:31 Artificial Tears Ophth Oint OU Q4HR PRN Dry Eye(s) Nutrition/Malnutrition Assess - Dietary Evaluation Nutrition/Malnutrition Findings: Nutrition Notes Start: 03/26/19 14:30 Freq: Status: Active Protocol: Document 03/26/19 14:31 RM (Rec: 03/26/19 14:51 RM [id number]) Nutrition Notes Need for Assessment generated from: MD Order Initial or Follow up Assessment Current Diagnosis Acute Kidney Injury,Diabetes, Sepsis,Hypertension Other Pertinent Diagnosis Bilat neck edema, lower abdominal pain, septic shock, R leg wound Current Diet No diet ordered Labs/Tests K 5.7 Pertinent Medications Propofol 4.5 ml/hr (119 kcal/ day) Height 5 ft 8 in Weight 148.8 kg [place] Body Weight (kg) 70.00 BMI 49.8 Subjective/Other Information Consulted for evaluate nutritional intake. Screened for skin risk. Ariel 14 points. Burn Absent Trauma Absent #1 Nutrition Diagnosis Inadequate oral intake Etiology on vent As Evidenced by Signs and Symptoms NPO status Is patient on ventilator? Yes Is Patient Ambulatory and/or Out of Bed No REE-([place]-confined to bed) 2713.260 Kcal/Kg value to use for calculation 15 Approximate Energy Requirements Using 2232 kcal/Kg Calculation Used for Recommendations Kcal/kg Additional Notes Protein Needs: 175 kg (2.5g/kg IBW) Fluid Needs: 1 ml/kcal Nutrition Intervention Change Diet Order: TF consult Nutrition Support: Nepro at 65 ml/hr. Water flush of 300 mls q 4 hrs . Kcal 2,808 Protein (gm) 126 Fluid (mL) 1,134 Goal #1 TF consult Anticipated Discharge Needs: Unable to determine at this time Follow-Up By: 03/28/19 Additional Comments Follow for TF consult
--- NOTE | 2019-03-27 14:32 | Consultation ---
History of Present Illness - Reason for Consult Consult date: 03/27/19 RLE wounds - History of Present Illness 63-year-old male with past medical history significant for morbid obesity, bilateral neck edema, diabetes mellitus, hypertension presented to the emergency department with complaints of lower abdominal pain. Pain was sharp, 10 out of 10 intensity, with no radiation, not alleviating or aggravating factors identified. Patient had bowel movement last night. Patient denied nausea, vomiting, diarrhea, constipation, fever, chills. Patient also complains shortness of breath on exertion, denied chest pain, palpitation that admitted for occasional cough productive of whitish sputum. Patient said he has chronic bilateral leg swelling but recently it is getting worse. There is a discharge from right leg. Patient said he was scheduled to see a wound doctor. In the emergency department patient was in septic shock, acute renal failure, lactic acidosis, respiratory failure and A. fib with RVR. Patient will be admitted to ICU for further evaluation and management. Vascular as in consulted due to right lower extremity wound. Prior to seeing the patient, CT of the abdomen and pelvis was reviewed which demonstrated free peritoneal air around the liver, right hemidiaphragm, and near the duodenum concerning for peptic ulcer disease perforation. I immediately con tacted Dr. Barrientos, the hospitalist and Dr. Harrison, the material lister to alert them so that general surgery can see the patient. Past History Past Medical History: diabetes, hypertension, other (obesity, chronic lymphedema) Past Surgical History: Other (removal of skin cancer on his shoulder area) Social history: smoking (smoked 2 packs of cigarettes per day), full code. denies: alcohol abuse, prescription drug abuse, IV drug use Family history: no significant family history Medications and Allergies Allergies Allergy/AdvReac Type Severity Reaction Status Date / Time venom-honey bee AdvReac Shortness Verified 03/25/19 04:55 of Breath Home Medications Medication Instructions Recorded Confirmed Last Taken Type Bactrim 400-80 mg Tablet 2 tab PO BID 03/26/19 03/26/19 03/23/19 History Etodolac 500 mg PO BID 03/26/19 03/26/19 03/23/19 10:00 History Gabapentin [Neurontin] 300 mg PO BID 03/26/19 03/26/19 03/23/19 10:00 History Lisinopril 03/26/19 03/24/19 10:00 History metFORMIN 03/26/19 03/24/19 History predniSONE [Deltasone] 40 mg PO QDAY 03/26/19 03/26/19 03/23/19 10:00 History Active Meds: Active Medications Albuterol/Ipratropium (Duoneb *Not For Prn Use*) 1 ampul [facility] Q6HRT [facility] Last Admin: 03/27/19 13:31 Dose: Not Given Documented by: Budesonide (Pulmicort) 0.5 mg IH Q12HRT [facility] Last Admin: 03/27/19 09:04 Dose: 0.5 mg Documented by: Dextrose (D50w (25gm) Syringe) 50 ml IV PRN PRN PRN Reason: Hypoglycemia Digoxin (Lanoxin) 0.125 mg IV Q48H [facility] Famotidine (Pepcid) 20 mg IV DAILY [facility] Heparin Sodium (Porcine) (Heparin) 5,000 unit SUB-Q Q8HR [facility] Last Admin: 03/27/19 06:23 Dose: 5,000 unit Documented by: Hydrophilic Ointment (Vaseline Lip Therapy) 1 applic TP Q2HR PRN PRN Reason: Dry Lips Cefepime HCl 0.5 gm/ Sodium (Chloride) 100 mls @ 200 mls/hr IV Q12HR [facility] Last Admin: 03/27/19 10:23 Dose: 200 mls/hr Documented by: Vasopressin 20 unit/ Sodium (Chloride) 101 mls @ 9.09 mls/hr IV TITR [facility]; Protocol Last Admin: 03/27/19 04:11 Dose: 0.03 units/min, 9.09 mls/hr Documented by: Norepinephrine (Levophed Drip 4 Mg/Ns 250 Ml) 4 mg in 250 mls @ 7.5 mls/hr IV TITR [facility]; Protocol Last Admin: 03/27/19 12:44 Dose: 24 mcg/min, 90 mls/hr Documented by: Propofol (Diprivan 10 Mg/Ml) 1,000 mg in 100 mls @ 4.38 mls/hr IV TITR [facility]; Protocol Last Titration: 03/26/19 20:00 Dose: 0 mcg/kg/min, 0 mls/hr Documented by: Dopamine HCl/Dextrose (Intropin Drip 800 Mg/D5w 250 Ml) 800 mg in 250 mls @ 5.475 mls/hr IV TITR [facility]; Protocol Last Titration: 03/27/19 06:25 Dose: 0 mcg/kg/min, 0 mls/hr Documented by: Sodium Bicarbonate 150 meq/ (Dextrose) 1,150 mls @ 125 mls/hr IV DIRECT [facility] Last Infusion: 03/27/19 04:09 Dose: Infused Documented by: Insulin Human Lispro (Humalog) 0 unit SUB-Q Q6HR [facility]; Protocol Last Admin: 03/27/19 06:16 Dose: Not Given Documented by: Multi-Ingred Cream/Lotion/Oil/Oint (Artificial Tears Ophth Oint) 1 applic OU Q4HR PRN PRN Reason: Dry Eye(s) Review of Systems ROS unobtainable: due to endotracheal tube, due to mental status Exam - Constitutional Vitals: Temp Pulse Resp BP Pulse Ox 100.7 F H 170 H 29 H 82/54 84 03/27/19 12:46 03/27/19 14:15 03/27/19 14:15 03/27/19 14:15 03/27/19 14:15 General appearance: Present: other (intubated) - EENT ENT: other (intubated) - Respiratory Respiratory effort: other (intubated) - Extremities Extremities: normal temperature, normal color Extremity abnormal: edema (lymphedema of the lower extremities), ulceration (ul ceration of the right lower extremity with some slough and some eschar associated with it), pulses diminished (cannot palpate pedal pulses, but on multiple pressors) - Abdominal General gastrointestinal: Present: distended (obese and distended) - Psychiatric Psychiatric: other (intubated) Results - Labs CBC & Chem 7: 03/26/19 05:35 03/27/19 10:00 Labs: Abnormal lab results 03/26/19 03/26/19 03/27/19 Range/Units 17:48 21:24 00:53 POC ABG pH (7.35-7.45) POC ABG pCO2 (35-45) POC ABG pO2 (80-105) Potassium 5.7 H (3.6-5.0) mmol/L Chloride 96.3 L (98-107) mmol/L BUN 104 H (9-20) mg/dL Creatinine 5.3 H (0.8-1.5) mg/dL Glucose 152 H (75-100) mg/dL POC Glucose 200 H 163 H (70-105) Calcium 7.1 L (8.4-10.2) mg/dL 03/27/19 03/27/19 03/27/19 Range/Units 05:20 10:00 10:13 POC ABG pH (7.35-7.45) POC ABG pCO2 (35-45) POC ABG pO2 (80-105) Potassium 5.7 H 6.2 H* (3.6-5.0) mmol/L Chloride 97.0 L (98-107) mmol/L BUN 105 H (9-20) mg/dL Creatinine 5.2 H (0.8-1.5) mg/dL Glucose 147 H (75-100) mg/dL POC Glucose 204 H (70-105) Calcium 7.0 L (8.4-10.2) mg/dL 03/27/19 03/27/19 03/27/19 Range/Units 11:11 12:49 13:29 POC ABG pH 7.262 L 7.278 L (7.35-7.45) POC ABG pCO2 53.3 H 52.3 H (35-45) POC ABG pO2 56 L 51 L (80-105) Potassium (3.6-5.0) mmol/L Chloride (98-107) mmol/L BUN (9-20) mg/dL Creatinine (0.8-1.5) mg/dL Glucose (75-100) mg/dL POC Glucose 249 H (70-105) Calcium (8.4-10.2) mg/dL - Imaging and Cardiology CT scan - abdomen: report reviewed, image reviewed Assessment and Plan 63-year-old patient with multiple medical problems including lymphedema and right lower extremity wound with request for vasculature for evaluation due to active sepsis. CT of the abdomen and pelvis was reviewed which demonstrated free peritoneal air around the liver, right hemidiaphragm, and near the duodenum concerning for peptic ulcer disease perforation. I immediately contacted Dr. Barrientos, the hospitalist and Dr. Harrison, the material lister to alert them so that general surgery can see the patient. I suspect the free air is the etiology for the patient's sepsis. There is lymphedema of the lower extremities in a right lower extremity venous ulcer which is quite extensive, probably somewhat chronic, and has associated eschar with it. Pulses cannot be palpated due to active pressors. Full arterial and venous workup can be performed if patient survives this acute illness. Recommend contacting wound care physicians for debridement such as Lee Swift or [facility]. Although the patient will benefit from debridement and antibiotics, I do not believe this is the source of the sepsis given the patient's presentation to the hospital.
[2019-03-27] MEDS: SODIUM BICARBONATE 150 MEQ in D5W 1,000 ML IV SCH (14:40)
--- NOTE | 2019-03-27 16:15 | Consultation ---
History of Present Illness - Reason for Consult Consult date: 03/27/19 Severe sepsis Requesting physician: LIZETH BARRIENTOS - History of Present Illness The patient is a 63-year-old male with morbid obesity, bilateral chronic lymphedema, diabetes mellitus type 2, hypertension was brought into the emergency room on 03/25/2019 with complaints of severe abdominal pain. He was found to be in septic shock, acute renal failure with lactic acidosis. He was intubated and admitted to the ICU for further management. He was empirically started on IV cefepime. CT abdomen and pelvis without contrast on admission shows some free air intraperitoneally concerning for possible viscous perforation. Patient remains critically ill, on 2 pressors. His CODE STATUS was changed to DO NOT RESUSCITATE. History obtained by chart review and by discussing with patient's RN at bedside. ID was consulted for antibiotic recommendations and severe sepsis with shock. Review of Systems: Unable to obtain, patient sedated, intubated Past History Past Medical History: diabetes, hypertension, other (obesity, chronic lymphed teddy) Past Surgical History: Other (removal of skin cancer on his shoulder area) Social history: smoking (smoked 2 packs of cigarettes per day), full code. denies: alcohol abuse, prescription drug abuse, IV drug use Family history: no significant family history Medications and Allergies Allergies Allergy/AdvReac Type Severity Reaction Status Date / Time venom-honey bee AdvReac Shortness Verified 03/25/19 04:55 of Breath Home Medications Medication Instructions Recorded Confirmed Last Taken Type Bactrim 400-80 mg Tablet 2 tab PO BID 03/26/19 03/26/19 03/23/19 History Etodolac 500 mg PO BID 03/26/19 03/26/19 03/23/19 10:00 History Gabapentin [Neurontin] 300 mg PO BID 03/26/19 03/26/19 03/23/19 10:00 History Lisinopril 03/26/19 03/24/19 10:00 History metFORMIN 03/26/19 03/24/19 History predniSONE [Deltasone] 40 mg PO QDAY 03/26/19 03/26/19 03/23/19 10:00 History Active Meds: Active Medications Albuterol/Ipratropium (Duoneb *Not For Prn Use*) 1 ampul IH Q6HRT [facility] Last Admin: 03/27/19 13:31 Dose: Not Given Documented by: Budesonide (Pulmicort) 0.5 mg IH Q12HRT [facility] Last Admin: 03/27/19 09:04 Dose: 0.5 mg Documented by: Dextrose (D50w (25gm) Syringe) 50 ml IV PRN PRN PRN Reason: Hypoglycemia Digoxin (Lanoxin) 0.125 mg IV Q48H [facility] Famotidine (Pepcid) 20 mg IV DAILY [facility] Heparin Sodium (Porcine) (Heparin) 5,000 unit SUB-Q Q8HR [facility] Last Admin: 03/27/19 06:23 Dose: 5,000 unit Documented by: Hydrophilic Ointment (Vaseline Lip Therapy) 1 applic TP Q2HR PRN PRN Reason: Dry Lips Cefepime HCl 0.5 gm/ Sodium (Chloride) 100 mls @ 200 mls/hr IV Q12HR [facility] Last Admin: 03/27/19 10:23 Dose: 200 mls/hr Documented by: Vasopressin 20 unit/ Sodium (Chloride) 101 mls @ 9.09 mls/hr IV TITR [facility]; Protocol Last Admin: 03/27/19 04:11 Dose: 0.03 units/min, 9.09 mls/hr Documented by: Norepinephrine (Levophed Drip 4 Mg/Ns 250 Ml) 4 mg in 250 mls @ 7.5 mls/hr IV TITR [facility]; Protocol Last Admin: 03/27/19 12:44 Dose: 24 mcg/min, 90 mls/hr Documented by: Propofol (Diprivan 10 Mg/Ml) 1,000 mg in 100 mls @ 4.38 mls/hr IV TITR [facility]; Protocol Last Titration: 03/26/19 20:00 Dose: 0 mcg/kg/min, 0 mls/hr Documented by: Dopamine HCl/Dextrose (Intropin Drip 800 Mg/D5w 250 Ml) 800 mg in 250 mls @ 5.475 mls/hr IV TITR [facility]; Protocol Last Titration: 03/27/19 06:25 Dose: 0 mcg/kg/min, 0 mls/hr Documented by: Sodium Bicarbonate 150 meq/ (Dextrose) 1,150 mls @ 125 mls/hr IV DIRECT [facility] Last Admin: 03/27/19 14:40 Dose: 125 mls/hr Documented by: Insulin Human Lispro (Humalog) 0 unit SUB-Q Q6HR [facility]; Protocol Last Admin: 03/27/19 06:16 Dose: Not Given Documented by: Multi-Ingred Cream/Lotion/Oil/Oint (Artificial Tears Ophth Oint) 1 applic OU Q4HR PRN PRN Reason: Dry Eye(s) Physical Examination - Physical Exam Narrative exam: Physical Exam: Constitutional: sedated, intubated Head, Ears, Nose: Normocephalic, atraumatic. External ears, nose normal Eyes: Conjunctivae/corneas clear. No icterus. No ptosis. Neck: Supple, no meningeal signs Oral: intubated Cardiovascular: S1, S2 normal. Respiratory: Good air entry, clear to auscultation bilaterally GI: distended, bowel sounds absent. No peritoneal signs Musculoskeletal: b/l LE with chronic lymphedema, stasis dermatitis, RLE with a superficial venous ulcer/wound. Skin: No rash or abscess Hem/Lymphatic: No palpable cervical or supraclavicular nodes. No lymphangitis Psych: no agitation Neurological: sedated, intubated, on vent - Constitutional Vitals: Vital Signs Temp Pulse Resp BP Pulse Ox 100.7 F H 177 H 28 H 96/63 84 03/27/19 12:46 03/27/19 16:00 03/27/19 16:00 03/27/19 16:00 03/27/19 16:00 Temperature -Last 24 Hours Temperature 100.7 F Temperature 100.7 F Temperature 100.6 F Temperature 100.3 F Temperature 100.3 F Temperature 97.4 F Temperature 98.0 F Temperature 97.8 F Results - Labs CBC & Chem 7: 03/26/19 05:35 03/27/19 10:00 Labs: Abnormal lab results 03/26/19 03/26/19 03/27/19 Range/Units 17:48 21:24 00:53 POC ABG pH (7.35-7.45) POC ABG pCO2 (35-45) POC ABG pO2 (80-105) Potassium 5.7 H (3.6-5.0) mmol/L Chloride 96.3 L (98-107) mmol/L BUN 104 H (9-20) mg/dL Creatinine 5.3 H (0.8-1.5) mg/dL Glucose 152 H (75-100) mg/dL POC Glucose 200 H 163 H (70-105) Calcium 7.1 L (8.4-10.2) mg/dL 03/27/19 03/27/19 03/27/19 Range/Units 05:20 10:00 10:13 POC ABG pH (7.35-7.45) POC ABG pCO2 (35-45) POC ABG pO2 (80-105) Potassium 5.7 H 6.2 H* (3.6-5.0) mmol/L Chloride 97.0 L (98-107) mmol/L BUN 105 H (9-20) mg/dL Creatinine 5.2 H (0.8-1.5) mg/dL Glucose 147 H (75-100) mg/dL POC Glucose 204 H (70-105) Calcium 7.0 L (8.4-10.2) mg/dL 03/27/19 03/27/19 03/27/19 Range/Units 11:11 12:49 13:29 POC ABG pH 7.262 L 7.278 L (7.35-7.45) POC ABG pCO2 53.3 H 52.3 H (35-45) POC ABG pO2 56 L 51 L (80-105) Potassium (3.6-5.0) mmol/L Chloride (98-107) mmol/L BUN (9-20) mg/dL Creatinine (0.8-1.5) mg/dL Glucose (75-100) mg/dL POC Glucose 249 H (70-105) Calcium (8.4-10.2) mg/dL - Imaging and Cardiology CT scan - abdomen: report reviewed, image reviewed (concerning for free air intra-abdominally) Assessment and Plan Cultures: 03/25/2019 blood culture: No growth 03/25/2019 urine culture: No growth 03/25/2019 sputum culture: Usual respiratory carol 03/26/2019 wound culture: Usual skin carol A/P: 63-year-old male with morbid obesity, bilateral chronic lymphedema, diabetes mellitus type 2, hypertension admitted with abdominal pain, sepsis and shock: 1) Septic shock: Likely secondary to intra-abdominal source/viscus perforation. CT abdomen and pelvis with evidence of small amount of free air. Cover for enteric carol with Cefepime and Flagyl. Surgery consulted, poor prognosis, patient on 2 pressors, high mortality. 2) Bilateral lymphedema of the lower extremities with chronic venous stasis tarsha matitis: Right lower extremity has a superficial wound, appears venous in etiology. Recommend wound care. Wound does not appear to be grossly infected. 3) Acute renal failure: Renal dose antibiotics 4) Acute respiratory failure: On mechanical ventilation 5) Morbid obesity Recs: Continue on IV cefepime, adjust dose based on renal function IV Flagyl added to cover for intra-abdominal source Prognosis extremely poor D/W Dr. Barrientos. Also discussed with RN. MD Cindy Sanchez [facility] C: [phone] O: [phone] F: [phone]
[2019-03-27] MEDS ORDERED: LEVOPHED 8 MG in NACL 0.9% 250ML 242 ML IV SCH (17:00)
[2019-03-27] MEDS ORDERED: FLAGYL 500 MG/100 ML 500 MG/100 ML BAG IV SCH (17:00)
[2019-03-27 20:15] LABS: Calcium 6.9 mg/dL (8.4-10.2)
[2019-03-27 21:01] VITALS: BP 75/37
[2019-03-27] MEDS ORDERED: KIONEX PR ONE (21:13)
[2019-03-27] MEDS ORDERED: NACL 0.9% 1000 ML 1,000 ML IV ONE (21:16)
--- NOTE | 2019-03-27 21:20 | Event Note ---
Date: 03/27/19 Critically ill patient. Per discussion with surgery per Nursing staff, patient too unstable for surgery. Will give fluid challenge for better blood pressure control Will also attempt Kayxlate per Rectum, only if his BP will hold in changing patient position to allow for this, Otherwise will use Insulin based cocktail with calcium gluconate. Discussed with Debt And Budget Counselor at this time, recommend solu-cortef q8hr also advised that he has discussed the severity of illness with the family and they understand.
--- NOTE | 2019-03-27 22:50 | Death Note ---
Note Date of : 03/27/19 Time of : 22:30 Time Pronounced: 22:32 - Preliminary Cause of (problem) (1) Cardiac arrest Preliminary cause of Pupils are fixed and dilated, no spontaneous respiration, no heart sounds or pulses noted. (2) Septic shock Preliminary cause of (3) Acute respiratory failure Qualifiers: Respiratory failure complication: hypoxia Qualified Code(s): J96.01 - Acute respiratory failure with hypoxia Preliminary cause of
--- NOTE | 2019-03-27 23:36 | Death Summary ---
<ELOISE ROSALES - Last Filed: 03/28/19 01:38> Summary - Providers Date of service: 03/27/19 Consults: 03/25/19 10:48 Consult to Physician [CONS] Routine Comment: Consulting Provider: OBIE HORAN Physician Instructions: Reason For Exam: septic shock 03/25/19 10:53 Consult to Physician [CONS] Routine Comment: Consulting Provider: JOSE GALLOWAY Physician Instructions: Reason For Exam: a fib with RVR 03/25/19 10:55 Consult to PICC Line RN [CONS] Routine Reason For Exam: need pressers Type Line:: PICC Consult to Physician [CONS] Routine Comment: Dr. Peng saw patient @ 14:00- [facility] Consulting Provider: MAUDE PENG Physician Instructions: Reason For Exam: ARF 03/25/19 11:39 Consult to Wound/ET Nurse [CONS] Routine Reason For Exam: wound eval 03/25/19 18:31 Consult to Dietitian/Nutrition [CONS] Routine Physician Instructions: Reason For Exam: Reason for Consult: Evaluate nutritional intake 03/26/19 13:27 Consult to Physician [CONS] Routine Comment: Consulting Provider: JESSICA LOYOLA Physician Instructions: Reason For Exam: R leg infection 03/26/19 16:51 Consult to Physician [CONS] Routine Comment: Consulting Provider: NISA IBANEZ Physician Instructions: Reason For Exam: right lower leg ulcer 03/27/19 14:25 Consult to Physician [CONS] Routine Comment: Consulting Provider: JESUS STEINER Physician Instructions: Reason For Exam: severe sepsis Attending: LIZETH MAYEN MD - summary Date of admission: 03/25/19 09:37 Date of : 03/27/19 Reason for admission: septic shock, acute renal failure, lactic acidosis, respiratory failure Significant findings: CT of the abdomen and pelvis was reviewed which demonstrated free peritoneal air around the liver, right hemidiaphragm, and near the duodenum concerning for peptic ulcer disease perforation. Gen Surgery consulted. Per discussion with surgery per Nursing staff, patient too unstable for surgery. Will give fluid challenge for better blood pressure control Will also attempt Kayxlate per Rectum, only if his BP will hold in changing patient position to allow for this, Otherwise will use Insulin based cocktail with calcium gluconate. Discussed with Economics Lecturer at this time, recommend solu-cortef q8hr also advised that he has discussed the severity of illness with the family and they understand. Procedures/treatments rendered: 63-year-old male with past medical history significant for morbid obesity, bilateral neck edema, diabetes mellitus, hypertension presented to the emergency department with complaints of lower abdominal pain. Pain was sharp, 10 out of 10 intensity, with no radiation, not alleviating or aggravating factors identified. Patient had bowel movement last night. Patient denied nausea, vomiting, diarrhea, constipation, fever, chills. Patient also complains shortness of breath on exertion, denied chest pain, palpitation that admitted for occasional cough productive of whitish sputum. Patient said he has chronic bilateral leg swelling but recently it is getting worse. There is a discharge from right leg. Patient said he was scheduled to see a wound doctor. In the emergency department patient was in septic shock, acute renal failure, lactic acidosis, respiratory failure and A. fib with RVR. Patient will be admitted to ICU for further evaluation and management. Economics Lecturer, cardiology rn and financial management analyst consulted. acute respiratory failure on MV > 96 hours cont vent, mgt per pulmonology Septic shock/ severe sepsis, source could be likely right leg wound vs intra- abdominal source IV abx, pressors, ID on board Metabolic acidosis cont bicarb ggt Right leg wound, R leg cellulitis? abscess, -had increased drainage per his - Wound care consulted, GS consulted, vascular consulted Acute renal failure, likely ATN cont pressors and ivf hyperkalemia, medically rx by spray ii painter Hypernatremia - Likely due to dehydration, cont free water replacement Abdominal pain - CT abdomen and pelvis is negative - Symptomatic management -DW dr ibanez, there is some free air, KUB is wnl, need repeat CT A/P Diabetes mellitus - Sliding-scale insulin, Accu-Chek Afib w rvr rate control per cardiology Alcohol abuse CIWA protocol COPD exacerbation mgt per pulmonology Disposition: Preliminary Cause of (problem) (1) Cardiac arrest Preliminary cause of Pupils are fixed and dilated, no spontaneous respiration, no heart sounds or pulses noted. (2) Septic shock Preliminary cause of (3) Acute respiratory failure Qualifiers: Respiratory failure complication: hypoxia Qualified Code(s): J96.01 - Acute respiratory failure with hypoxia Preliminary cause of - Final diagnosis (1) Cardiac arrest Note: Final diagnosis: (2) Septic shock Note: Final diagnosis: (3) Acute respiratory failure Qualifiers: Respiratory failure complication: hypoxia Qualified Code(s): J96.01 - Acute respiratory failure with hypoxia Note: Final diagnosis: <LIZBETH MUÑOZ - Last Filed: 03/28/19 06:04> Summary - Providers Consults: 03/25/19 10:48 Consult to Physician [CONS] Routine Comment: Consulting Provider: OBIE HORAN Physician Instructions: Reason For Exam: septic shock 03/25/19 10:53 Consult to Physician [CONS] Routine Comment: Consulting Provider: JOSE GALLOWAY Physician Instructions: Reason For Exam: a fib with RVR 03/25/19 10:55 Consult to PICC Line RN [CONS] Routine Reason For Exam: need pressers Type Line:: PICC Consult to Physician [CONS] Routine Comment: Dr. Peng saw patient @ 14:00- LXM Consulting Provider: MAUDE PENG Physician Instructions: Reason For Exam: ARF 03/25/19 11:39 Consult to Wound/ET Nurse [CONS] Routine Reason For Exam: wound eval 03/25/19 18:31 Consult to Dietitian/Nutrition [CONS] Routine Physician Instructions: Reason For Exam: Reason for Consult: Evaluate nutritional intake 03/26/19 13:27 Consult to Physician [CONS] Routine Comment: Consulting Provider: JESSICA LOYOLA Physician Instructions: Reason For Exam: R leg infection 03/26/19 16:51 Consult to Physician [CONS] Routine Comment: Consulting Provider: NISA IBANEZ Physician Instructions: Reason For Exam: right lower leg ulcer 03/27/19 14:25 Consult to Physician [CONS] Routine Comment: Consulting Provider: JESUS STEINER Physician Instructions: Reason For Exam: severe sepsis Attending: LIZETH MAYEN MD - summary Date of admission: 03/25/19 09:37 Significant findings: I saw and evaluated the patient. I agree with the findings and the plan of care as documented in the Nurse Practitioner's~note, with the following corrections and additions.
[2019-03-29] MEDS ORDERED: LANOXIN IV SCH (17:00)
== END 2019-03-27 23:58 | DRG 871 ==
LOC: ED 04:42 → CC1 09:37
PROVIDERS: ADMIT Internal Medicine; ATTEND Internal Medicine
PROC: 5A1945Z Respiratory Ventilation, 24-96 Consecutive Hours (ICD-10-PCS; principal; 2019-03-25)
PROC: 0BH17EZ Insertion of Endotracheal Airway into Trachea, Via Natural or Artificial Opening (ICD-10-PCS; 2019-03-25)
PROC: 4A033R1 Measurement of Arterial Saturation, Peripheral, Percutaneous Approach (ICD-10-PCS; 2019-03-25)
PROC: 5A09357 Assistance with Respiratory Ventilation, Less than 24 Consecutive Hours, Continuous Positive Airway Pressure (ICD-10-PCS; 2019-03-25)
DX: A41.9 Sepsis, unspecified organism (principal); N17.0 Acute kidney failure with tubular necrosis; R65.21 Severe sepsis with septic shock; J96.00 Acute respiratory failure, unspecified whether with hypoxia or hypercapnia; E87.0 Hyperosmolality and hypernatremia; Z68.42 Body mass index [BMI] 45.0-49.9, adult; J44.1 Chronic obstructive pulmonary disease with (acute) exacerbation; I13.0 Hypertensive heart and chronic kidney disease with heart failure and stage 1 through stage 4 chronic kidney disease, or unspecified chronic kidney disease; I50.9 Heart failure, unspecified; F17.210 Nicotine dependence, cigarettes, uncomplicated; I89.1 Lymphangitis; I48.91 Unspecified atrial fibrillation; E87.5 Hyperkalemia; E66.01 Morbid (severe) obesity due to excess calories; F10.10 Alcohol abuse, uncomplicated; D64.9 Anemia, unspecified; E11.621 Type 2 diabetes mellitus with foot ulcer; N18.9 Chronic kidney disease, unspecified; E11.22 Type 2 diabetes mellitus with diabetic chronic kidney disease; Z66 Do not resuscitate; I46.9 Cardiac arrest, cause unspecified
CPT/HCPCS: 36415; 36600; 71045; 74018; 74176; 80048; 80053; 80202; 81001; 82140; 82550; 82553; 82570; 82803; 82962; 83036; 83690; 83735; 83880; 84132; 84300; 84484; 85007; 85025; 85610; 85730; 86850; 86900; 86901; 87040; 87070; 87086; 87116; 87205; 93005; 93010; 93306; 93970; 94002; 94003; 94640; 99292; G0378; J0610; J0692; J1160; J1265; J1644; J1815; J2543; J2704; J3370; J7030; J7040; J7050; J7070